=== PATIENT | male | born 1930 | race Caucasian/White ===

== ENCOUNTER → 2016-09-01 | Outpatient (CLI) | payer OTHER, MEDICARE ==
[~2016-09-01] MED LIST: ATEN50TA8 PO; BICA50TA2 PO; CALC1CAP36 PO; HYDR12.55 PO; PRLSR20 PO
== END | disposition home or self-care (01) ==
LOC: C.LABSPEC 11:24
PROVIDERS: ATTEND Internal Medicine
DX: R19.5 Other fecal abnormalities (principal)

== ENCOUNTER → 2016-09-02 | Outpatient (CLI) | payer OTHER, MEDICARE ==
--- NOTE | 2016-09-02 11:07 | DIAGNOSTIC IMAGING REPORT ---
ABDOMEN AND PELVIS CT WITH ORAL CONTRAST CT DOSE: 703.32 mGy.cm HISTORY: Weight loss. Abdominal cramping. Loose stools. TECHNIQUE: Multiaxial CT images of the abdomen and pelvis were performed following the use of oral contrast. COMPARISON STUDY: None. FINDINGS: There is a 3 mm nodule within the right middle lobe. The left lung base is clear. No pneumoperitoneum. No pneumatosis. There is a right total hip arthroplasty. There is a right-sided L5 pars defect. The unenhanced liver, spleen, adrenal glands, gallbladder, and pancreas appear to be unremarkable. No renal stones or hydronephrosis. Multiple bilateral renal hypodense lesions. Some these demonstrate faint peripheral calcification. These are incompletely characterized on this noncontrast study but favor cysts. Dominant lesion within the upper pole of the right kidney measures 8 cm. No retroperitoneal lymphadenopathy. The bladder is not well-distended and partially obscured by the metallic artifact at the pelvis. Tiny fat-containing left inguinal hernia. A fat-containing structure within the deep pelvis on image 392 likely represents an epiploic appendage. There is mild soft tissue thickening surrounding this epiploic appendage without associated fat stranding. Therefore, this is likely chronic. Colonic diverticulosis. No bowel wall thickening or obstruction. The appendix is not identified and is likely surgically absent. The spleen is top normal in size measuring 12 cm. IMPRESSION: 1. No bowel wall thickening or obstruction. 2. Colonic diverticulosis. 3. Multiple bilateral renal hypodense lesions. These are incompletely characterized on this noncontrast study but favor cysts. 4. Additional findings as described above. Electronically signed by: Jero Knight M.D. 09/02/2016 11:06 AM Dictated Date/Time: 09/02/2016 10:54 AM
== END | disposition home or self-care (01) ==
LOC: C.CTS 10:24
PROVIDERS: ATTEND Internal Medicine
DX: K57.30 Diverticulosis of large intestine without perforation or abscess without bleeding (principal); N28.9 Disorder of kidney and ureter, unspecified; R63.4 Abnormal weight loss

== ENCOUNTER → 2017-02-19 | Outpatient (CLI) | payer OTHER, MEDICARE ==
[2017-02-19 08:19] LABS: URINE TOTAL PROTEIN < 5.0 mg/dl (0-11.9)
== END | disposition home or self-care (01) ==
LOC: C.LABSPEC 07:34
PROVIDERS: ATTEND Internal Medicine Nephrology
DX: N18.3 Chronic kidney disease, stage 3 (moderate) (principal)

== ENCOUNTER 2017-11-09 19:02 | Inpatient (IN) | payer OTHER, MEDICARE ==
[~2017-11-09] VITALS: Ht 188 cm; Wt 88.0 kg
--- NOTE | 2017-11-09 19:21 | EMERGENCY ROOM VISIT NOTE ---
History Report prepared by Patrick: Xenia Gorman Under the Supervision of: Estrella CraigO. First contact with patient: 19:04 Chief Complaint: CARDIAC ASSESSMENT Stated Complaint: CHEST PAIN History of Present Illness The patient is a 87 year old male who presents to the Emergency Room with complaints of persistent episodes of chest pain that began about 6 hours prior to arrival. He reports that about an hour after eating lunch, he began experiencing chest pain. The patient states that the pain went away on its own, but returned prior to arrival. During this second episode, the patient was also experiencing severe chills. He notes that he has been experiencing shortness of breath recently, stating that it worsened with exertion. The patient denies any recent fevers, nausea, or vomiting. He states that he had a stress performed within the last 6 months, which showed normal results. Per EMS, the patient has a history of metastasis and leukemia, noting that he takes chemotherapy pills everyday. Source of History: patient Onset: about 6 hours ago Position: chest Quality: other (chest pain) Timing: other (persistent) Associated Symptoms: + chills, No fevers, No nausea, No vomiting Review of Systems See HPI for pertinent positives & negatives. A total of 10 systems reviewed and were otherwise negative. Past Medical & Surgical Medical Problems: (1) Asthma (2) HTN (hypertension) (3) Prostate carcinoma Surgical Problems: (1) History of appendectomy (2) History of herniorrhaphy Family History Patient reports no known family medical history. No pertinent family history. Social History Smoking Status: Never Smoker Marital Status: Housing Status: lives with family Occupation Status: retired Current/Historical Medications Scheduled Atenolol (Tenormin), 25 MG PO DAILY Bicalutamide (Casodex), 50 MG PO DAILY Calcitriol (Calcitriol), 0.25 MCG PO DAILY Calcium Polycarbophil (Fibercon), 625 MG PO DAILY Cranberry (Vaccinium Macrocarp (Cranberry), 500 MG PO DAILY Cyanocobalamin (Cyanocobalamin), 1 DOSE IM Q2 WEEKS Diltiazem Hcl Coated Beads (Cartia Xt), 240 MG PO Q2D Hydrochlorothiazide (Hctz), 12.5 MG PO Q2D Omeprazole (Prilosec), 40 MG PO DAILY Zolpidem Tartrate (Zolpidem Tartrate), 10 MG PO HS Allergies Coded Allergies: Penicillins (Verified Allergy, Mild, 08/24/09) RASH Sulfa Antibiotics (Verified Allergy, Unknown, UNKNOWN, 08/13/14) Physical Exam Vital Signs Date Time Temp Pulse Resp B/P (MAP) Pulse Ox O2 Delivery O2 Flow Rate FiO2 11/09/17 22:00 73 20 164/89 94 Room Air 11/09/17 21:09 70 20 142/78 96 Nasal Cannula 2.0 11/09/17 19:43 58 20 152/74 98 Nasal Cannula 2.0 11/09/17 19:33 98 Nasal Cannula 2.0 11/09/17 19:25 97 Room Air 11/09/17 19:20 57 11/09/17 19:17 95 Room Air 11/09/17 19:17 36.6 80 20 127/71 95 Room Air Physical Exam GENERAL: Patient is awake, alert, and in no acute distress. Patient is resting comfortably and showing no signs of anxiety EYES: The conjunctivae are clear. The pupils are round and reactive. EARS, NOSE, MOUTH AND THROAT: The nose is without any evidence of any deformity. Mucous membranes are moist tongue is midline NECK: The neck is nontender and supple. RESPIRATORY: Normal respiratory effort is noted there is no evidence of wheezing rhonchi or rales CARDIOVASCULAR: Regular rate and rhythm noted there no murmurs rubs or gallops normal S1 normal S2 GASTROINTESTINAL: The abdomen is soft. Bowel sounds are present in all quadrants. Abdomen is nontender MUSCULOSKELETAL/EXTREMITIES: There is no evidence of gross deformity full range of motion is noted in the hips and shoulders SKIN: Trade pedal edema bilaterally. There are no petechiae, pallor or cyanosis noted. NEUROLOGIC: Patient is awake alert and oriented x3 Medical Decision & Procedures ER Provider Diagnostic Interpretation: Radiology results as stated below per my review and radiologist interpretation: CHEST ONE VIEW PORTABLE HISTORY: Atypical CHEST PAIN COMPARISON: Chest 08/13/2014. FINDINGS: The lungs are clear. Cardiac silhouette is normal in size. No pleural effusions. No pneumothorax. IMPRESSION: No acute process. Electronically signed by: Jero Knight M.D. 11/09/2017 7:37 PM Dictated Date/Time: 11/09/2017 7:35 PM Laboratory Results 11/09/17 18:32 Red Blood Count 3.66, Mean Corpuscular Volume 95.4, Mean Corpuscular Hemoglobin 30.9, Mean Corpuscular Hemoglobin Concent 32.4, Mean Platelet Volume 10.1, Neutrophils (%) (Auto) 9.6, Lymphocytes (%) (Auto) 88.4, Monocytes (%) (Auto) 1.5, Eosinophils (%) (Auto) 0.2, Basophils (%) (Auto) 0.1, Neutrophils # (Auto) 6.05, Lymphocytes # (Auto) 55.71, Monocytes # (Auto) 0.93, Eosinophils # (Auto) 0.11, Basophils # (Auto) 0.09 11/09/17 18:32 Test 11/09/17 18:32 11/09/17 19:26 White Blood Count 63.03 K/uL (4.8-10.8) Red Blood Count 3.66 M/uL (4.7-6.1) Hemoglobin 11.3 g/dL (14.0-18.0) Hematocrit 34.9 % (42-52) Mean Corpuscular Volume 95.4 fL (80-100) Mean Corpuscular Hemoglobin 30.9 pg (25-34) Mean Corpuscular Hemoglobin Concent 32.4 g/dl (32-36) Platelet Count 179 K/uL (130-400) Mean Platelet Volume 10.1 fL (7.4-10.4) Neutrophils (%) (Auto) 9.6 % Lymphocytes (%) (Auto) 88.4 % Monocytes (%) (Auto) 1.5 % Eosinophils (%) (Auto) 0.2 % Basophils (%) (Auto) 0.1 % Neutrophils # (Auto) 6.05 K/uL (1.4-6.5) Lymphocytes # (Auto) 55.71 K/uL (1.2-3.4) Monocytes # (Auto) 0.93 K/uL (0.11-0.59) Eosinophils # (Auto) 0.11 K/uL (0-0.5) Basophils # (Auto) 0.09 K/uL (0-0.2) RDW Standard Deviation 51.2 fL (36.4-46.3) RDW Coefficient of Variation 14.8 % (11.5-14.5) Immature Granulocyte % (Auto) 0.2 % Immature Granulocyte # (Auto) 0.14 K/uL (0.00-0.02) Smudge Cells PRESENT Ovalocytes 1+ Echinocytes 1+ Prothrombin Time 12.1 SECONDS (9.0-12.0) Prothromb Time International Ratio 1.2 (0.9-1.1) Activated Partial Thromboplast Time 26.2 SECONDS (21.0-31.0) Partial Thromboplastin Ratio 1.0 Anion Gap 8.0 mmol/L (3-11) Est Creatinine Clear Calc Drug Dose 33.4 ml/min Estimated GFR () 36.9 Estimated GFR (Non- 31.9 BUN/Creatinine Ratio 14.4 (10-20) Calcium Level 8.6 mg/dl (8.5-10.1) Total Bilirubin 0.4 mg/dl (0.2-1) Direct Bilirubin 0.1 mg/dl (0-0.2) Aspartate Amino Transf (AST/SGOT) 14 U/L (15-37) Alanine Aminotransferase (ALT/SGPT) 14 U/L (12-78) Alkaline Phosphatase 164 U/L (45-117) Total Creatine Kinase 50 U/L (39-308) Creatine Kinase MB 1.4 ng/ml (0.5-3.6) Creatine Kinase MB Ratio 2.8 (0-3.0) Total Protein 7.2 gm/dl (6.4-8.2) Albumin 3.6 gm/dl (3.4-5.0) Lipase 192 U/L (73-393) Bedside Troponin I < 0.030 ng/ml (0-0.045) Laboratory results per my review. ECG Per My Interpretation Indication: chest pain Rate (beats per minute): 61 Rhythm: normal sinus Findings: PAC, ST depression (Inferior, anterior, and lateral) Comparison ECG Date: initial EKG performed by EMS Change: EKG performed at hospital after arrival: sinus bradycardia, rate of 58, 1st degree AV block, PVC's noted, improvement of previously noted ST depressions. Similar to EKG from 01/06/2002. ED Course 1904: The patient was evaluated in room A3. A complete history and physical examination were performed. 2040: I discussed the patient's case with Maycol Camilo [facility]. The patient will be evaluated for further management. Medical Decision Prior records/ancillary studies reviewed. Triage Nursing notes reviewed. Additional history obtained from EMS. The patient's history was concerning for chest pain. Differential diagnosis: Etiologies such as cardiac ischemia, aortic dissection, pulmonary embolism, pneumonia, pneumothorax, musculoskeletal, infections, pericarditis, myocarditis , esophageal rupture, gastrointestinal, as well as others were entertained. The patient is an 87-year-old male who presented to the emergency department by ambulance for chest discomfort. According to the paramedics the patient had very significant chest pain as well as diaphoresis. His initial EKG done by the prehospital personnel did reveal significant ST segment abnormalities. The patient was treated with aspirin and nitroglycerin prior to arrival. He was pain-free upon arrival. His initial EKG done by the prehospital personnel showed some ST segment abnormalities. Repeat EKG in the emergency department reviewed significant improvement. I discussed patient's laboratory and radiographic studies with him. I discussed the limitations of the emergency department workup for chest pain with him. At this time I feel the patient's discomfort is from a cardiac source especially given the exertional component. For this reason I discussed his case with the on-call [facility] hospitalist. They have agreed to evaluate the patient in the emergency department for further management and disposition. Medication Reconcilliation Current Medication List: was personally reviewed by me Blood Pressure Screening Patient's blood pressure: Elevated blood pressure Blood pressure disposition: Elevated BP felt to be situational Consults Time Called: 2040 Consulting Physician: GUS Menjivar Returned Call: 2040 I discussed the patient's case with Maycol Camilo [facility]. The patient will be evaluated for further management. Impression Primary Impression: Chest pain Additional Impression: Abnormal EKG Scribe Attestation The scribe's documentation has been prepared under my direction and personally reviewed by me in its entirety. I confirm that the note above accurately reflects all work, treatment, procedures, and medical decision making performed by me. Departure Information Dispostion Being Evaluated By Hospitalist Referrals Siria Pizarro (PCP) Forms IMPORTANT VISIT INFORMATION Patient Instructions My [facility] Problem Qualifiers Primary Impression: Chest pain Chest pain type: unspecified Qualified Codes: R07.9 - Chest pain, unspecified
--- NOTE | 2017-11-09 19:39 | DIAGNOSTIC IMAGING REPORT ---
CHEST ONE VIEW PORTABLE HISTORY: Atypical CHEST PAIN COMPARISON: Chest 08/13/2014. FINDINGS: The lungs are clear. Cardiac silhouette is normal in size. No pleural effusions. No pneumothorax. IMPRESSION: No acute process. Electronically signed by: Jero Knight M.D. 11/09/2017 7:37 PM Dictated Date/Time: 11/09/2017 7:35 PM
[2017-11-09 19:44] LABS: ALBUMIN 3.6 gm/dl (3.4-5.0); CALCIUM 8.6 mg/dl (8.5-10.1); CREATININE 1.88 mg/dl (0.60-1.40); POTASSIUM 3.7 mmol/L (3.5-5.1)
[2017-11-09 19:46] LABS: INR 1.2 (0.9-1.1); PTT PATIENT 26.2 SECONDS (21.0-31.0)
[2017-11-09 19:49] LABS: CKMB 1.4 ng/ml (0.5-3.6); TOTAL PROTEIN 7.2 gm/dl (6.4-8.2)
[2017-11-09] MEDS ORDERED: DILT240C48 PO (19:58)
[2017-11-09] MEDS ORDERED: HYDR25TA4 PO (19:58)
[2017-11-09] MEDS ORDERED: ZOLP10TA6 PO (19:58)
[2017-11-09] MEDS ORDERED: OMEP40CA41 PO (20:07)
[2017-11-09] MEDS ORDERED: CYNI1000 IM (20:09)
[2017-11-09] MEDS ORDERED: CRAN500C2 PO (20:09)
[2017-11-09] MEDS ORDERED: CALC625T PO (20:09)
[2017-11-09 20:22] LABS: HEMATOCRIT 34.9 % (42-52); HEMOGLOBIN 11.3 g/dL (14.0-18.0); MEAN CELL VOLUME 95.4 fL (80-100); MEAN CORPUSCULAR HEMOGLOBIN 30.9 pg (25-34); MEAN CORPUSCULAR HGB CONC 32.4 g/dl (32-36); MEAN PLATELET VOLUME 10.1 fL (7.4-10.4); PLATELET COUNT 179 K/uL (130-400); RED CELL DISTRIBUTION WIDTH CV 14.8 % (11.5-14.5); RED CELL DISTRIBUTION WIDTH SD 51.2 fL (36.4-46.3); WHITE BLOOD COUNT 63.03 K/uL (4.8-10.8)
[2017-11-09 21:03] LABS: BASO % 0.1 %; BASO ABS # 0.09 K/uL (0-0.2); EOS % 0.2 %; EOS ABS # 0.11 K/uL (0-0.5); IG# 0.14 K/uL (0.00-0.02); LYMPH % 88.4 %; LYMPH ABS # 55.71 K/uL (1.2-3.4); MONO % 1.5 %; MONO ABS # 0.93 K/uL (0.11-0.59); NEUT % 9.6 %; NEUT ABS # 6.05 K/uL (1.4-6.5)
[2017-11-09] MEDS ORDERED: ALUMINUM/MAGNESIUM/SIMETH (MAALOX MAX) 30 ML UDC PO PRN (22:00)
[2017-11-09] MEDS ORDERED: ONDANSETRON INJ 2 MG/ML 2 ML VIAL IV PRN (22:00)
[2017-11-09] MEDS ORDERED: MAGNESIUM HYDROXIDE SUSP 30 ML UDC PO PRN (22:00)
[2017-11-09] MEDS ORDERED: ACETAMINOPHEN 325 MG TAB PO PRN (22:00)
[2017-11-09] MEDS ORDERED: POLYETHYLENE (MIRALAX) 17 GM PACK PO PRN (22:00)
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
[2017-11-10] VITALS (22 sets, daily range): BP systolic 83–151; BP diastolic 49–81; PULSE 56–79; TEMP 36.6–36.9; O2SAT 91–99; Ht 188 cm; Wt 88.0 kg
[2017-11-10] MEDS ORDERED: IV FLUIDS COMPLETED PRN (01:30)
[2017-11-10] MEDS: NITROGLYCERIN 0.4 MG SL PER TAB CHARGE SL PRN ×2 (02:16→02:24)
[2017-11-10] MEDS: ZOLPIDEM TARTRATE 10 MG TAB PO SCH ×2 (02:44→22:41)
[2017-11-10 04:29] LABS: CALCIUM 8.8 mg/dl (8.5-10.1); CREATININE 1.57 mg/dl (0.60-1.40); POTASSIUM 3.6 mmol/L (3.5-5.1)
[2017-11-10 04:55] LABS: HEMATOCRIT 32.4 % (42-52); HEMOGLOBIN 10.3 g/dL (14.0-18.0); MEAN CELL VOLUME 95.9 fL (80-100); MEAN CORPUSCULAR HEMOGLOBIN 30.5 pg (25-34); MEAN CORPUSCULAR HGB CONC 31.8 g/dl (32-36); MEAN PLATELET VOLUME 10.2 fL (7.4-10.4); PLATELET COUNT 144 K/uL (130-400); RED CELL DISTRIBUTION WIDTH CV 14.8 % (11.5-14.5); RED CELL DISTRIBUTION WIDTH SD 50.4 fL (36.4-46.3); WHITE BLOOD COUNT 51.63 K/uL (4.8-10.8)
[2017-11-10] MEDS ORDERED: HEPARIN 25,000 UNIT/500ML D5W 500 ML IV SCH (05:00)
[2017-11-10] MEDS ORDERED: HEPARIN IV BOLUS 7,000 UNIT in SYRINGE 0 ML IV ONE (05:00)
[2017-11-10 05:36] LABS: BASO % 0.1 %; BASO ABS # 0.06 K/uL (0-0.2); EOS % 0.1 %; EOS ABS # 0.07 K/uL (0-0.5); IG# 0.08 K/uL (0.00-0.02); LYMPH % 90.8 %; LYMPH ABS # 46.89 K/uL (1.2-3.4); MONO % 1.1 %; MONO ABS # 0.59 K/uL (0.11-0.59); NEUT % 7.7 %; NEUT ABS # 3.94 K/uL (1.4-6.5)
[2017-11-10] MEDS ORDERED: ASPIRIN 81 MG CHEW PO STA (07:59)
[2017-11-10] MEDS: DILTIAZEM HCL 240 MG CAPCR PO SCH (08:43)
[2017-11-10] MEDS: HYDROCHLOROTHIAZIDE 25 MG TAB PO SCH (08:43)
[2017-11-10] MEDS ORDERED: ASPIRIN 81 MG ECTAB PO SCH ×2 (09:00)
[2017-11-10] MEDS: ATORVASTATIN 40 MG TAB PO SCH (09:00)
[2017-11-10] MEDS: BICALUTAMIDE 50 MG TAB PO SCH (09:00)
--- NOTE | 2017-11-10 09:27 | Cardiology Consultation ---
Cardiology Consultation Date of Consultation: Nov 10, 2017. Requesting Physician: Dr. Warren Reason for Consultation: Chest pain Pt evaluation today including: conversation w/ patient, physical exam, lab review, review of studies, review of inpatient medication list History of Present Illness This is an 87 yo male with no diagnosed CAD but a history of AGUILAR for which he had evaluation 12/30/2016 with an echo and dobutamine stress test which were unremarkable. He has had progressive fatigue and over the past few months significantly more AGUILAR but no orthopnea or PND, no leg swelling. No chest pain until yesterday when he had onset of rest L sided chest pain associated with SOB. 911 was called and the symptoms were relieved by NTGX2. His initial torponin was normal, but he had recurrent chest pain during the night, also relieved by NTGX2 and his second troponin was elevated to 0.69. He was started on Heparin and is now pain free. He has a history of untreated CLL, no bleeding history. He has been NPO. He also has a history of palpitations and has frequent PVCs. Past Medical/Surgical History (1) Prostate carcinoma (2) Asthma (3) HTN (hypertension) (4) History of appendectomy (5) History of herniorrhaphy Family History Patient reports no known family medical history. Social History Smoking Status: Never Smoker History of Alcohol Use: No Review of Systems Constitutional: No fever, No weight loss, No weakness Respiratory: + see HPI, + shortness of breath, + dyspnea on exertion, No cough , No wheezing Cardiac: + see HPI, + chest pain, + palpitations, No orthopnea, No PND, No edema Abdomen: No pain, No nausea, No vomiting, No diarrhea, No GI bleeding Male : No urinary frequency, No nocturia more than once/night, No slowing stream, No sexual dysfunction Neurologic: No paralysis, No weakness, No numbness/tingling, No balance problems Heme: No abnormal bleeding/bruising, No clotting problems Endo: No fatigue Skin: No problem reported All Other Systems: Reviewed and Negative Allergies Coded Allergies: Penicillins (Verified Allergy, Mild, 08/24/09) RASH Sulfa Antibiotics (Verified Allergy, Unknown, UNKNOWN, 08/13/14) Medications Current Inpatient Medications Medications (Trade) Dose Ordered Sig/Sigifredo Route Start Time Stop Time Status Last Admin Dose Admin Acetaminophen (Tylenol Tab) 650 mg Q4H PRN PO 11/09/17 22:00 12/09/17 21:59 Al Hydrox/Mg Hydrox/Simethicone (Maalox Max Susp) 15 ml Q4H PRN PO 11/09/17 22:00 12/09/17 21:59 Magnesium Hydroxide (Milk Of Magnesia Susp) 30 ml Q12H PRN PO 11/09/17 22:00 12/09/17 21:59 Ondansetron HCl (Zofran Inj) 4 mg Q6H PRN IV 11/09/17 22:00 12/09/17 21:59 Nitroglycerin (Nitrostat Tab) 0.4 mg UD PRN SL 11/09/17 22:00 12/09/17 21:59 11/10/17 02:24 0.4 MG Polyethylene (Miralax Powder Packet) 17 gm DAILY PRN PO 11/09/17 22:00 12/09/17 21:59 Atenolol (Tenormin Tab) 25 mg DAILY PO 11/10/17 09:00 12/10/17 08:59 11/10/17 08:42 25 MG Bicalutamide (Casodex Tab) 50 mg DAILY PO 11/10/17 09:00 12/10/17 08:59 Diltiazem HCl (Cardizem Cd Cap) 240 mg Q2D PO 11/10/17 09:00 12/10/17 08:59 11/10/17 08:43 240 MG Hydrochlorothiazide (Hydrochlorothiazide Tab) 12.5 mg Q2D PO 11/10/17 09:00 12/10/17 08:59 11/10/17 08:43 12.5 MG Miscellaneous (Iv Fluids Completed) 1 ea PRN PRN N/A 11/10/17 01:30 11/10/18 01:29 Zolpidem Tartrate (Ambien Tab) 10 mg HS PO 11/10/17 02:30 12/10/17 02:29 11/10/17 02:44 10 MG Heparin Sodium/ Dextrose 500 ml @ 31 mls/hr Q16H8M IV 11/10/17 05:00 12/10/17 04:59 11/10/17 05:06 31 MLS/HR Atorvastatin Calcium (Lipitor Tab) 80 mg QAM PO 11/10/17 09:00 12/10/17 08:59 Aspirin (Ecotrin Tab) 81 mg QAM PO 11/11/17 09:00 12/10/17 08:59 Physical Exam Vital Signs Past 12 Hours Date Time Temp Pulse Resp B/P (MAP) Pulse Ox O2 Delivery O2 Flow Rate FiO2 11/10/17 07:31 36.6 76 16 131/74 (93) 95 Room Air 11/10/17 06:40 95 Room Air 11/10/17 04:05 36.8 73 16 142/71 (94) 93 Nasal Cannula 2.0 11/10/17 04:00 95 Nasal Cannula 2.0 11/10/17 02:25 79 18 104/57 (73) 91 Nasal Cannula 2.0 11/10/17 02:16 36.7 71 18 151/80 (103) 94 Nasal Cannula 2.0 11/10/17 00:02 36.8 70 18 143/81 97 Room Air 11/09/17 23:00 59 20 139/72 97 Room Air 11/09/17 22:00 73 20 164/89 94 Room Air 11/09/17 21:09 70 20 142/78 96 Nasal Cannula 2.0 Constitutional: General Apperance: heathly-appearing Level of Distress: NAD Psychiatric: Mental Status: active & alert Head: normocephalic Eyes: EOM: EOMI ENMT: normal ENT inspection, hearing grossly normal Neck: supple, no masses Lungs: Respiratory effort: no dyspnea, good air movement Auscultation: breath sounds normal, no wheezing Cardiovascular: Heart Auscultation: RRR, no murmurs, no rubs, no gallops Peripheral Pulses: Bruits: none appreciated Abdomen: Bowel Sounds: normal Inspection & Palpation: soft, no tenderness, guarding & rebound, no masses Musculoskeletal: normal strength (5/5 throughout) Extremities: no edema Neurologic: Cranial Nerves: grossly intact Sensation: grossly intact Data Laboratory Results: Last 24 Hours Test 11/09/17 18:32 11/09/17 19:26 11/10/17 03:42 White Blood Count 63.03 K/uL 51.63 K/uL Red Blood Count 3.66 M/uL 3.38 M/uL Hemoglobin 11.3 g/dL 10.3 g/dL Hematocrit 34.9 % 32.4 % Mean Corpuscular Volume 95.4 fL 95.9 fL Mean Corpuscular Hemoglobin 30.9 pg 30.5 pg Mean Corpuscular Hemoglobin Concent 32.4 g/dl 31.8 g/dl Platelet Count 179 K/uL 144 K/uL Mean Platelet Volume 10.1 fL 10.2 fL Neutrophils (%) (Auto) 9.6 % 7.7 % Lymphocytes (%) (Auto) 88.4 % 90.8 % Monocytes (%) (Auto) 1.5 % 1.1 % Eosinophils (%) (Auto) 0.2 % 0.1 % Basophils (%) (Auto) 0.1 % 0.1 % Neutrophils # (Auto) 6.05 K/uL 3.94 K/uL Lymphocytes # (Auto) 55.71 K/uL 46.89 K/uL Monocytes # (Auto) 0.93 K/uL 0.59 K/uL Eosinophils # (Auto) 0.11 K/uL 0.07 K/uL Basophils # (Auto) 0.09 K/uL 0.06 K/uL RDW Standard Deviation 51.2 fL 50.4 fL RDW Coefficient of Variation 14.8 % 14.8 % Immature Granulocyte % (Auto) 0.2 % 0.2 % Immature Granulocyte # (Auto) 0.14 K/uL 0.08 K/uL Smudge Cells PRESENT PRESENT Ovalocytes 1+ 1+ Echinocytes 1+ Prothrombin Time 12.1 SECONDS Prothromb Time International Ratio 1.2 Activated Partial Thromboplast Time 26.2 SECONDS Partial Thromboplastin Ratio 1.0 Sodium Level 140 mmol/L 141 mmol/L Potassium Level 3.7 mmol/L 3.6 mmol/L Chloride Level 104 mmol/L 109 mmol/L Carbon Dioxide Level 28 mmol/L 27 mmol/L Anion Gap 8.0 mmol/L 5.0 mmol/L Blood Urea Nitrogen 27 mg/dl 25 mg/dl Creatinine 1.88 mg/dl 1.57 mg/dl Est Creatinine Clear Calc Drug Dose 33.4 ml/min 40.0 ml/min Estimated GFR () 36.9 45.9 Estimated GFR (Non- 31.9 39.6 BUN/Creatinine Ratio 14.4 15.7 Random Glucose 142 mg/dl 108 mg/dl Calcium Level 8.6 mg/dl 8.8 mg/dl Total Bilirubin 0.4 mg/dl Direct Bilirubin 0.1 mg/dl Aspartate Amino Transf (AST/SGOT) 14 U/L Alanine Aminotransferase (ALT/SGPT) 14 U/L Alkaline Phosphatase 164 U/L Total Creatine Kinase 50 U/L Creatine Kinase MB 1.4 ng/ml Creatine Kinase MB Ratio 2.8 Total Protein 7.2 gm/dl Albumin 3.6 gm/dl Lipase 192 U/L Bedside Troponin I < 0.030 ng/ml Troponin I 0.692 ng/ml Imaging: CXR unremarkable EKG: SR, no ST elevation. ECG during night shows subtle lateral T abnormalcies Telemetry reviewed: SR, PVCs Echo: Reviewed at bedside: Severe LV dysfunction Assessment & Plan 1. CP: Given his elevated Troponin and chest pain relieved by NTG CAD is the diagnosis of exclusion, although this is not consistent with an STEMI. His echo and normal enzymes on admission suggest long standing CAD or perhaps a cardiomyopathy. I have suggested a cardiac catheterization. 2. AGUILAR: This is long standing but now progressive. Related most likely to LV dysfunction or an anginal equivalent from CAD. 3. LV dysfunction: His LV was normal by echo 12/30/2016, clearly it is not now. We need to exclude CAD. 4. CLL: He has an elevated lymphocyte count, but no bleeding and his platelet count is normal. This should not interfere with the catheterization. 5. CKD: His creatinine is normally in the range of 1.5-1.6, where it is today. This should not pose and undue risk of dye nephrotoxicity. Thank You
[2017-11-10 11:24] LABS: PTT PATIENT 66.4 SECONDS (21.0-31.0)
--- NOTE | 2017-11-10 13:11 | Family Medicine Progress Note ---
Progress Note Date of Service Nov 10, 2017. Subjective Pt evaluation today including: conversation w/ patient, physical exam, chart review, lab review Pain: denies any pain PO Intake: NPO for procedure Voiding: no voiding problems This PM pt reports dyspnea on exertion but no sob at rest. No cp (resolved around 2am this AM). Denies any palpitations, n/v, abdominal pain. Constitutional: No fever Respiratory: + dyspnea on exertion, No shortness of breath Cardiovascular: No chest pain Abdomen: No pain, No nausea, No vomiting Male : No dysuria Medications Current Inpatient Medications Medications (Trade) Dose Ordered Sig/Sigifredo Route Start Time Stop Time Status Last Admin Dose Admin Acetaminophen (Tylenol Tab) 650 mg Q4H PRN PO 11/09/17 22:00 12/09/17 21:59 Al Hydrox/Mg Hydrox/Simethicone (Maalox Max Susp) 15 ml Q4H PRN PO 11/09/17 22:00 12/09/17 21:59 Magnesium Hydroxide (Milk Of Magnesia Susp) 30 ml Q12H PRN PO 11/09/17 22:00 12/09/17 21:59 Ondansetron HCl (Zofran Inj) 4 mg Q6H PRN IV 11/09/17 22:00 12/09/17 21:59 Nitroglycerin (Nitrostat Tab) 0.4 mg UD PRN SL 11/09/17 22:00 12/09/17 21:59 11/10/17 02:24 0.4 MG Polyethylene (Miralax Powder Packet) 17 gm DAILY PRN PO 11/09/17 22:00 12/09/17 21:59 Atenolol (Tenormin Tab) 25 mg DAILY PO 11/10/17 09:00 12/10/17 08:59 11/10/17 08:42 25 MG Bicalutamide (Casodex Tab) 50 mg DAILY PO 11/10/17 09:00 12/10/17 08:59 Diltiazem HCl (Cardizem Cd Cap) 240 mg Q2D PO 11/10/17 09:00 12/10/17 08:59 11/10/17 08:43 240 MG Hydrochlorothiazide (Hydrochlorothiazide Tab) 12.5 mg Q2D PO 11/10/17 09:00 5/24/18 08:59 11/10/17 08:43 12.5 MG Miscellaneous (Iv Fluids Completed) 1 ea PRN PRN N/A 11/10/17 01:30 11/10/18 01:29 Zolpidem Tartrate (Ambien Tab) 10 mg HS PO 11/10/17 02:30 12/10/17 02:29 11/10/17 02:44 10 MG Heparin Sodium/ Dextrose 500 ml @ 31 mls/hr Q16H8M IV 11/10/17 05:00 12/10/17 04:59 11/10/17 05:06 31 MLS/HR Atorvastatin Calcium (Lipitor Tab) 80 mg QAM PO 11/10/17 09:00 12/10/17 08:59 Aspirin (Ecotrin Tab) 81 mg QAM PO 11/11/17 09:00 12/10/17 08:59 Objective Vital Signs Date Time Temp Pulse Resp B/P (MAP) Pulse Ox O2 Delivery O2 Flow Rate FiO2 11/10/17 12:00 Room Air 11/10/17 12:00 36.6 59 16 117/58 (77) 97 Room Air 11/10/17 08:00 Room Air 11/10/17 07:31 36.6 76 16 131/74 (93) 95 Room Air 11/10/17 06:40 95 Room Air 11/10/17 04:05 36.8 73 16 142/71 (94) 93 Nasal Cannula 2.0 11/10/17 04:00 95 Nasal Cannula 2.0 11/10/17 02:25 79 18 104/57 (73) 91 Nasal Cannula 2.0 11/10/17 02:16 36.7 71 18 151/80 (103) 94 Nasal Cannula 2.0 11/10/17 00:02 36.8 70 18 143/81 97 Room Air 11/09/17 23:00 59 20 139/72 97 Room Air 11/09/17 22:00 73 20 164/89 94 Room Air 11/09/17 21:09 70 20 142/78 96 Nasal Cannula 2.0 11/09/17 19:43 58 20 152/74 98 Nasal Cannula 2.0 11/09/17 19:33 98 Nasal Cannula 2.0 11/09/17 19:25 97 Room Air 11/09/17 19:20 57 11/09/17 19:17 95 Room Air 11/09/17 19:17 36.6 80 20 127/71 95 Room Air Physical Exam General Appearance: no apparent distress Eyes: normal inspection Neck: supple Respiratory/Chest: lungs clear, normal breath sounds Cardiovascular: regular rate, rhythm, no murmur Abdomen: normal bowel sounds, non tender, soft Extremities: non-tender, normal inspection, no pedal edema Neurologic/Psychiatric: alert, oriented x 3 Skin: normal color, warm/dry Laboratory Results 11/10/17 03:42 Red Blood Count 3.38, Mean Corpuscular Volume 95.9, Mean Corpuscular Hemoglobin 30.5, Mean Corpuscular Hemoglobin Concent 31.8, Mean Platelet Volume 10.2, Neutrophils (%) (Auto) 7.7, Lymphocytes (%) (Auto) 90.8, Monocytes (%) (Auto) 1.1, Eosinophils (%) (Auto) 0.1, Basophils (%) (Auto) 0.1, Neutrophils # (Auto) 3.94, Lymphocytes # (Auto) 46.89, Monocytes # (Auto) 0.59, Eosinophils # (Auto) 0.07, Basophils # (Auto) 0.06 11/10/17 03:42 Test 11/09/17 18:32 11/09/17 19:26 11/10/17 03:42 11/10/17 10:51 Echinocytes 1+ Prothrombin Time 12.1 SECONDS (9.0-12.0) Prothromb Time International Ratio 1.2 (0.9-1.1) Total Bilirubin 0.4 mg/dl (0.2-1) Direct Bilirubin 0.1 mg/dl (0-0.2) Aspartate Amino Transf (AST/SGOT) 14 U/L (15-37) Alanine Aminotransferase (ALT/SGPT) 14 U/L (12-78) Alkaline Phosphatase 164 U/L (45-117) Total Creatine Kinase 50 U/L (39-308) Creatine Kinase MB 1.4 ng/ml (0.5-3.6) Creatine Kinase MB Ratio 2.8 (0-3.0) Total Protein 7.2 gm/dl (6.4-8.2) Albumin 3.6 gm/dl (3.4-5.0) Lipase 192 U/L (73-393) Bedside Troponin I < 0.030 ng/ml (0-0.045) White Blood Count 51.63 K/uL (4.8-10.8) Red Blood Count 3.38 M/uL (4.7-6.1) Hemoglobin 10.3 g/dL (14.0-18.0) Hematocrit 32.4 % (42-52) Mean Corpuscular Volume 95.9 fL (80-100) Mean Corpuscular Hemoglobin 30.5 pg (25-34) Mean Corpuscular Hemoglobin Concent 31.8 g/dl (32-36) Platelet Count 144 K/uL (130-400) Mean Platelet Volume 10.2 fL (7.4-10.4) Neutrophils (%) (Auto) 7.7 % Lymphocytes (%) (Auto) 90.8 % Monocytes (%) (Auto) 1.1 % Eosinophils (%) (Auto) 0.1 % Basophils (%) (Auto) 0.1 % Neutrophils # (Auto) 3.94 K/uL (1.4-6.5) Lymphocytes # (Auto) 46.89 K/uL (1.2-3.4) Monocytes # (Auto) 0.59 K/uL (0.11-0.59) Eosinophils # (Auto) 0.07 K/uL (0-0.5) Basophils # (Auto) 0.06 K/uL (0-0.2) RDW Standard Deviation 50.4 fL (36.4-46.3) RDW Coefficient of Variation 14.8 % (11.5-14.5) Immature Granulocyte % (Auto) 0.2 % Immature Granulocyte # (Auto) 0.08 K/uL (0.00-0.02) Smudge Cells PRESENT Ovalocytes 1+ Anion Gap 5.0 mmol/L (3-11) Est Creatinine Clear Calc Drug Dose 40.0 ml/min Estimated GFR () 45.9 Estimated GFR (Non- 39.6 BUN/Creatinine Ratio 15.7 (10-20) Calcium Level 8.8 mg/dl (8.5-10.1) Troponin I 2.860 ng/ml (0-0.045) Test 11/10/17 10:53 Activated Partial Thromboplast Time 66.4 SECONDS (21.0-31.0) Partial Thromboplastin Ratio 2.6 Date/Time Source Procedure Growth Status 11/10/17 00:00 Nasal MRSA DNA Surveillance Screen - Final Specimen Negative for MRSA by DNA Probe Complete Assessment and Plan 87 yoM with PMHX of CLL, HTN who p/w chest pain and worsening dyspnea on exertion. Initial troponin negative with subsequent uptrending troponins highest 2.86. Concern for lateral ST depression on EMS strip however no new ischemic changes on EKG. ECHO concerning for EF of 25-30% with akinesis of entire apex. Patient taken to farm labor contractor for potential re-vascularization. Chest pain: resolved s/p nitroglycerine - cxr neg - EKG negative for ischemic changes - elevated troponins to 2.86 - Stress Echo 01/03 negative for ischemia - ECHO today: LV systolic function mod-severely reduced; wall motion abnormalities; LA mod. dilated; mild mitral and aortic regurg; RV systolic pressure elevated 40-50mmHg; grade 1 diastolic dysfunction - Received aspirin 324mg once - On heparin drip - Started aspirin 81mg daily - Started Lipitor 80mg QAM - Continue Nitro PRN - Consult Cardiology - catheterization indicated - report pending HTN - continue home HCTZ 12.5 q2d, Atenolol 50 mg daily, Diltiazem 240 mg q 2d GERD - protonix 40mg QAM Leukocytosis - likely combination of stress demargination , CLL-related - Will monitor via CBC CLL -Continue Casodex DVT PPX - Lovenox Code: DNR Resident Physician Supervision Note: I interviewed and examined the patient. Discussed with Dr. Osorio and agree with findings and plan as documented in the note. I also discussed the case with residential solar sales consultant prior to the patient's cardiac cath. Final disposition will depend on the results of the cath later this afternoon. Documented By: Gabriele Chavira Resident Involvement: Resident Care Provided Care Provided: Adult Hospital Medicine
[2017-11-10] MEDS ORDERED: LIDOCAINE HCL 1% 20 ML VIAL ONE (13:37)
[2017-11-10] MEDS ORDERED: NiCARDipine HCL INJ 2.5 MG/ML 10 ML AMP ONE (13:38)
[2017-11-10] MEDS ORDERED: NITROGLYCERIN/D5W 100MCG/ML 20ML SYR ONE (13:38)
[2017-11-10] MEDS: MIDAZOLAM HCL 1 MG/ML 2ML VIAL ONE (13:49)
[2017-11-10] MEDS: FENTANYL CITRATE INJ 50 MCG/1 ML 2 ML VIAL ONE (13:50)
--- NOTE | 2017-11-10 14:16 | ECHOCARDIOGRAM REPORT ---
*NOTICE TO RECEIVING [employer] AGENCY This information is strictly Confidential and protected under [place] law. [place] law prohibits you from making any further disclosure of this information unless further disclosure is expressly permitted by the written consent of the person to whom it pertains or is authorized by law. A general authorization for the release of medical or other information is not sufficient for this purpose. Hospital accepts no responsibility if the information is made available to any other person, INCLUDING THE PATIENT. Interpretation Summary * Name: DAREN SALGADO Study Date: 11/10/2017 08:51 AM BP: 131/74 mmHg * Patient Location: .[facility]ICU\S\E110\S\1 HR: 76 * : 1930 (M/d/yyyy) Gender: Male Height: 74 in * Age: 87 yrs Ethnicity: CA Weight: 195 lb * Ordering Physician: Harry Leyva * Referring Physician: Self, Referred * Performed By: Conchita Akins RCS * * Reason For Study: Chest Pain * BSA: 2.1 m2 * -- Conclusions -- * Left ventricular systolic function is moderate to severely reduced. * Grade I diastolic dysfunction, (abnormal relaxation pattern). * There are regional wall motion abnormalities as specified. * The left atrium is moderately dilated. * Mild aortic regurgitation. * There is mild mitral regurgitation. * Right ventricular systolic pressure is elevated at 40-50mmHg. Procedure Details * A complete two-dimensional transthoracic echocardiogram was performed (2D, M-mode, Doppler and color flow Doppler). Left Ventricle * The left ventricle is normal in size. * There is normal left ventricular wall thickness. * Left ventricular systolic function is moderate to severely reduced. * Ejection Fraction = 25-30%. * Grade I diastolic dysfunction, (abnormal relaxation pattern). * There are regional wall motion abnormalities as specified. * The basal segments appear to contract normally with akinesis of the entire apex Right Ventricle * The right ventricle is normal in size and function. * The right ventricular systolic function is normal as assessed by tricuspid annular plane systolic excursion (TAPSE) (normal >1.5 cm). Atria * The left atrium is moderately dilated. * Right atrial size is normal. Mitral Valve * The mitral valve is grossly normal. * Cannot exclude a small prolapsing segment of the posterior leaflet * There is mild mitral regurgitation. Tricuspid Valve * The tricuspid valve is not well visualized, but is grossly normal. * There is mild tricuspid regurgitation. * Right ventricular systolic pressure is elevated at 40-50mmHg. Aortic Valve * Trileaflet valve with poor mobility of the right coronary cusp * Not adequately assessed * Mild aortic regurgitation. Pulmonic Valve * The pulmonic valve is not well visualized. Pericardium/Pleural * There is no pericardial effusion. MMode 2D Measurements and Calculations IVSd 1.0 cm IVSs 1.2 cm LVIDd 4.9 cm LVIDs 4.1 cm LVPWd 1.2 cm LVPWs 1.6 cm IVS/LVPW 0.89 FS 17.2 % EDV(Teich) 112.7 ml ESV(Teich) 72.4 ml EF(Teich) 35.8 % EDV(cubed) 117.5 ml ESV(cubed) 66.7 ml EF(cubed) 43.2 % % IVS thick 13.0 % % LVPW thick 35.3 % LV mass(C)d 201.8 grams LV mass(C)dI 93.9 grams/m\S\2 LV mass(C)s 208.5 grams LV mass(C)sI 97.0 grams/m\S\2 SV(Teich) 40.3 ml SI(Teich) 18.8 ml/m\S\2 SV(cubed) 50.8 ml SI(cubed) 23.6 ml/m\S\2 ACS 1.4 cm asc Aorta Diam 4.2 cm EDV(MOD-sp4) 156.0 ml ESV(MOD-sp4) 83.0 ml EF(MOD-sp4) 46.8 % EDV(MOD-sp2) 189.0 ml ESV(MOD-sp2) 111.0 ml EF(MOD-sp2) 41.3 % SV(MOD-sp4) 73.0 ml SI(MOD-sp4) 34.0 ml/m\S\2 SV(MOD-sp2) 78.0 ml SI(MOD-sp2) 36.3 ml/m\S\2 Doppler Measurements and Calculations MV E max tre 67.4 cm/sec MV A max tre 72.8 cm/sec MV E/A 0.93 MV P1/2t max tre 84.9 cm/sec MV P1/2t 55.8 msec MVA(P1/2t) 3.9 cm\S\2 MV dec slope 445.4 cm/sec\S\2 MV dec time 0.18 sec Ao V2 max 122.5 cm/sec Ao max PG 6.0 mmHg Ao max PG (full) 4.8 mmHg LV V1 max PG 1.2 mmHg LV V1 max 55.9 cm/sec PA V2 max 78.7 cm/sec PA max PG 2.5 mmHg PI max tre 223.6 cm/sec PI max PG 20.0 mmHg PI dec slope 88.2 cm/sec\S\2 PI P1/2t 742.2 msec TR max tre 297.0 cm/sec
[2017-11-10] MEDS ORDERED: HEPARIN SOD (PORCINE) 1000 UNIT/ML 10 ML VIAL ONE (14:24)
[2017-11-10] MEDS ORDERED: CLOPIDOGREL BISULFATE 300 MG TAB PO ONE (15:04)
--- NOTE | 2017-11-10 15:14 | Pre Sedation Assessment ---
Pre Sedation Assessment General Date of Sedation: Nov 10, 2017. Vital Signs Past 12 Hours Date Time Temp Pulse Resp B/P (MAP) Pulse Ox O2 Delivery O2 Flow Rate FiO2 11/10/17 15:04 63 16 129/64 (85) 98 Mask 3 11/10/17 12:00 Room Air 11/10/17 12:00 36.6 59 16 117/58 (77) 97 Room Air 11/10/17 08:00 Room Air 11/10/17 07:31 36.6 76 16 131/74 (93) 95 Room Air 11/10/17 06:40 95 Room Air 11/10/17 04:05 36.8 73 16 142/71 (94) 93 Nasal Cannula 2.0 11/10/17 04:00 95 Nasal Cannula 2.0 Review Cardiovascular: regular rate, rhythm, no edema Lungs: chest non-tender, lungs clear Pre-Sedation Airway Assessment Smoking Status: Never Smoker Hx of Sleep Apnea: No Hx of difficult intubation: No Short Thick Neck: No Thyro-mental Distance: > 3 Finger Breadths Oral Cavity: WNL Mallampati Classification: Class II ASA Classification: Class III NPO Status Date of Last Intake of Fluids: Nov 09, 2017 Time of Last Intake of Fluids: 1300 Date of Last Intake of Solids: Nov 09, 2017 Time of Last Intake of Solids: 1300 Procedure Planning Contraindications for Sedation: None Current Medications Reviewed: Yes Notes The planned sedation has been discussed with the patient. Informed Consent was obtained. I have identified the patient, determined the appropriateness of sedation and have assessed the patient immediately prior to the procedure. All medicine(s) and interventions are by my order.
--- NOTE | 2017-11-10 15:14 | Post Sedation Assessment ---
Post Sedation Assessment General Date of Sedation Nov 10, 2017. Vital Signs: Vital Signs Past 12 Hours Date Time Temp Pulse Resp B/P (MAP) Pulse Ox O2 Delivery O2 Flow Rate FiO2 11/10/17 15:04 63 16 129/64 (85) 98 Mask 3 11/10/17 12:00 Room Air 11/10/17 12:00 36.6 59 16 117/58 (77) 97 Room Air 11/10/17 08:00 Room Air 11/10/17 07:31 36.6 76 16 131/74 (93) 95 Room Air 11/10/17 06:40 95 Room Air 11/10/17 04:05 36.8 73 16 142/71 (94) 93 Nasal Cannula 2.0 11/10/17 04:00 95 Nasal Cannula 2.0 Post Procedure Recovery Score Activity: (2) Moves 4 extremities * Respiration: (2) Deep breath/cough Circulation: (2) +/-20% PreAnes Value Consciousness: (2) Fully Awake Oxygen Saturation: (1) O2 needed for >90% Post Anesthesia Score: 9 Discharge Sedation Level of Care: Fast Track Phase II Post Sedation Plan On clinical assessment, the patient appears to have tolerated the sedation without complications. Patient is recovering as anticipated. Patient will continue to be monitored by nursing and may be discharged when sedation discharge criteria are met per below protocol. Upon Completions of procedure and additional 15 minutes continue every 5 minute vital signs and the P.A.R. score; then discharge to a Phase I or Fast Track to Phase II per the following guidelines: * Discharge Patient to appropriate Phase II area if PAR is 8 or greater or return to pre- procedure baseline. The post - procedure orders will be as directed. * If PAR score is less than 8 or not return to pre-procedure baseline then patient will follow Phase I monitoring till PAR is reached for Phase II. The Phase I may be done in procedure room or may call to secure a Phase I area. * If naloxone or flumazenil are used for reversal, hold in Phase I for an additional 60 -120 minutes before discharge to Phase II. Please call the Sedation Physician to re-evaluate and complete post-note for discharge to Phase II area. Do NOT discharge from procedure sedation or Phase 1 until post- sedation evaluation note is complete by procedure /sedation MD Sedation Discharge Instructions to be given to the patient at discharge to home.
--- NOTE | 2017-11-10 15:21 | [facility] Post Operative Brief Note ---
Preliminary Procedure Note Procedure Date Nov 10, 2017. 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 Underwent successful PCI with 1 bare metal stent to proximal LAD. Good angiographic result. Recommendations PCI without planned CABG Specimens None Anesthesia Moderate Procedural Complication(s) None Disposition PCU
[2017-11-10] MEDS ORDERED: SODIUM CHLORIDE 0.9% 1000ML 1,000 ML IV SCH (15:45)
[2017-11-10] MEDS ORDERED: ACETAMINOPHEN 325 MG TAB PO PRN (15:45)
--- NOTE | 2017-11-10 15:45 | Cardiac Catheterization ---
Procedure Note Procedure Date Nov 10, 2017. Pre-Procedure Diagnosis Non STEMI AUC Score 8 Post-Procedure Diagnosis Severe CAD, Successful PCI, Normal Intracardiac Pressures Procedure(s) Performed Coronary Angiography, Left Heart Cath, Bare Metal Stent Needle Maker Mahamed Medical Technician(s) Gama Estimated Blood Loss 15 Medication(s) Fentanyl, Heparin, Nicardipine, Nitroglycerin, Versed, Lidocaine 1% Summary of Findings Indication: NSTEMI, new LV dysfunction with regional wall motion abnormalities Access: 6 FR right radial artery Catheters: [place]; EBU 3.5 guide Findings: LM - mildly calcific, luminal regularities LAD - moderate caliber vessel, mildly calcified, 95% proximal stenosis diffuse mid 50-60% disease distal lumen no irregularities as wraps around apex Circumflex - proximal luminal irregularities, gives off large bifurcating OM1 with 40-50% proximal disease RCA - dominant, large caliber artery with anterior/superior takeoff, 80-90% proximal stenosis, mid segment luminal irregularities 30-40% distal RCA stenosis ; 50-60% mid right PDA stenosis LVEDP - 16 -- PCI -- Antithrombotic therapy: Heparin, clopidogrel Procedure: Left main cannulated with EBU 3.5 guide BMW wire passed across lesion into distal vessel Proximal LAD lesion predilated with 2.5 compliant balloon Dilated lesion stented with 3.5 x 15 mm integrity bare metal stent Stent post-dilated with 3.5 noncompliant balloon IC vasodilators administered for spasm Post procedure TAYE 3 flow, stent well expanded with minimal residual stenosis and no apparent cardiac complications. Arterial Closure: TR band Summary: 1. Severe multi-vessel coronary artery disease - 95% proximal LAD, 50-60% mid diffuse LAD disease - 80-90% proximal RCA - 40-50% proximal large 1st obtuse marginal 2. Borderline elevated intracardiac filling pressure. No significant aortic valve gradient. 3. 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 Underwent successful PCI with 1 bare metal stent to proximal LAD. Good angiographic result. Hemodynamics Rest Ao: 113/47/75 Final Ao: 126/55/87 LV: 116/16 Recommendations PCI without planned CABG Specimens None Radiation Exposure (mGy) 3102 Contrast (mls) 200 Fluids (cc crystalloids) 115 Drains None Anesthesia Moderate Procedural Complication(s) None Disposition PCU ACC Data Cardiac Status Clinical evaluation leading to the procedure CAD Presntation: Non STEMI Anginal Classification: CCS III Heart Failure: No Cardiogenic Shock w/in 24Hrs: No Cardiac Arrest w/in 24Hrs: No Imaging studies past 6 months: Yes Stress studies past 6 months: No Closure Device Percutaneous Entry Location: Radial Closure Device: Radial Band Recommendations: PCI without planned CABG PCI Indication: PCI for high risk Non-STEMI Lesion Segment Name: proximal LAD Culprit Artery: Yes Stenosis Prior to Rx (%): 95 Chronic Total Occlusion: No IVUS: No FFR: No Pre-Procedure TAYE Flow: 3 Previously Treated Lesion: No Lesion Complexity: Non-High/Non-C Lesion Length (mm): 12 Thrombus Present: No Bifurcation Lesion: No Guidewire Across Lesion: Yes Guidewire: Stenosis Post-Procedure (%): 0 Post-Procedure TAYE Flow: 3 Device(s) Deployed: Yes Intraprocedure Events Significant Dissection: No Perforation: No
[2017-11-10] MEDS ORDERED: NURSING VERBAL MED ORDER ONE (18:00)
[2017-11-11 03:48] VITALS: BP 113/64; PULSE 62; TEMP 36.6; O2SAT 97
[2017-11-11 07:13] LABS: HEMATOCRIT 31.9 % (42-52); HEMOGLOBIN 10.2 g/dL (14.0-18.0); MEAN CELL VOLUME 95.5 fL (80-100); MEAN CORPUSCULAR HEMOGLOBIN 30.5 pg (25-34); MEAN PLATELET VOLUME 10.1 fL (7.4-10.4); PLATELET COUNT 132 K/uL (130-400); RED CELL DISTRIBUTION WIDTH CV 15.1 % (11.5-14.5); RED CELL DISTRIBUTION WIDTH SD 52.2 fL (36.4-46.3); WHITE BLOOD COUNT 41.36 K/uL (4.8-10.8)
[2017-11-11 07:31] LABS: CALCIUM 8.7 mg/dl (8.5-10.1); CREATININE 1.72 mg/dl (0.60-1.40); POTASSIUM 3.8 mmol/L (3.5-5.1)
[2017-11-11 07:38] VITALS: BP 112/65; PULSE 50; TEMP 36.5; O2SAT 97
--- NOTE | 2017-11-11 08:04 | Family Medicine Progress Note ---
Progress Note Date of Service Nov 11, 2017. Subjective Pt evaluation today including: conversation w/ patient, physical exam, chart review, lab review Pain: denies any pain PO Intake: tolerating Voiding: no voiding problems This AM denies any cp, sob, dizziness. Reports able to go to the bathroom and not as sob. Constitutional: No fever Respiratory: No shortness of breath, No dyspnea on exertion Cardiovascular: No chest pain Abdomen: No pain, No nausea, No vomiting Male : No dysuria Medications Current Inpatient Medications Medications (Trade) Dose Ordered Sig/Sigifredo Route Start Time Stop Time Status Last Admin Dose Admin Al Hydrox/Mg Hydrox/Simethicone (Maalox Max Susp) 15 ml Q4H PRN PO 11/09/17 22:00 12/09/17 21:59 Magnesium Hydroxide (Milk Of Magnesia Susp) 30 ml Q12H PRN PO 11/09/17 22:00 12/09/17 21:59 Ondansetron HCl (Zofran Inj) 4 mg Q6H PRN IV 11/09/17 22:00 12/09/17 21:59 Nitroglycerin (Nitrostat Tab) 0.4 mg UD PRN SL 11/09/17 22:00 12/09/17 21:59 11/10/17 02:24 0.4 MG Polyethylene (Miralax Powder Packet) 17 gm DAILY PRN PO 11/09/17 22:00 12/09/17 21:59 Atenolol (Tenormin Tab) 25 mg DAILY PO 11/10/17 09:00 12/10/17 08:59 11/10/17 08:42 25 MG Bicalutamide (Casodex Tab) 50 mg DAILY PO 11/10/17 09:00 12/10/17 08:59 Diltiazem HCl (Cardizem Cd Cap) 240 mg Q2D PO 11/10/17 09:00 12/10/17 08:59 11/10/17 08:43 240 MG Hydrochlorothiazide (Hydrochlorothiazide Tab) 12.5 mg Q2D PO 11/10/17 09:00 12/10/17 08:59 11/10/17 08:43 12.5 MG Miscellaneous (Iv Fluids Completed) 1 ea PRN PRN N/A 11/10/17 01:30 4/24/19 01:29 Zolpidem Tartrate (Ambien Tab) 10 mg HS PO 11/10/17 02:30 12/10/17 02:29 11/10/17 22:41 10 MG Atorvastatin Calcium (Lipitor Tab) 80 mg QAM PO 11/10/17 09:00 12/10/17 08:59 Aspirin (Ecotrin Tab) 81 mg QAM PO 11/11/17 09:00 12/10/17 08:59 Pantoprazole Sodium (Protonix Tab) 40 mg QAM PO 11/11/17 09:00 12/10/17 08:59 Clopidogrel Bisulfate (plAVix TAB) 75 mg QAM PO 11/11/17 09:00 12/11/17 08:59 Acetaminophen (Tylenol Tab) 650 mg Q4H PRN PO 11/10/17 15:45 12/10/17 15:44 Lisinopril (Zestril Tab) 2.5 mg QAM PO 11/11/17 09:00 12/11/17 08:59 Objective Vital Signs Date Time Temp Pulse Resp B/P (MAP) Pulse Ox O2 Delivery O2 Flow Rate FiO2 11/11/17 07:38 36.5 50 16 112/65 (81) 97 Room Air 11/11/17 04:00 Room Air 11/11/17 03:48 36.6 62 18 113/64 (80) 97 Room Air 11/11/17 00:00 Room Air 11/10/17 23:28 36.9 63 18 111/66 (81) 94 Room Air 11/10/17 20:05 60 18 99/59 (72) 98 Room Air 11/10/17 20:00 98 Room Air 11/10/17 19:21 36.6 59 18 92/49 (63) 98 Room Air 11/10/17 17:56 36.7 61 19 127/71 (89) 99 Room Air 11/10/17 17:31 71 19 117/70 (86) 96 Room Air 11/10/17 17:16 58 21 126/70 (88) 95 Room Air 11/10/17 17:01 63 24 123/61 (81) 96 Room Air 11/10/17 16:46 58 16 118/64 (82) 96 Room Air 11/10/17 16:31 64 20 121/65 (83) 96 Room Air 11/10/17 16:16 56 18 125/69 (87) 93 Room Air 11/10/17 16:01 57 15 83/68 (73) 95 Room Air 11/10/17 16:00 Room Air 11/10/17 15:47 57 22 130/64 (86) 95 11/10/17 15:35 67 17 128/68 (88) 93 11/10/17 15:19 59 16 119/58 (78) 95 Room Air 11/10/17 15:04 63 16 129/64 (85) 98 Mask 3 11/10/17 12:00 Room Air 11/10/17 12:00 36.6 59 16 117/58 (77) 97 Room Air 11/10/17 08:00 Room Air Physical Exam General Appearance: no apparent distress Eyes: normal inspection Respiratory/Chest: lungs clear, normal breath sounds Cardiovascular: regular rate, rhythm, no murmur Abdomen: normal bowel sounds, non tender, soft Extremities: non-tender (LEs), no pedal edema, + pertinent finding (R radial cath site - no bleeding, or hematoma) Neurologic/Psychiatric: alert, oriented x 3 Skin: warm/dry Laboratory Results 11/11/17 06:36 Red Blood Count 3.34, Mean Corpuscular Volume 95.5, Mean Corpuscular Hemoglobin 30.5, Mean Corpuscular Hemoglobin Concent 32.0, Mean Platelet Volume 10.1 11/11/17 06:36 Test 11/10/17 10:53 11/11/17 06:36 Activated Partial Thromboplast Time 66.4 SECONDS (21.0-31.0) Partial Thromboplastin Ratio 2.6 White Blood Count 41.36 K/uL (4.8-10.8) Red Blood Count 3.34 M/uL (4.7-6.1) Hemoglobin 10.2 g/dL (14.0-18.0) Hematocrit 31.9 % (42-52) Mean Corpuscular Volume 95.5 fL (80-100) Mean Corpuscular Hemoglobin 30.5 pg (25-34) Mean Corpuscular Hemoglobin Concent 32.0 g/dl (32-36) Platelet Count 132 K/uL (130-400) Mean Platelet Volume 10.1 fL (7.4-10.4) RDW Standard Deviation 52.2 fL (36.4-46.3) RDW Coefficient of Variation 15.1 % (11.5-14.5) Anion Gap 6.0 mmol/L (3-11) Est Creatinine Clear Calc Drug Dose 36.5 ml/min Estimated GFR () 41.1 Estimated GFR (Non- 35.5 BUN/Creatinine Ratio 13.6 (10-20) Calcium Level 8.7 mg/dl (8.5-10.1) Magnesium Level 1.7 mg/dl (1.8-2.4) Troponin I 8.670 ng/ml (0-0.045) Assessment and Plan 87 yoM with PMHX of CLL, HTN who p/w chest pain and worsening dyspnea on exertion. Initial troponin negative with subsequent uptrending troponins highest 8.670. Concern for lateral ST depression on EMS strip however no new ischemic changes on EKG. ECHO concerning for EF of 25-30% with akinesis of entire apex. Patient had PCI with proximal LAD stent and evidence of severe multi-vessel CAD. Remains asymptomatic with a few beats of Vtach this AM on telemetry. Severe CAD/Chest pain: resolved s/p nitroglycerine - cxr neg - EKG negative for ischemic changes - elevated troponins to 8.670 - Stress Echo 01/03 negative for ischemia - ECHO 11/10: LV systolic function mod-severely reduced; wall motion abnormalities; LA mod. dilated; mild mitral and aortic regurg; RV systolic pressure elevated 40-50mmHg; grade 1 diastolic dysfunction - Received aspirin 324mg once - Received IV heparin - Started on aspirin 81mg daily - Started on Clopidogrel daily - Started on Lipitor 80mg QAM - Continue Nitro PRN - Consulted Cardiology -PCI with proximal LAD bare metal stent -DAPT for at least a month; ideally for 1 year -proximal RCA PCI outpatient if still symptomatic and tolerating DAPT HTN - continue home HCTZ 12.5 q2d, Atenolol 50 mg daily, Diltiazem 240 mg q 2d GERD - protonix 40mg QAM Leukocytosis - improving - likely combination of stress demargination , CLL-related - Will monitor via CBC CLL -Continue Casodex DVT PPX - Lovenox Code: DNR Resident Physician Supervision Note: I interviewed and examined the patient. Discussed with Dr. Osorio and agree with findings and plan as documented in the note. I also discussed the case with web developer. Monitor telemetry and VS; anticipate discharge tomorrow. Documented By: Gabriele Chavira Resident Involvement: Resident Care Provided Care Provided: Adult Hospital Medicine
[2017-11-11] MEDS ORDERED: MAGNESIUM SULFATE 1GM / D5W 100 ML IV ONE (08:15)
[2017-11-11] MEDS: BICALUTAMIDE 50 MG TAB PO SCH (08:18)
[2017-11-11] MEDS: ATORVASTATIN 40 MG TAB PO SCH (08:19)
[2017-11-11] MEDS: PANTOprazole SOD 40 MG TAB PO SCH (08:19)
[2017-11-11] MEDS: ASPIRIN 81 MG ECTAB PO SCH (08:19)
[2017-11-11] MEDS: LISINOPRIL 2.5 MG TAB PO SCH (08:21)
[2017-11-11] MEDS: CLOPIDOGREL BISULFATE 75 MG TAB PO SCH (10:30)
[2017-11-11 11:28] VITALS: BP 114/62; PULSE 59; TEMP 36.7; O2SAT 93
[2017-11-11 15:49] VITALS: BP 124/70; PULSE 65; TEMP 36.8; O2SAT 92
--- NOTE | 2017-11-11 16:37 | CARDIOLOGY PROGRESS NOTE ---
DATE: 11/11/2017 TIME: 14:47 p.m. SUBJECTIVE: Mr. Eddy was seen earlier this morning at approximately 9:00 a.m. Yesterday, he underwent cardiac catheterization by Dr. Irby, which included PCI of proximal LAD with a 3.5 x 15 mm Integrity bare metal stent postdilated with a 3.5 mm noncompliant balloon. He had residual mid diffuse LAD disease of 50%-60% as well as OM1, 40%-50% proximally and a proximal RCA disease of 80%-90%. Otherwise, the mid distal RCA 30%-40% stenosis and the mid PDA had 50%-60% stenosis. He had presented with angina at rest and was found to have a non-ST elevation myocardial infarction. He denies any further angina. He denies shortness of breath, syncope, near syncope, palpitations or edema. He denies bleeding. At the time of my visit with him earlier today he had not yet ambulated in the hallway. OBJECTIVE: VITAL SIGNS: Temperature was 36.5 degrees, heart rate was 50 beats per minute, respiration rate was 16, blood pressure was 112/65 mmHg, oxygen saturation is 97% on room air. His weight was 87.8 kilogram. GENERAL: No acute distress. He was alert and oriented. NECK: No JVD. CARDIAC EXAM: There was no ventricular heave. Regular, normal S1, S2. There is 1/6 systolic murmur. No rubs or gallops. LUNGS: Clear to auscultation bilaterally without wheezes, rales or rhonchi. ABDOMEN: Soft, nontender, nondistended. Normoactive bowel sounds. EXTREMITIES: No cyanosis or edema. Right radial catheterization site was clean, dry, and intact without erythema or discharge. There was no hematoma. PSYCHIATRIC: Affect appears appropriate. MEDICATIONS: Include aspirin 81 mg daily, atenolol 25 mg daily, Plavix 75 mg daily, atorvastatin 80 mg daily, Casodex 50 mg daily, diltiazem 240 mg, HCTZ 12.5 mg, lisinopril 2.5 mg, Protonix 40 mg daily. Telemetry personally reviewed. No arrhythmia. LABORATORY DATA: White blood cell count was 41.36, hemoglobin 10.2, platelets 132. Sodium 141, potassium 3.8, BUN 23, creatinine 1.72, magnesium 1.7. Troponin was 8.67. Cardiac catheterization results were reviewed as noted above. Echocardiogram 11/06/2013 reported moderately to severely reduced systolic function with an EF of 25%-30%. Type 1 diastolic dysfunction. The apex was reported as akinetic. Mild MR. Mild AI. RVSP 40-50. ASSESSMENT AND PLAN: 1. Non-ST elevation myocardial infarction: He had unstable angina at rest and was found to have non-ST elevation myocardial infarction. He had severe CAD involving the LAD and RCA. The LAD underwent PCI. He feels much better. Continue aspirin 81 mg daily indefinitely, which was discussed with him. Continue Plavix for at least 1 month, but preferably for a year. This was also discussed with him. Continue beta grazyna and high intensity statin therapy. 911 for angina, if does not resolve within 5 minutes nitroglycerin. Would recommend nitroglycerin upon discharge. Recommend cardiac rehabilitation as well. This was discussed with him and he appears to be agreeable. 2. Coronary artery disease: He underwent PCI of his LAD, but he still has residual severe coronary artery disease involving his RCA and otherwise nonobstructive coronary artery disease. If he remains asymptomatic with his RCA stenosis, would advocate for medical therapy. If he becomes symptomatic despite optimizing medical therapy could consider PCI. Continue beta grazyna, high intensity statin therapy. Agree with MARILYN inhibitor. Nitroglycerin on discharge for p.r.n. use. 3. Cardiomyopathy: He has ischemic cardiomyopathy. With his degree of troponin elevation, it is out of proportion to the amount of LV systolic dysfunction. Hopefully, is a stunned myocardium and will improve. We will arrange for outpatient echocardiogram when he follows up in the office. For now, we would recommend replacing atenolol with metoprolol succinate. If he becomes bradycardic, we would recommend decreasing diltiazem in place and titrate up the metoprolol succinate. Agree with MARILYN inhibitor and would recommend titration as appropriate. If LV systolic function improves, he does not have to undergo aggressive titration and this could be followed as an outpatient. He appeared euvolemic this morning. 4. Bradycardia: He does have intermittent bradycardia. If necessary, we would decrease diltiazem while administering a beta grazyna given his ischemic cardiomyopathy. 5. Hypertension: Blood pressure appropriate. If he becomes hypotensive would try to decrease or discontinue diltiazem in favor of the MARILYN inhibitor and beta grazyna given his ischemic heart disease and cardiomyopathy. 6. Disposition: Cardiology will continue to follow. The patient's care has been discussed with Dr. Chavira, the primary hospitalist attending.
[2017-11-11 19:13] VITALS: BP 113/62; PULSE 66; TEMP 37; O2SAT 92
[2017-11-11] MEDS: ZOLPIDEM TARTRATE 10 MG TAB PO SCH (21:59)
[2017-11-11 23:30] VITALS: BP 125/71; PULSE 69; TEMP 37.2; O2SAT 97
[2017-11-12 03:45] VITALS: BP 116/61; PULSE 51; TEMP 36.6; O2SAT 97
--- NOTE | 2017-11-12 07:17 | Clinical Documentation Query ---
CLINICAL DOCUMENTATION QUERY 87 year old male who presents with NSTEMI in setting of severe multivessel CAD. Current documentation includes CKD without staging. Documenting the stage of CKD will improve data integrity and will help clarify vague terms such as "renal insufficiency" or "chronic renal failure." The stages of CKD according to the [employer] are as follows: Stage I: GFR >90 Stage II: GFR 60-89 Stage III: GFR 30-59 Stage IV: GFR 15-29 Stage V: GFR <15 In your clinical opinion is this patient being managed for: ( ) Chronic kidney disease, stage 3 (moderate) ( ) Not Agree ( ) Other explanation of clinical findings (Please Explain. If no explanation given, this would be considered a no response.) ( ) Unable to determine ( ) Need to Discuss (Please call CDS via extension or qliq. If no interaction occurs this is considered a no response.) The medical record reflects the following clinical findings, treatment, and risk factors. Clinical Indicators: GFR 31-35, Creatinine 1.57-1.88. Per Cardiology, "CKD. His creatinine is normally in the range of 1.5-1.6." Treatment: daily PRP monitoring, IVF's, Risk Factors: Age, home NSAID use, Please clarify and document your clinical opinion in the progress notes and discharge summary. Terms such as "probable", "suspected", "likely", "questionable", "possible", or "still to be ruled out" are acceptable. IF IN AGREEMENT, YOU MUST DOCUMENT ABOVE DIAGNOSTIC STATEMENT IN DAILY PROGRESS NOTES AND DISCHARGE SUMMARY. This document is not part of the patient's record. Thank You, Amando Cash, SHELDON [phone] & via qlicCONNECT
--- NOTE | 2017-11-12 07:18 | Clinical Documentation Query ---
CLINICAL DOCUMENTATION QUERY 87 year old male who presents with NSTEMI in setting of severe multivessel CAD. Current documentation includes CKD without staging. Documenting the stage of CKD will improve data integrity and will help clarify vague terms such as "renal insufficiency" or "chronic renal failure." The stages of CKD according to the [employer] are as follows: Stage I: GFR >90 Stage II: GFR 60-89 Stage III: GFR 30-59 Stage IV: GFR 15-29 Stage V: GFR <15 In your clinical opinion is this patient being managed for: (X ) Chronic kidney disease, stage 3 (moderate) ( ) Not Agree ( ) Other explanation of clinical findings (Please Explain. If no explanation given, this would be considered a no response.) ( ) Unable to determine ( ) Need to Discuss (Please call CDS via extension or qliq. If no interaction occurs this is considered a no response.) The medical record reflects the following clinical findings, treatment, and risk factors. Clinical Indicators: GFR 31-35, Creatinine 1.57-1.88. Per Cardiology, "CKD. His creatinine is normally in the range of 1.5-1.6." Treatment: daily PRP monitoring, IVF's, Risk Factors: Age, home NSAID use, Please clarify and document your clinical opinion in the progress notes and discharge summary. Terms such as "probable", "suspected", "likely", "questionable", "possible", or "still to be ruled out" are acceptable. IF IN AGREEMENT, YOU MUST DOCUMENT ABOVE DIAGNOSTIC STATEMENT IN DAILY PROGRESS NOTES AND DISCHARGE SUMMARY. This document is not part of the patient's record. Thank You, Amando Cash RN [phone] & via qlicCONNECT
[2017-11-12 07:30] LABS: HEMOGLOBIN 9.6 g/dL (14.0-18.0); MEAN CELL VOLUME 95.2 fL (80-100); MEAN CORPUSCULAR HEMOGLOBIN 30.5 pg (25-34); PLATELET COUNT 127 K/uL (130-400); WHITE BLOOD COUNT 36.46 K/uL (4.8-10.8)
[2017-11-12 07:48] LABS: CALCIUM 8.3 mg/dl (8.5-10.1); CREATININE 1.81 mg/dl (0.60-1.40); POTASSIUM 3.6 mmol/L (3.5-5.1)
[2017-11-12 07:57] VITALS: BP 114/68; PULSE 74; TEMP 37.1; O2SAT 94
[2017-11-12] MEDS: CLOPIDOGREL BISULFATE 75 MG TAB PO SCH (08:14)
[2017-11-12] MEDS: ATORVASTATIN 40 MG TAB PO SCH (08:14)
[2017-11-12] MEDS: PANTOprazole SOD 40 MG TAB PO SCH (08:14)
[2017-11-12] MEDS: DILTIAZEM HCL 240 MG CAPCR PO SCH (08:15)
[2017-11-12] MEDS: ASPIRIN 81 MG ECTAB PO SCH (08:15)
[2017-11-12] MEDS: HYDROCHLOROTHIAZIDE 25 MG TAB PO SCH (08:15)
[2017-11-12] MEDS: LISINOPRIL 2.5 MG TAB PO SCH (08:16)
[2017-11-12 08:25] LABS: BASO % 0.1 %; BASO ABS # 0.03 K/uL (0-0.2); EOS % 0.4 %; EOS ABS # 0.15 K/uL (0-0.5); IG# 0.05 K/uL (0.00-0.02); LYMPH % 90.8 %; MONO % 1.2 %; MONO ABS # 0.43 K/uL (0.11-0.59); NEUT % 7.4 %
[2017-11-12] MEDS ORDERED: CARVEDILOL 3.125 MG TAB PO SCH (09:00)
--- NOTE | 2017-11-12 09:59 | Cardiology Follow-Up ---
Subjective Date of Service: Nov 12, 2017. Pt evaluation today including: conversation w/ patient, physical exam, chart review, lab review, review of studies, review of inpatient medication list, conversation w/ attending History of Present Illness Mr. Gleason is currently resting comfortably in bed. He reports that he has had no chest discomfort following his cardiac catheterization. He feels that his breathing has improved as well. He did a total of 3 laps around the hallway yesterday with no limiting cardiopulmonary symptoms. He denies any lightheadedness or presyncope. He denies palpitations. He denies any discomfort , bleeding, or hematoma at his cardiac catheterization access site. Social History Smoking Status: Never Smoker History of Alcohol Use: No Objective Vital Signs Past 12 Hours Date Time Temp Pulse Resp B/P (MAP) Pulse Ox O2 Delivery O2 Flow Rate FiO2 11/12/17 07:57 37.1 74 18 114/68 (83) 94 Room Air 11/12/17 04:00 Room Air 11/12/17 03:45 36.6 51 20 116/61 (79) 97 Room Air 11/12/17 00:00 Room Air 11/11/17 23:30 37.2 69 20 125/71 (89) 97 Room Air Last Recorded Weight-Kilograms: 88.000 Physical Exam Constitutional: Alert, oriented, in no acute distress HEENT: Head is atraumatic and normocephalic. EOMs intact. Sclera anicteric. Face is symmetric. No perioral cyanosis. Mucous membranes moist. Neck: Supple, no JVD, no carotid bruits Pulmonary: Normal respiratory effort, clear to auscultation bilaterally Cardiac: Regular rate and rhythm with occasional ectopy, normal S1 and S2, no gallops, no rubs, 1/6 systolic murmur Extremities: No clubbing, cyanosis, or edema. Pulses intact. Right radial access site with no bleeding or hematoma Abdomen: Normal bowel sounds, soft, non-tender, no abdominal mass palpated Skin: Normal skin color, turgor, and pigmentation, no rash, no skin lesions Neurological: Oriented to person, place, and time Data Laboratory Results: Last 24 Hours Test 11/12/17 06:38 White Blood Count 36.46 K/uL Red Blood Count 3.15 M/uL Hemoglobin 9.6 g/dL Hematocrit 30.0 % Mean Corpuscular Volume 95.2 fL Mean Corpuscular Hemoglobin 30.5 pg Mean Corpuscular Hemoglobin Concent 32.0 g/dl Platelet Count 127 K/uL Mean Platelet Volume 10.0 fL Neutrophils (%) (Auto) 7.4 % Lymphocytes (%) (Auto) 90.8 % Monocytes (%) (Auto) 1.2 % Eosinophils (%) (Auto) 0.4 % Basophils (%) (Auto) 0.1 % Neutrophils # (Auto) 2.70 K/uL Lymphocytes # (Auto) 33.10 K/uL Monocytes # (Auto) 0.43 K/uL Eosinophils # (Auto) 0.15 K/uL Basophils # (Auto) 0.03 K/uL RDW Standard Deviation 52.0 fL RDW Coefficient of Variation 15.0 % Immature Granulocyte % (Auto) 0.1 % Immature Granulocyte # (Auto) 0.05 K/uL Smudge Cells PRESENT Ovalocytes 1+ Sodium Level 140 mmol/L Potassium Level 3.6 mmol/L Chloride Level 109 mmol/L Carbon Dioxide Level 28 mmol/L Anion Gap 3.0 mmol/L Blood Urea Nitrogen 28 mg/dl Creatinine 1.81 mg/dl Est Creatinine Clear Calc Drug Dose 34.7 ml/min Estimated GFR () 38.6 Estimated GFR (Non- 33.3 BUN/Creatinine Ratio 15.7 Random Glucose 100 mg/dl Calcium Level 8.3 mg/dl Magnesium Level 2.0 mg/dl Troponin I 4.630 ng/ml Telemetry reviewed: Sinus rhythm with PVCs. Assessment and Plan ASSESSMENT/PLAN: 1. Coronary artery disease status post NSTEMI treated with PCI to LAD: He was found to have severe CAD involving the LAD and RCA. The LAD underwent PCI. He is currently asymptomatic with no anginal symptoms. Will continue to manage his RCA disease conservatively with medical therapy. Continue aspirin 81 mg daily indefinitely. Continue Plavix for at least 1 month, preferably 1 year. Continue beta grazyna, MARILYN inhibitor, and high intensity statin therapy. Recommend sending him home with sl nitro PRN. Recommend cardiac rehab. 2. Cardiomyopathy: He has an ischemic cardiomyopathy. Hopefully, it is a stunned myocardium and systolic function will improve. Will repeat an echocardiogram as an outpatient for reevaluation. Continue carvedilol and lisinopril upon discharge. The medications can be titrated as appropriate in the outpatient setting. He appears euvolemic on examination today. 3. Hypertension: His BP has been well controlled. If he becomes hypotensive, would decrease or discontinue Diltiazem in favor of carvedilol and lisinopril for his ischemic heart disease and cardiomyopathy. 4. Disposition: Patient is stable for discharge from a cardiovascular perspective. He has been scheduled a hospital follow-up appointment in the office on 11/26/17 @ 2:30 pm.
[2017-11-12 11:12] VITALS: BP 116/68; PULSE 74; TEMP 36.7; O2SAT 95
[2017-11-12] MEDS ORDERED: ATOR-26 PO (12:39)
[2017-11-12] MEDS ORDERED: PLV75 PO (12:39)
[2017-11-12] MEDS ORDERED: CRG3125 PO (12:39)
[2017-11-12] MEDS ORDERED: NTRSLP4 SL (12:39)
[2017-11-12] MEDS ORDERED: ASPI-320 PO (12:39)
[2017-11-12] MEDS ORDERED: LSN25 PO (12:39)
--- NOTE | 2017-11-12 13:00 | Discharge Instructions ---
Discharge Instructions Date of Service Nov 12, 2017. Admission Reason for Admission: Chest Pain Discharge Discharge Diagnosis / Problem: NSTEMI with PCI Discharge Goals Goal(s): Decrease discomfort, Diagnostic testing, Therapeutic intervention Activity Recommendations Activity Limitations: resume your previous activity . Instructions / Follow-Up Instructions / Follow-Up Mr. Eddy you were admitted for chest pain and found to have a heart attack. Our cardiologists did a cardiac cath procedure on you to look at the arteries serving blood to your heart. One of the major arteries was 90% blocked and a stent was placed in that artery to keep it open. Because you have a stent now, you need to take aspirin and Plavix to keep the stent open. It is very important that you do not take Plavix and your stomach medication, Omeprazole/ Prilosec at the same time as the Plavix will not work as well otherwise. You were also started on a cholesterol medication called Lipitor to keep your arteries from clotting further. Your blood pressure medications were also changed. Your atenolol was stopped and you were started on Lisinopril and Coreg (carvedilol). Your bone density technician will further adjust your medications as needed. Please follow the instructions below: -Take Omeprazole (Prilosec) before dinner time and Plavix (Clopidogrel) 75mg in the morning (at least 12 hours apart from when you take Prilosec) -Take Aspirin 81mg daily -Stop taking atenolol -Continue Hydrochlorothiazide 12.5mg every other day and Diltiazem 240mg every other day as previously prescribed -Stop taking Atenolol 50mg daily -Start taking Coreg (Carvedilol) 3.125mg twice a day and Lisinopril 2.5mg every morning (once a day) -Start taking Lipitor 80mg daily -Take a Nitroglycerin 0.4mg sublingually if you experience chest pain that lasts for more than a minute; you can take a second pill if the pain does not go away after 5 minutes but if the pain continues to persistent please call 911 -Follow up with cardiology on 11/26/17 at 2:30 at their office -Cardiology will also arrange for another heart ultrasound outpatient and cardiac rehab for you -Follow up with Siria Pizarro physician boiler assistant operator on 11/19/17 at 10:30 -Return to the emergency room/call 911 or see your doctor if you are experience persistent chest pain, shortness of breath, dizziness, nausea or vomiting. Current Hospital Diet Patient's current hospital diet: AHA Diet (Heart Healthy) Discharge Diet Recommended Diet: AHA Diet (Heart Healthy) Pending Studies Studies pending at discharge: no Medical Emergencies . Who to Call and When: Medical Emergencies: If at any time you feel your situation is an emergency, please call 911 immediately. . Non-Emergent Contact Non-Emergency issues call your: Primary Care Provider . . "Provider Documentation" section prepared by Fiona Osorio. .
[2017-11-12 13:38] VITALS: BP 116/68; PULSE 74; TEMP 36.7; O2SAT 95
--- NOTE | 2017-11-12 18:16 | Discharge Summary ---
Discharge Summary Date of Service Nov 12, 2017. Discharge Summary Admission Date: Nov 11, 2017 at 15:25 Discharge Date: Nov 12, 2017 Discharge Disposition: Home Principal Diagnosis: NSTEMI with PCI and Stent placement Problems/Secondary Diagnoses: HTN GERD CLL with leukocytosis Procedures: ECHO * -- Conclusions -- * Left ventricular systolic function is moderate to severely reduced. * Grade I diastolic dysfunction, (abnormal relaxation pattern). * There are regional wall motion abnormalities as specified. * The left atrium is moderately dilated. * Mild aortic regurgitation. * There is mild mitral regurgitation. * Right ventricular systolic pressure is elevated at 40-50mmHg. Procedure Details * A complete two-dimensional transthoracic echocardiogram was performed (2D, M-mode, Doppler and color flow Doppler). Left Ventricle * The left ventricle is normal in size. * There is normal left ventricular wall thickness. * Left ventricular systolic function is moderate to severely reduced. * Ejection Fraction = 25-30%. * Grade I diastolic dysfunction, (abnormal relaxation pattern). * There are regional wall motion abnormalities as specified. * The basal segments appear to contract normally with akinesis of the entire apex Right Ventricle * The right ventricle is normal in size and function. * The right ventricular systolic function is normal as assessed by tricuspid annular plane systolic excursion (TAPSE) (normal >1.5 cm). Atria * The left atrium is moderately dilated. * Right atrial size is normal. Mitral Valve * The mitral valve is grossly normal. * Cannot exclude a small prolapsing segment of the posterior leaflet * There is mild mitral regurgitation. Tricuspid Valve * The tricuspid valve is not well visualized, but is grossly normal. * There is mild tricuspid regurgitation. * Right ventricular systolic pressure is elevated at 40-50mmHg. Aortic Valve * Trileaflet valve with poor mobility of the right coronary cusp * Not adequately assessed * Mild aortic regurgitation. Pulmonic Valve * The pulmonic valve is not well visualized. Pericardium/Pleural * There is no pericardial effusion. CHEST ONE VIEW PORTABLE HISTORY: Atypical CHEST PAIN COMPARISON: Chest 08/13/2014. FINDINGS: The lungs are clear. Cardiac silhouette is normal in size. No pleural effusions. No pneumothorax. IMPRESSION: No acute process. Consultations: Cardiology Medication Reconciliation New Medications: Atorvastatin (Lipitor) 80 Mg Tab 1 TAB PO DAILY for 30 Days, #30 TAB 5 Refills Aspirin (Aspirin EC Low Dose) 81 Mg Ectab 81 MG PO QAM for 30 Days, #30 TAB Carvedilol (Carvedilol) 3.125 Mg Tab 3.125 MG PO BID for 30 Days, #60 TAB Clopidogrel Bisulfate (Clopidogrel) 75 Mg Tab 75 MG PO QAM for 30 Days, #30 TAB Lisinopril (Lisinopril) 2.5 Mg Tab 2.5 MG PO QAM for 30 Days, #30 TAB Nitroglycerin (Nitrostat) 0.4 Mg/1 Tab Subl 0.4 MG SL UD PRN for Chest Pain, #30 TAB Continued Medications: Bicalutamide (Casodex) 50 Mg Tab 50 MG PO DAILY, TAB Calcitriol (Calcitriol) 0.25 Mcg Cap 0.25 MCG PO DAILY Calcium Polycarbophil (Fibercon) 625 Mg Tab 625 MG PO DAILY, CPLT Cranberry (Vaccinium Macrocarp (Cranberry) 500 Mg Cap 500 MG PO DAILY Cyanocobalamin (Cyanocobalamin) Unknown Strength Inj 1 DOSE IM Q2 WEEKS Diltiazem Hcl Coated Beads (Cartia Xt) 240 Mg Cap 240 MG PO Q2D, CAP Hydrochlorothiazide (Hctz) 25 Mg Tab 12.5 MG PO Q2D, TAB Omeprazole (Prilosec) 40 Mg Cap 40 MG PO DAILY, CAP Zolpidem Tartrate (Zolpidem Tartrate) 10 Mg Tab 10 MG PO HS, TAB Discontinued Medications: Atenolol (Tenormin) 50 Mg Tab 25 MG PO DAILY, TAB Discharge Exam Review of Systems: Constitutional: No fever Respiratory: + dyspnea on exertion (improved), No shortness of breath Cardiovascular: No chest pain Abdomen: No pain, No nausea, No vomiting Genitourinary - Female: No dysuria Physical Exam: General Appearance: no apparent distress Eyes: normal inspection Neck: supple Respiratory/Chest: lungs clear, normal breath sounds Cardiovascular: regular rate, rhythm, no murmur Abdomen / GI: normal bowel sounds, non tender, soft Extremities: no calf tenderness, no pedal edema, + pertinent finding (R radial cath site - no hematoma/TTP) Neurologic/Psychiatric: alert, oriented x 3 Skin: warm/dry Hospital Course 87 yoM with PMHX of CLL, HTN who p/w chest pain and worsening dyspnea on exertion. Initial troponin negative with subsequent uptrending troponins highest 8.670 downtrended to 4.6 post PCI/stent. Concern for lateral ST depression on EMS strip however no new ischemic changes on EKG. ECHO concerning for EF of 25-30% with akinesis of entire apex. Patient had PCI with proximal LAD stent and evidence of severe multi-vessel CAD. Remained asymptomatic with a few beats of Vtach post procedure which improved and pt remained in sinus rhythm prior to discharge home. Severe CAD/Chest pain: resolved s/p nitroglycerine - CXR neg - EKG negative for ischemic changes - elevated troponins to 8.670 - downtrended post PCI/stent to 4.6 - Stress Echo 01/03 negative for ischemia - ECHO 11/10: LV systolic function mod-severely reduced; wall motion abnormalities; LA mod. dilated; mild mitral and aortic regurg; RV systolic pressure elevated 40-50mmHg; grade 1 diastolic dysfunction - Received aspirin 324mg once - Received IV heparin - Started on aspirin 81mg daily - Started on Clopidogrel 65mg daily for at least 1 month and ideally for 1 year (given pt on omeprazole instructed to space out Plavix so taking at least 12hrs apart) - Started on Lipitor 80mg QAM - Discharged with Nitroglycerin 0.4mg SL PRN - Consulted Cardiology -PCI with proximal LAD bare metal stent -DAPT for at least a month; ideally for 1 year -proximal RCA PCI outpatient if still symptomatic and tolerating DAPT -Out pt follow up on 11/26 at 2:30 -will arrange for repeat ECHO outpt and cardiac rehab HTN - Continue home HCTZ 12.5 q2d, and Diltiazem 240 mg q 2d - Stopped Atenolol 50 mg daily - Started on Lisinopril 2.5mg QAM - Started on Carvedilol 3.125mg BID to be uptitrated further as indicated per cardiology while decreasing diltiazem dosing GERD - Continued delicia omeprazole 40mg QAM Leukocytosis - improving - likely combination of stress demargination , CLL-related CLL -Continued Casodex DVT PPX: Received Lovenox CKD, Stage 3 - Stable with gentle IVF Resident Physician Supervision Note: I interviewed and examined the patient. Discussed with Dr. Osorio and agree with findings and plan as documented in the note. The patient is without complaints - all medicine and follow up questions were addressed. Documented By: Gabriele Chavira Total Time Spent: Less than 30 minutes This includes examination of the patient, discharge planning, medication reconciliation, and communication with other providers. Discharge Instructions Please refer to the electronic Patient Visit Report (Discharge Instructions) for additional information. Additional Copies To Siria Pizarro
== END 2017-11-12 14:25 | disposition home or self-care (01) | DRG 249 ==
LOC: EDBD 19:02 → C.EDA 19:03 → C.MSICU 22:22 → UNDOADMOB 22:22 → ENRESERV 22:57 → CANRESERV 11-10 16:56 → ENRESERV 11-10 17:35 → C.2T 11-10 17:49 → OBSVTOIN 11-11 15:25
PROVIDERS: ADMIT Internal Medicine; ATTEND Family Medicine
PROC: B211YZZ Fluoroscopy of Multiple Coronary Arteries using Other Contrast (ICD-10-PCS; principal; 2017-11-10 13:29)
PROC: 02703DZ Dilation of Coronary Artery, One Artery with Intraluminal Device, Percutaneous Approach (ICD-10-PCS; principal; 2017-11-10 13:29)
PROC: 4A023N7 Measurement of Cardiac Sampling and Pressure, Left Heart, Percutaneous Approach (ICD-10-PCS; principal; 2017-11-10 13:29)
DX: I21.4 Non-ST elevation (NSTEMI) myocardial infarction (principal); C91.10 Chronic lymphocytic leukemia of B-cell type not having achieved remission; I13.10 Hypertensive heart and chronic kidney disease without heart failure, with stage 1 through stage 4 chronic kidney disease, or unspecified chronic kidney disease; I25.110 Atherosclerotic heart disease of native coronary artery with unstable angina pectoris; I25.5 Ischemic cardiomyopathy; K21.9 Gastro-esophageal reflux disease without esophagitis; N18.3 Chronic kidney disease, stage 3 (moderate); J45.909 Unspecified asthma, uncomplicated; Z51.81 Encounter for therapeutic drug level monitoring; Z79.899 Other long term (current) drug therapy; Z85.46 Personal history of malignant neoplasm of prostate; Z88.0 Allergy status to penicillin; Z88.2 Allergy status to sulfonamides

== ENCOUNTER → 2017-11-26 | Outpatient (CLI) | payer OTHER, MEDICARE ==
[~2017-11-26] MED LIST changes: +ASPI-320 PO; -ATEN50TA8 PO; +ATOR-26 PO; +CALC625T PO; +CRAN500C2 PO; +CRG3125 PO; +CYNI1000 IM; +DILT240C48 PO; -HYDR12.55 PO; +HYDR25TA4 PO; +LSN25 PO; +NTRSLP4 SL; +OMEP40CA41 PO; +PLV75 PO; -PRLSR20 PO; +ZOLP10TA6 PO
[2017-11-26 18:20] LABS: BLOOD UREA NITROGEN 22 mg/dl (7-18); CALCIUM 8.5 mg/dl (8.5-10.1); CARBON DIOXIDE 28 mmol/L (21-32); CREATININE 1.35 mg/dl (0.60-1.40); GLUCOSE 95 mg/dl (70-99); POTASSIUM 3.6 mmol/L (3.5-5.1); SODIUM 141 mmol/L (136-145)
== END | disposition home or self-care (01) ==
LOC: C.LAB1850 15:18
PROVIDERS: ATTEND Physician Assistant
DX: N18.3 Chronic kidney disease, stage 3 (moderate) (principal)

== ENCOUNTER 2018-03-08 12:42 | Inpatient (IN) | payer OTHER, MEDICARE ==
[~2018-03-08] VITALS: Ht 185.4 cm; Wt 85.3 kg
[~2018-03-08 12:42] MED LIST changes: -BICA50TA2 PO; +BICA50TA40 PO
[2018-03-08 13:34] LABS: ISTAT CREATININE 1.3 mg/dl (0.6-1.3); ISTAT IONIZED CALCIUM 1.19 mmol/l (1.12-1.32); ISTAT POTASSIUM 4.5 mEq/L (3.3-5.0)
[2018-03-08 13:35] LABS: HEMATOCRIT 34.9 % (42-52); HEMOGLOBIN 10.9 g/dL (14.0-18.0); MEAN CELL VOLUME 95.4 fL (80-100); MEAN CORPUSCULAR HEMOGLOBIN 29.8 pg (25-34); MEAN CORPUSCULAR HGB CONC 31.2 g/dl (32-36); MEAN PLATELET VOLUME 10.2 fL (7.4-10.4); PLATELET COUNT 122 K/uL (130-400); RED CELL DISTRIBUTION WIDTH CV 15.6 % (11.5-14.5); RED CELL DISTRIBUTION WIDTH SD 54.6 fL (36.4-46.3)
[2018-03-08] MEDS ORDERED: LISI-729 PO (13:38)
[2018-03-08] MEDS ORDERED: MONT1TAB3 PO (13:38)
[2018-03-08 13:39] LABS: INR 1.2 (0.9-1.1); PTT PATIENT 23.6 SECONDS (21.0-31.0)
[2018-03-08 13:56] LABS: ALBUMIN 3.6 gm/dl (3.4-5.0); ALKALINE PHOSPHATASE 138 U/L (45-117); ALT/SGPT 29 U/L (12-78); AST/SGOT 28 U/L (15-37); BLOOD UREA NITROGEN 22 mg/dl (7-18); CALCIUM 9.1 mg/dl (8.5-10.1); CARBON DIOXIDE 27 mmol/L (21-32); CREATININE 1.41 mg/dl (0.60-1.40); GLUCOSE 116 mg/dl (70-99); LIPASE 235 U/L (73-393); POTASSIUM 4.4 mmol/L (3.5-5.1); SODIUM 142 mmol/L (136-145); TOTAL PROTEIN 6.9 gm/dl (6.4-8.2)
--- NOTE | 2018-03-08 13:58 | DIAGNOSTIC IMAGING REPORT ---
ABDOMEN 2VIEW W/PA CHEST RTN CLINICAL HISTORY: 88 years-old Male presenting with vomiting sob. TECHNIQUE: PA view of the chest and supine and upright views of the abdomen were obtained. COMPARISON: 11/09/2017. FINDINGS: Cardiomediastinal silhouette normal. Lungs and pleural spaces clear. Mild stool burden throughout the colon. Nonobstructive bowel gas pattern. No gross pneumoperitoneum. Surgical clips project over the pelvis. Allowing for bowel gas and stool, no calcifications to suggest nephrolithiasis. Splenic arterial calcifications noted. Degenerative changes of the spine and left glenohumeral joint. Total right hip arthroplasty. IMPRESSION: 1. No acute cardiopulmonary disease. 2. No radiographic evidence of acute intra-abdominal pathology. Electronically signed by: Chilo Griffith M.D. 03/08/2018 1:57 PM Dictated Date/Time: 03/08/2018 1:55 PM
[2018-03-08] MEDS ORDERED: METO-217 PO (14:18)
[2018-03-08 14:28] LABS: BASO % 0.1 %; BASO ABS # 0.03 K/uL (0-0.2); EOS % 0.1 %; EOS ABS # 0.04 K/uL (0-0.5); IG# 0.02 K/uL (0.00-0.02); LYMPH % 92.4 %; LYMPH ABS # 30.21 K/uL (1.2-3.4); MONO % 1.1 %; MONO ABS # 0.36 K/uL (0.11-0.59); NEUT % 6.2 %; NEUT ABS # 2.04 K/uL (1.4-6.5)
[2018-03-08] MEDS ORDERED: OPTIRAY 320 IV PRN (14:30)
--- NOTE | 2018-03-08 14:38 | EMERGENCY ROOM VISIT NOTE ---
History Report prepared by Patrick: Marie West Under the Supervision of: Dr. Dilshad Up M.D. First contact with patient: 12:49 Chief Complaint: BLEEDING Stated Complaint: VOMITTING, BLEED FROM BOWELS History of Present Illness The patient is a 88 year old male who presents to the Emergency Room with complaints of an episode of melena that onset yesterday. He notes that his bowel movement was black. The patient notes that he had a fever and threw up 3 days ago and produced a green liquid. The patient complains of vomiting, nausea , belching, and shortness of breath. The patient denies chest pain, abdominal pain, hematuria, blood in his vomit, leg swelling, and coughing. The patient denies recent falls. 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 The patient notes that he had a heart attack, a heart bypass, and a prostatectomy. He states that he take 50 mg of Casodex for prostate cancer treatment. The patient notes that his PCP is Dr. Grajeda and Dr.O' Duron is his oncologist. Source of History: patient Onset: yesterday Position: other (bowels) Timing: other (episode) Associated Symptoms: + SOB, + nausea, + vomiting (green liquid), No cough, No chest pain, No abdominal pain, No urinary symptoms (hematuria) Note: The patient complains of belching. The patient denies leg swelling and blood in his vomit. Review of Systems See HPI for pertinent positives and negatives. A total of ten systems were reviewed and were otherwise negative. Past Medical & Surgical Medical Problems: (1) Asthma (2) Chest pain (3) CHF (congestive heart failure) (4) HTN (hypertension) (5) Prostate carcinoma Surgical Problems: (1) History of appendectomy (2) History of herniorrhaphy Family History Patient reports no known family medical history. Social History Smoking Status: Never Smoker Marital Status: Housing Status: lives with family Occupation Status: retired Current/Historical Medications Scheduled Aspirin (Aspirin EC Low Dose), 81 MG PO QAM Atorvastatin (Lipitor), 1 TAB PO DAILY Bicalutamide (Casodex), 50 MG PO DAILY Calcitriol (Calcitriol), 0.25 MCG PO DAILY Clopidogrel Bisulfate (Clopidogrel), 75 MG PO QAM Cranberry (Vaccinium Macrocarp (Cranberry), 500 MG PO DAILY Lisinopril (Prinivil), 5 MG PO DAILY Metoprolol Succinate (Toprol Xl), 50 MG PO DAILY Montelukast Sodium (Singulair), 10 MG PO DAILY Omeprazole (Prilosec), 40 MG PO DAILY Zolpidem Tartrate (Zolpidem Tartrate), 10 MG PO HS Scheduled PRN Nitroglycerin (Nitrostat), 0.4 MG SL UD PRN for Chest Pain Allergies Coded Allergies: Penicillins (Verified Allergy, Mild, 03/08/18) RASH Dairy (Verified Allergy, Unknown, GI SYMPTOMS, 03/08/18) NO DAIRY PER FAMILY MD. Sulfa Antibiotics (Verified Allergy, Unknown, UNKNOWN, 03/08/18) Physical Exam Vital Signs Date Time Temp Pulse Resp B/P (MAP) Pulse Ox O2 Delivery O2 Flow Rate FiO2 03/08/18 14:58 65 03/08/18 14:37 66 16 157/71 97 Room Air 03/08/18 13:37 92 18 159/72 95 Room Air 03/08/18 12:45 36.7 73 16 145/68 100 Room Air Physical Exam Physical Exam GENERAL: He is oriented to person, place, and time. He appears well-developed and well-nourished. He does not appear distressed. HENT: Exam performed. Head: Normocephalic and atraumatic. Right Ear: External ear normal. No mastoid tenderness. Left Ear: External ear normal. No mastoid tenderness. Mouth/Throat: The oropharynx is clear and moist. No trismus in the jaw. No dental abscesses or uvula swelling. No oropharyngeal exudate or tonsillar abscesses. EYES: Conjunctivae and EOM are normal. Pupils are equal, round, and reactive to light. Right eye exhibits no discharge. Left eye exhibits no discharge. No scleral icterus. NECK: Normal range of motion. Neck supple. No JVD present. No spinous process tenderness present. No carotid bruit present. No rigidity. No tracheal deviation and normal range of motion present. No Brudzinski's sign and no Kernig 's sign noted. CV: Normal rate, regular rhythm, normal heart sounds and intact distal pulses. There is no peripheral edema. Palpable radial pulses bue. PULM/CHEST: Effort normal and breath sounds normal. No respiratory distress. No stridor. He has no wheezes. He has no rales. Chest Wall: He exhibits no tenderness. ABD: The abdomen is soft. Bowel sounds are normal. He has no distension. No mass is present. There is no tenderness. There is no rebound, no guarding, no Bolden's sign and no tenderness at McBurney's point. Rovsig negative. MUSC/SKEL: Normal range of motion. There is no peripheral edema, tenderness or deformity. RECTAL: Hemoccult negative. LYMPH: No cervical adenopathy. NEURO: He is alert and oriented to person, place, and time. He has normal strength. No cranial nerve deficit or sensory deficit. Coordination and gait normal. GCS eye subscore is 4. GCS verbal subscore is 5. GCS motor subscore is 6. Cerebellar tests wnl. SKIN: Skin is warm and dry. He is not diaphoretic. PSYCH: He has a normal mood and affect. Behavior is normal. Judgment and thought content normal. Medical Decision & Procedures ER Provider Diagnostic Interpretation: Radiology results as stated below per my review and radiologist interpretation: ABDOMEN 2VIEW W/PA CHEST RTN CLINICAL HISTORY: 88 years-old Male presenting with vomiting sob. TECHNIQUE: PA view of the chest and supine and upright views of the abdomen were obtained. COMPARISON: 11/09/2017. FINDINGS: Cardiomediastinal silhouette normal. Lungs and pleural spaces clear. Mild stool burden throughout the colon. Nonobstructive bowel gas pattern. No gross pneumoperitoneum. Surgical clips project over the pelvis. Allowing for bowel gas and stool, no calcifications to suggest nephrolithiasis. Splenic arterial calcifications noted. Degenerative changes of the spine and left glenohumeral joint. Total right hip arthroplasty. IMPRESSION: 1. No acute cardiopulmonary disease. 2. No radiographic evidence of acute intra-abdominal pathology. Electronically signed by: Chilo Griffith M.D. 03/08/2018 1:57 PM Dictated Date/Time: 03/08/2018 1:55 PM (CHEST FOR PE) ANGIO WITH CT DOSE: 1460.46 mGycm HISTORY: 88 years-old Male with . Acute shortness of breath TECHNIQUE: Multiple CTA images of the chest were obtained after the intravenous administration of 94 ml Optiray 320. Coronal and sagittal MIPS were obtained from the axial data set and were submitted for review. A dose lowering technique was utilized adhering to the principles of ALARA. COMPARISON: CT abdomen and pelvis of same day, CT chest, abdomen and pelvis 08/13/2014 FINDINGS: CTA: Moderate multichamber cardiac enlargement with small pericardial effusion. Coronary arterial calcifications are noted. Mild dilation of the ascending thoracic aorta, 4.0 x 3.9 cm. Moderate mixed plaquing about the imaged great vessels which are patent without definite high-grade stenosis. The pulmonary arterial tree is opacified to the level of the proximal subsegmental branches and demonstrates no focal filling defects to suggest pulmonary thromboembolic disease. CT CHEST: No dominant thyroid nodule identified. Prominent nonenlarged 9 mm right hilar lymph node. Prominent nonenlarged subcarinal lymph nodes are also present. No pathologically enlarged lymph nodes by CT size criteria. Axillary chain lymph nodes measure up to 9 mm in short axis. Bilateral gynecomastia. Trace right pleural effusion. No pneumothorax. There are 2 pleural-based pulmonary nodules about the lateral basal segment left lower lobe measuring up to 4 mm which are stable dating back to 2014 suggesting benign etiology. Mild dependent subsegmental bibasilar atelectasis. 3 mm pleural-based solid nodule superior segment left lower lobe is also stable. Calcified granuloma of the superior segment left lower lobe. Moderate bilateral bronchial wall thickening. 3 mm pleural-based nodule of the posterior segment right upper lobe is also unchanged. 4 mm solid nodule of the right middle lobe, image 112 series 4 is unchanged. Fissural lymph nodes seen adjacent to the right major fissure. Central airways are patent. Mild intralobular septal thickening. Spleen is enlarged measuring up to 16.5 cm. Cysts about the bilateral kidneys measuring up to 7.2 x 7.6 cm on the right with peripheral thin calcifications. Bones appear intact. No suspicious lytic or blastic bony lesions. There are degenerative changes noted about the spine with multilevel spondylitic spurring and intervertebral disc space narrowing. IMPRESSION: 1. Moderate bilateral bronchial wall thickening with mild dependent subsegmental bibasilar atelectasis and trace right pleural effusion. 2. Cardiomegaly with mild bilateral intralobular septal thickening, possibly reflecting developing pulmonary edema. 3. Scattered bilateral solid pulmonary nodules measuring up to 4 mm appear unchanged dating back to 08/13/2014 suggesting benign etiology. 4. No evidence of pulmonary thromboembolic disease. 5. Splenomegaly. The above report was generated using voice recognition software. It may contain grammatical, syntax or spelling errors. Electronically signed by: Jann Lombardo M.D. 03/08/2018 2:51 PM Dictated Date/Time: 03/08/2018 2:[address] SCAN OF THE ABDOMEN AND PELVIS WITH IV CONTRAST CLINICAL HISTORY: Generalized abdominal pain. COMPARISON STUDY: Abdominal CT dated 09/02/2016. TECHNIQUE: Following the IV administration of 94 cc of Optiray 320, CT scan of the abdomen and pelvis is performed from the lung bases to the proximal femora. Images are reviewed in the axial, sagittal, and coronal planes. IV contrast was administered without complication. A dose lowering technique was utilized adhering to the principles of ALARA. FINDINGS: Lung bases: The heart is enlarged and there is trace pericardial effusion. The coronary arteries are calcified. A 4 mm pleural-based nodule at the left lung base seen on image #98 is unchanged from 09/02/2016. The lung bases are otherwise clear noting dependent atelectasis. There is a tiny hiatal hernia. Liver: The contrast-enhanced liver is normal in size, contour, and attenuation. There is no intrahepatic biliary ductal dilatation. The hepatic veins and portal veins are patent. Gallbladder: Unremarkable. Spleen: The spleen is enlarged, measuring 15.9 cm in length. Pancreas: Unremarkable. Adrenal glands: Unremarkable. Kidneys: The contrast enhanced kidneys are atrophic and without hydronephrosis. The kidneys enhance symmetrically. Numerous bilateral renal cysts measure up to 8 cm. Additional subcentimeter cortical hypodensities also likely represent cysts but are too small for definitive characterization. Abdominal vasculature: There is advanced atherosclerotic calcification mild ectasia of the abdominal aorta. Bowel: There is mild colonic diverticulosis without CT evidence of acute diverticulitis. No bowel obstruction is seen. Mild to moderate colonic fecal retention is observed. The appendix is not identified and reported surgically absent. Peritoneum: There is no intraperitoneal free air. Trace free fluid is noted in the pelvis. Lymphadenopathy: A portacaval node on image #116 measures 12 mm short axis. Mildly enlarged retroperitoneal lymph nodes measure up to 14 mm short axis. Prominent bilateral iliac chain nodes measure up to 12 mm in short axis. Mildly enlarged inguinal lymph nodes measure up to 14 mm short axis. Pelvic viscera: Evaluation of the pelvis is degraded by streak artifact from a right hip arthroplasty. The prostate gland is diminutive versus surgically absent. The bladder wall appears thickened and hyperemic. Mild pericystic stranding is suggested. Fluid is noted along the right inguinal canal. A left-sided varicocele is observed. Skeletal structures: The skeletal structures are osteopenic. There is moderate to advanced lumbosacral spondylosis. No lytic or blastic lesions are seen. There are healed bilateral pubic ring fractures. A right hip arthroplasty is in place. IMPRESSION: 1. The bladder wall appears thickened and hyperemic. Correlate clinically and with urinalysis for evidence of cystitis. This could also be treatment-related if there has been a history of pelvic radiation. 2. The prostate gland is diminutive versus surgically absent. 3. The spleen is enlarged. 4. There are enlarged upper abdominal, retroperitoneal, iliac chain, and inguinal lymph nodes. In conjunction with splenomegaly this raises concern for a lymphoproliferative disorder. Retroperitoneal and iliac chain lymphadenopathy could also be seen in the setting of metastatic disease if there is a history of prostate cancer. Correlation with the patient's clinical findings and oncologic history will be required. 5. Trace free fluid in the pelvis is nonspecific. 6. Additional findings as above. Electronically signed by: Jhonathan Connell M.D. 03/08/2018 2:52 PM Dictated Date/Time: 03/08/2018 2:41 PM Laboratory Results 03/08/18 13:11 Red Blood Count 3.66, Mean Corpuscular Volume 95.4, Mean Corpuscular Hemoglobin 29.8, Mean Corpuscular Hemoglobin Concent 31.2, Mean Platelet Volume 10.2, Neutrophils (%) (Auto) 6.2, Lymphocytes (%) (Auto) 92.4, Monocytes (%) (Auto) 1.1, Eosinophils (%) (Auto) 0.1, Basophils (%) (Auto) 0.1, Neutrophils # (Auto) 2.04, Lymphocytes # (Auto) 30.21, Monocytes # (Auto) 0.36, Eosinophils # (Auto) 0.04, Basophils # (Auto) 0.03 03/08/18 13:11 Test 03/08/18 13:11 03/08/18 13:22 03/08/18 13:40 White Blood Count 32.70 K/uL (4.8-10.8) Red Blood Count 3.66 M/uL (4.7-6.1) Hemoglobin 10.9 g/dL (14.0-18.0) Hematocrit 34.9 % (42-52) Mean Corpuscular Volume 95.4 fL (80-100) Mean Corpuscular Hemoglobin 29.8 pg (25-34) Mean Corpuscular Hemoglobin Concent 31.2 g/dl (32-36) Platelet Count 122 K/uL (130-400) Mean Platelet Volume 10.2 fL (7.4-10.4) Neutrophils (%) (Auto) 6.2 % Lymphocytes (%) (Auto) 92.4 % Monocytes (%) (Auto) 1.1 % Eosinophils (%) (Auto) 0.1 % Basophils (%) (Auto) 0.1 % Neutrophils # (Auto) 2.04 K/uL (1.4-6.5) Lymphocytes # (Auto) 30.21 K/uL (1.2-3.4) Monocytes # (Auto) 0.36 K/uL (0.11-0.59) Eosinophils # (Auto) 0.04 K/uL (0-0.5) Basophils # (Auto) 0.03 K/uL (0-0.2) RDW Standard Deviation 54.6 fL (36.4-46.3) RDW Coefficient of Variation 15.6 % (11.5-14.5) Immature Granulocyte % (Auto) 0.1 % Immature Granulocyte # (Auto) 0.02 K/uL (0.00-0.02) Smudge Cells PRESENT Ovalocytes 1+ Echinocytes 1+ Prothrombin Time 12.1 SECONDS (9.0-12.0) Prothromb Time International Ratio 1.2 (0.9-1.1) Activated Partial Thromboplast Time 23.6 SECONDS (21.0-31.0) Partial Thromboplastin Ratio 0.9 Est Creatinine Clear Calc Drug Dose 42.5 ml/min Estimated GFR () 51.9 Estimated GFR (Non- 44.8 BUN/Creatinine Ratio 15.7 (10-20) Lactic Acid Level 1.6 mmol/L (0.4-2.0) Calcium Level 9.1 mg/dl (8.5-10.1) Total Bilirubin 0.6 mg/dl (0.2-1) Direct Bilirubin 0.2 mg/dl (0-0.2) Aspartate Amino Transf (AST/SGOT) 28 U/L (15-37) Alanine Aminotransferase (ALT/SGPT) 29 U/L (12-78) Alkaline Phosphatase 138 U/L (45-117) Troponin I < 0.015 ng/ml (0-0.045) Pro-B-Type Natriuretic Peptide 6063 pg/ml (0-1800) Total Protein 6.9 gm/dl (6.4-8.2) Albumin 3.6 gm/dl (3.4-5.0) Lipase 235 U/L (73-393) Bedside Hemoglobin 11.2 g/dl (14.0-18.0) Bedside Hematocrit 33 % (42-52) Bedside Sodium 143 mEq/L (135-144) Bedside Potassium 4.5 mEq/L (3.3-5.0) Bedside Chloride 103 mEq/L (101-112) Bedside Total CO2 27 mEq/l (24-31) Anion Gap 19.0 mmol/L (16-25) Bedside Blood Urea Nitrogen 23 mg/dl (7-18) Bedside Creatinine 1.3 mg/dl (0.6-1.3) Bedside Glucose (other) 120 mg/dl (70-99) Bedside Ionized Calcium (Phyllis) 1.19 mmol/l (1.12-1.32) Urine Color YELLOW Urine Appearance CLEAR (CLEAR) Urine pH 7.0 (4.5-7.5) Urine Specific Mart 1.014 (1.000-1.030) Urine Protein NEG (NEG) Urine Glucose (UA) NEG (NEG) Urine Ketones NEG (NEG) Urine Occult Blood NEG (NEG) Urine Nitrite NEG (NEG) Urine Bilirubin NEG (NEG) Urine Urobilinogen NEG (NEG) Urine Leukocyte Esterase NEG (NEG) Laboratory results reviewed by me Medications Administered Medications (Trade) Dose Ordered Sig/Sigifredo Route Start Time Stop Time Status Last Admin Dose Admin Furosemide 40 mg/ Syringe 4 ml @ 4 mls/min ONE ONCE IV 03/08/18 15:45 03/08/18 15:46 DC 03/08/18 16:24 4 MLS/MIN ECG Per My Interpretation Indication: vomiting Rate (beats per minute): 63 Rhythm: sinus rhythm Findings: PVC, other (TR, QURS, and QT intervals within normal limtis. No ST segment elevation or depression. ) ED Course 1254: The patient was evaluated in room C2. A complete history and physical exam was performed. 1430: Ordered Ioversol 100 ml IV. 1545: Vital signs stable. Labs show a leukocytosis of 32.7, this is thought to be chronically elevated due to the patient's CLL. Hemoglobin is stable. Creatinine 1.41. ProBNP 6063. Troponin negative. Acute abdominal series within normal limits. Given the patient reporting abdominal pain and shortness of breath will order advanced imaging. Ordered Furosemide 40 mg/Syringe 4 ml @ 4 mls/min IV. 1738: CTA of the chest negative for PE. Does show some signs of CHF fluid overload. CT of the abdomen shows no acute process but does show possible worsening of the patient's CLL. Spoke with Dr. Jermaine RODRÍGUEZ. She agreed to admit the patient. Medical Decision 1254: The patient was evaluated in room C2. A complete history and physical exam was performed. 1430: Ordered Ioversol 100 ml IV. 1545: Vital signs stable. Labs show a leukocytosis of 32.7, this is thought to be chronically elevated due to the patient's CLL. Hemoglobin is stable. Creatinine 1.41. ProBNP 6063. Troponin negative. Acute abdominal series within normal limits. Given the patient reporting abdominal pain and shortness of breath will order advanced imaging. Ordered Furosemide 40 mg/Syringe 4 ml @ 4 mls/min IV. 1738: CTA of the chest negative for PE. Does show some signs of CHF fluid overload. CT of the abdomen shows no acute process but does show possible worsening of the patient's CLL. Spoke with Dr. Jermaine RODRÍGUEZ. She agreed to admit the patient. Medication Reconcilliation Current Medication List: was personally reviewed by me Blood Pressure Screening Patient's blood pressure: Elevated blood pressure Blood pressure disposition: Referred to PCP (Referred to hospitalist) Consults Time Called: 1729 Consulting Physician: Dr. Jermaine RODRÍGUEZ Returned Call: [phone]: Spoke with Dr. Jermaine RODRÍGUEZ. He agreed to admit the patient. Impression Primary Impression: CHF exacerbation Additional Impression: CLL (chronic lymphocytic leukemia) Scribe Attestation The scribe's documentation has been prepared under my direction and personally reviewed by me in its entirety. I confirm that the note above accurately reflects all work, treatment, procedures, and medical decision making performed by me. The chart was completed utilizing [employer] voice recognition software. Grammatical errors, random word insertions, pronoun errors, and incomplete sentences are an occasional consequence of this system due to software limitations, ambient noise, and hardware issues. Any formal questions or concerns about the content, text, or information contained within the body of this dictation should be directly addressed to the physician for clarification. Departure Information Dispostion Being Evaluated By Hospitalist Referrals No Doctor, Assigned (PCP) Forms HOME CARE DOCUMENTATION FORM, IMPORTANT VISIT INFORMATION Patient Instructions [facility] Problem Qualifiers Primary Impression: CHF exacerbation Heart failure type: unspecified Qualified Codes: I50.9 - Heart failure, unspecified
--- NOTE | 2018-03-08 14:52 | DIAGNOSTIC IMAGING REPORT ---
(CHEST FOR PE) ANGIO WITH CT DOSE: 1460.46 mGycm HISTORY: 88 years-old Male with . Acute shortness of breath TECHNIQUE: Multiple CTA images of the chest were obtained after the intravenous administration of 94 ml Optiray 320. Coronal and sagittal MIPS were obtained from the axial data set and were submitted for review. A dose lowering technique was utilized adhering to the principles of ALARA. COMPARISON: CT abdomen and pelvis of same day, CT chest, abdomen and pelvis 08/13/2014 FINDINGS: CTA: Moderate multichamber cardiac enlargement with small pericardial effusion. Coronary arterial calcifications are noted. Mild dilation of the ascending thoracic aorta, 4.0 x 3.9 cm. Moderate mixed plaquing about the imaged great vessels which are patent without definite high-grade stenosis. The pulmonary arterial tree is opacified to the level of the proximal subsegmental branches and demonstrates no focal filling defects to suggest pulmonary thromboembolic disease. CT CHEST: No dominant thyroid nodule identified. Prominent nonenlarged 9 mm right hilar lymph node. Prominent nonenlarged subcarinal lymph nodes are also present. No pathologically enlarged lymph nodes by CT size criteria. Axillary chain lymph nodes measure up to 9 mm in short axis. Bilateral gynecomastia. Trace right pleural effusion. No pneumothorax. There are 2 pleural-based pulmonary nodules about the lateral basal segment left lower lobe measuring up to 4 mm which are stable dating back to 2014 suggesting benign etiology. Mild dependent subsegmental bibasilar atelectasis. 3 mm pleural-based solid nodule superior segment left lower lobe is also stable. Calcified granuloma of the superior segment left lower lobe. Moderate bilateral bronchial wall thickening. 3 mm pleural-based nodule of the posterior segment right upper lobe is also unchanged. 4 mm solid nodule of the right middle lobe, image 112 series 4 is unchanged. Fissural lymph nodes seen adjacent to the right major fissure. Central airways are patent. Mild intralobular septal thickening. Spleen is enlarged measuring up to 16.5 cm. Cysts about the bilateral kidneys measuring up to 7.2 x 7.6 cm on the right with peripheral thin calcifications. Bones appear intact. No suspicious lytic or blastic bony lesions. There are degenerative changes noted about the spine with multilevel spondylitic spurring and intervertebral disc space narrowing. IMPRESSION: 1. Moderate bilateral bronchial wall thickening with mild dependent subsegmental bibasilar atelectasis and trace right pleural effusion. 2. Cardiomegaly with mild bilateral intralobular septal thickening, possibly reflecting developing pulmonary edema. 3. Scattered bilateral solid pulmonary nodules measuring up to 4 mm appear unchanged dating back to 08/13/2014 suggesting benign etiology. 4. No evidence of pulmonary thromboembolic disease. 5. Splenomegaly. The above report was generated using voice recognition software. It may contain grammatical, syntax or spelling errors. Electronically signed by: Jann Lombardo M.D. 03/08/2018 2:51 PM Dictated Date/Time: 03/08/2018 2:39 PM
--- NOTE | 2018-03-08 14:54 | DIAGNOSTIC IMAGING REPORT ---
CT SCAN OF THE ABDOMEN AND PELVIS WITH IV CONTRAST CLINICAL HISTORY: Generalized abdominal pain. COMPARISON STUDY: Abdominal CT dated 09/02/2016. TECHNIQUE: Following the IV administration of 94 cc of Optiray 320, CT scan of the abdomen and pelvis is performed from the lung bases to the proximal femora. Images are reviewed in the axial, sagittal, and coronal planes. IV contrast was administered without complication. A dose lowering technique was utilized adhering to the principles of ALARA. FINDINGS: Lung bases: The heart is enlarged and there is trace pericardial effusion. The coronary arteries are calcified. A 4 mm pleural-based nodule at the left lung base seen on image #98 is unchanged from 09/02/2016. The lung bases are otherwise clear noting dependent atelectasis. There is a tiny hiatal hernia. Liver: The contrast-enhanced liver is normal in size, contour, and attenuation. There is no intrahepatic biliary ductal dilatation. The hepatic veins and portal veins are patent. Gallbladder: Unremarkable. Spleen: The spleen is enlarged, measuring 15.9 cm in length. Pancreas: Unremarkable. Adrenal glands: Unremarkable. Kidneys: The contrast enhanced kidneys are atrophic and without hydronephrosis. The kidneys enhance symmetrically. Numerous bilateral renal cysts measure up to 8 cm. Additional subcentimeter cortical hypodensities also likely represent cysts but are too small for definitive characterization. Abdominal vasculature: There is advanced atherosclerotic calcification mild ectasia of the abdominal aorta. Bowel: There is mild colonic diverticulosis without CT evidence of acute diverticulitis. No bowel obstruction is seen. Mild to moderate colonic fecal retention is observed. The appendix is not identified and reported surgically absent. Peritoneum: There is no intraperitoneal free air. Trace free fluid is noted in the pelvis. Lymphadenopathy: A portacaval node on image #116 measures 12 mm short axis. Mildly enlarged retroperitoneal lymph nodes measure up to 14 mm short axis. Prominent bilateral iliac chain nodes measure up to 12 mm in short axis. Mildly enlarged inguinal lymph nodes measure up to 14 mm short axis. Pelvic viscera: Evaluation of the pelvis is degraded by streak artifact from a right hip arthroplasty. The prostate gland is diminutive versus surgically absent. The bladder wall appears thickened and hyperemic. Mild pericystic stranding is suggested. Fluid is noted along the right inguinal canal. A left-sided varicocele is observed. Skeletal structures: The skeletal structures are osteopenic. There is moderate to advanced lumbosacral spondylosis. No lytic or blastic lesions are seen. There are healed bilateral pubic ring fractures. A right hip arthroplasty is in place. IMPRESSION: 1. The bladder wall appears thickened and hyperemic. Correlate clinically and with urinalysis for evidence of cystitis. This could also be treatment-related if there has been a history of pelvic radiation. 2. The prostate gland is diminutive versus surgically absent. 3. The spleen is enlarged. 4. There are enlarged upper abdominal, retroperitoneal, iliac chain, and inguinal lymph nodes. In conjunction with splenomegaly this raises concern for a lymphoproliferative disorder. Retroperitoneal and iliac chain lymphadenopathy could also be seen in the setting of metastatic disease if there is a history of prostate cancer. Correlation with the patient's clinical findings and oncologic history will be required. 5. Trace free fluid in the pelvis is nonspecific. 6. Additional findings as above. Electronically signed by: Jhonathan Connell M.D. 03/08/2018 2:52 PM Dictated Date/Time: 03/08/2018 2:41 PM
--- NOTE | 2018-03-08 15:43 | History and Physical ---
History & Physical Date & Time of Service: Mar 08, 2018 at 15:42 Chief Complaint: Vomitting, Bleed From Bowels Primary Care Physician: Dodie Beal CRNP History of Present Illness Source: patient, family 88 y/o M with multiple medical concerns. Pt states he has been having SOB since his IA in October. He was able to go to cardiac rehab x1, but then was so fatigued he could not complete it further. He has SOB with longer walking exertion. Not at short distances or at rest. He stops and this improves. It is not worse than after his IA, but not improving. Pt has hx of asthma, but this does not feel like hx prior asthma exacerbations.He is fatigued easily. He had abd pain since last Thursday that was more lower abd and it comes and goes. He cannot tie it to anything in particular, but does not think it is worse with eating. He did have some green bile emesis on AM, but has been tolerating PO since that time. He generally has a bowel movement every AM after coffee and this was the case on Thursday, however his stool was black and thick "life roof tar". He had a second bowel movement later that day which was the same. He did not have a bowel movement this AM. He has lightheadedness at times moving from sitting to standing and this is not new. He was checked in the ED and while it was noted by the ED physician that his stool was black and tarry, it was also noted to be heme neg. 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 Sister: IA and valve replacement Social History Smoking Status: Never Smoker Alcohol Use: none Drug Use: none Marital Status: Housing status: lives with significant other Occupational Status: retired Allergies Coded Allergies: Penicillins (Verified Allergy, Mild, 03/08/18) RASH Sulfa Antibiotics (Verified Allergy, Unknown, UNKNOWN, 03/08/18) Home Medications Scheduled Aspirin (Aspirin EC Low Dose), 81 MG PO QAM Atorvastatin (Lipitor), 1 TAB PO DAILY Bicalutamide (Casodex), 50 MG PO DAILY Calcitriol (Calcitriol), 0.25 MCG PO DAILY Clopidogrel Bisulfate (Clopidogrel), 75 MG PO QAM Cranberry (Vaccinium Macrocarp (Cranberry), 500 MG PO DAILY Lisinopril (Prinivil), 5 MG PO DAILY Metoprolol Succinate (Toprol Xl), 50 MG PO DAILY Montelukast Sodium (Singulair), 10 MG PO DAILY Omeprazole (Prilosec), 40 MG PO DAILY Zolpidem Tartrate (Zolpidem Tartrate), 10 MG PO HS Scheduled PRN Nitroglycerin (Nitrostat), 0.4 MG SL UD PRN for Chest Pain Review of Systems Pertinent positives and negatives reviewed in HPI--all others negative Physical Exam Vital Signs Date Time Temp Pulse Resp B/P (MAP) Pulse Ox O2 Delivery O2 Flow Rate FiO2 03/08/18 14:58 65 03/08/18 14:37 66 16 157/71 97 Room Air 03/08/18 13:37 92 18 159/72 95 Room Air 03/08/18 12:45 36.7 73 16 145/68 100 Room Air General Appearance: WD/WN, no apparent distress Head: normocephalic, atraumatic Eyes: normal inspection, sclerae normal Respiratory/Chest: normal breath sounds, no respiratory distress Cardiovascular: regular rate, rhythm, no edema Abdomen/GI: non tender, soft Extremities/Musculoskelatal: no calf tenderness, no pedal edema Neurologic/Psych: alert, normal mood/affect, oriented x 3 Skin: normal color, warm/dry Diagnostics Laboratory Results Results Past 24 Hours Test 03/08/18 13:11 03/08/18 13:22 03/08/18 13:40 Range/Units White Blood Count 32.70 4.8-10.8 K/uL Red Blood Count 3.66 4.7-6.1 M/uL Hemoglobin 10.9 14.0-18.0 g/dL Hematocrit 34.9 42-52 % Mean Corpuscular Volume 95.4 80-100 fL Mean Corpuscular Hemoglobin 29.8 25-34 pg Mean Corpuscular Hemoglobin Concent 31.2 32-36 g/dl Platelet Count 122 130-400 K/uL Mean Platelet Volume 10.2 7.4-10.4 fL Neutrophils (%) (Auto) 6.2 % Lymphocytes (%) (Auto) 92.4 % Monocytes (%) (Auto) 1.1 % Eosinophils (%) (Auto) 0.1 % Basophils (%) (Auto) 0.1 % Neutrophils # (Auto) 2.04 1.4-6.5 K/uL Lymphocytes # (Auto) 30.21 1.2-3.4 K/uL Monocytes # (Auto) 0.36 0.11-0.59 K/uL Eosinophils # (Auto) 0.04 0-0.5 K/uL Basophils # (Auto) 0.03 0-0.2 K/uL RDW Standard Deviation 54.6 36.4-46.3 fL RDW Coefficient of Variation 15.6 11.5-14.5 % Immature Granulocyte % (Auto) 0.1 % Immature Granulocyte # (Auto) 0.02 0.00-0.02 K/uL Smudge Cells PRESENT Ovalocytes 1+ Echinocytes 1+ Prothrombin Time 12.1 9.0-12.0 SECONDS Prothromb Time International Ratio 1.2 0.9-1.1 Activated Partial Thromboplast Time 23.6 21.0-31.0 SECONDS Partial Thromboplastin Ratio 0.9 Sodium Level 142 136-145 mmol/L Potassium Level 4.4 3.5-5.1 mmol/L Chloride Level 106 98-107 mmol/L Carbon Dioxide Level 27 21-32 mmol/L Anion Gap 9.0 19.0 16-25 mmol/L Blood Urea Nitrogen 22 7-18 mg/dl Creatinine 1.41 0.60-1.40 mg/dl Est Creatinine Clear Calc Drug Dose 42.5 ml/min Estimated GFR () 51.9 Estimated GFR (Non- 44.8 BUN/Creatinine Ratio 15.7 10-20 Random Glucose 116 70-99 mg/dl Lactic Acid Level 1.6 0.4-2.0 mmol/L Calcium Level 9.1 8.5-10.1 mg/dl Total Bilirubin 0.6 0.2-1 mg/dl Direct Bilirubin 0.2 0-0.2 mg/dl Aspartate Amino Transf (AST/SGOT) 28 15-37 U/L Alanine Aminotransferase (ALT/SGPT) 29 12-78 U/L Alkaline Phosphatase 138 45-117 U/L Troponin I < 0.015 0-0.045 ng/ml Pro-B-Type Natriuretic Peptide 6063 0-1800 pg/ml Total Protein 6.9 6.4-8.2 gm/dl Albumin 3.6 3.4-5.0 gm/dl Lipase 235 73-393 U/L Bedside Hemoglobin 11.2 14.0-18.0 g/dl Bedside Hematocrit 33 42-52 % Bedside Sodium 143 135-144 mEq/L Bedside Potassium 4.5 3.3-5.0 mEq/L Bedside Chloride 103 101-112 mEq/L Bedside Total CO2 27 24-31 mEq/l Bedside Blood Urea Nitrogen 23 7-18 mg/dl Bedside Creatinine 1.3 0.6-1.3 mg/dl Bedside Glucose (other) 120 70-99 mg/dl Bedside Ionized Calcium (Phyllis) 1.19 1.12-1.32 mmol/l Urine Color YELLOW Urine Appearance CLEAR CLEAR Urine pH 7.0 4.5-7.5 Urine Specific [place] 1.014 1.000-1.030 Urine Protein NEG NEG Urine Glucose (UA) NEG NEG Urine Ketones NEG NEG Urine Occult Blood NEG NEG Urine Nitrite NEG NEG Urine Bilirubin NEG NEG Urine Urobilinogen NEG NEG Urine Leukocyte Esterase NEG NEG Microbiology Results 03/08/18 Blood Culture, Received Pending 03/08/18 Blood Culture, Received Pending Diagnostic Radiology C/AXR: neg for acute CT AP: 1. The bladder wall appears thickened and hyperemic. Correlate clinically and with urinalysis for evidence of cystitis. This could also be treatment-related if there has been a history of pelvic radiation. 2. The prostate gland is diminutive versus surgically absent. 3. The spleen is enlarged. 4. There are enlarged upper abdominal, retroperitoneal, iliac chain, and inguinal lymph nodes. In conjunction with splenomegaly this raises concern for a lymphoproliferative disorder. Retroperitoneal and iliac chain lymphadenopathy could also be seen in the setting of metastatic disease if there is a history of prostate cancer. Correlation with the patient's clinical findings and oncologic history will be required. 5. Trace free fluid in the pelvis is nonspecific. 6. Additional findings as above. CTA: trace R pleural effusion Impression Assessment and Plan 88 y/o M who was admitted on 03/08 with AGUILAR and black stools AGUILAR: Trace pleural effusion noted on CTA, neg for PE Pulmonary nodules noted, stable from prior and likely benign Lasix 40mg IV x1 in ED, monitor for response and will leave further dosing to day team Pt is lasix naive ECHO 10/2017 s/p IA with EF 25-30% and RVSP 40-50mmHg, will repeat BNP elevated Trop neg x1 Black stools: heme neg in ED, will repeat Hb is actually slightly better than usual baseline of 9.9-10.3, monitor Protonix BID No association with food, will give liquid diet May need t/c outpt EGD for possible ulcer that was active last week while pt was having abd pain but is now improved and therefore no further sx. Black stools were a few days after pain which would be c/w possible healing ulcer Will continue aspirin/plavix for now given recent stenting and heme neg Abd XR neg for free air, CT AP neg for ulceration CLL: noted to be worse on CT Hem/onc c/s pending Leukocytosis: chronic, likely related to PO chemo agent for prostate cancer No signs of infection Blood cx pending Will hold on abx at this time given likely chronic elevation CKD III: stable, baseline is 1.4-1.8 NSTEMI: aspirin/plavix as above Follows with Dr. Grajeda if needed Abn bladder: noted on CTAP UA neg HTN: stable, continue home meds Prostate ca: continue home meds Asthma: continue singular Other: DNR/DNI at pt request, and daughter present and agree Full liquid diet Asp/plavix, will hold on further rx DVT proph and will use SCDs Resuscitation Status VTE Prophylaxis Will order VTE Prophylaxis: Yes Additional Copies To Dodie Beal CRNP
[2018-03-08] MEDS ORDERED: FUROSEMIDE INJ 40 MG in SYRINGE 0 ML IV ONE (15:45)
[2018-03-08] MEDS ORDERED: ACETAMINOPHEN 325 MG TAB PO PRN (16:45)
[2018-03-08] MEDS ORDERED: NITROGLYCERIN 0.4 MG SL PER TAB CHARGE SL PRN (16:45)
[2018-03-08] MEDS ORDERED: ONDANSETRON INJ 2 MG/ML 2 ML VIAL IV PRN (16:45)
[2018-03-08] MEDS ORDERED: MAGNESIUM HYDROXIDE SUSP 30 ML UDC PO PRN (16:45)
[2018-03-08 17:59] VITALS: BP 178/74; PULSE 62; TEMP 36.7; O2SAT 98; Ht 185.4 cm; Wt 85.3 kg
[2018-03-08 19:39] VITALS: BP_SYST 112; BP_SYST 118; BP_SYST 93; BP_DIAS 58; BP_DIAS 61; BP_DIAS 73; PULSE 59; PULSE 70; PULSE 79; TEMP 36.9; O2SAT 99
[2018-03-08] MEDS: PANTOprazole INJ 40 MG in SYRINGE 0 ML IV SCH (20:37)
[2018-03-08] MEDS ORDERED: ZOLPIDEM TARTRATE 10 MG TAB PO SCH (21:00)
[2018-03-08] MEDS ORDERED: MONTELUKAST SOD 10 MG TAB PO SCH (21:00)
[2018-03-08 23:34] VITALS: BP 138/62; PULSE 53; TEMP 36.7; O2SAT 97
[2018-03-09 04:09] VITALS: BP 124/74; PULSE 64; TEMP 36.6; O2SAT 97
[2018-03-09 06:20] LABS: HEMATOCRIT 30.5 % (42-52); HEMOGLOBIN 9.5 g/dL (14.0-18.0)
[2018-03-09 06:40] VITALS: BP 129/69; PULSE 60; TEMP 36.7; O2SAT 98
[2018-03-09 06:54] LABS: CALCIUM 8.5 mg/dl (8.5-10.1); CREATININE 1.55 mg/dl (0.60-1.40); POTASSIUM 3.9 mmol/L (3.5-5.1)
[2018-03-09] MEDS: PANTOprazole INJ 40 MG in SYRINGE 0 ML IV SCH (07:54)
--- NOTE | 2018-03-09 08:27 | Clinical Documentation Query ---
CORI Levine : CLINICAL DOCUMENTATION QUERY Patient is an 88 year old male admitted for evaluation of "AGUILAR". Patient was treated with IV Lasix, admitted to telemetry. Noted LVEF 10/2017 s/p LA with an LVEF of 25-30% associated with said ischemic cardiomyopathy. BNP elevated. Additional orders included CHF teaching, use of CHF discharge instructions, daily weights, I/O. Admission order states the presenting problem was "CHF". This was not documented within the H&P. As appropriate, consider documentation as suggested below. Thank you. In your clinical opinion is this patient being managed for: ( ) (Possible/Suspected/Likely) Acute on chronic systolic CHF ( x) Not Agree ( ) Other explanation of clinical findings (No explanation is considered a No Response) ( ) Unable to determine ( ) Need to Discuss (Phone CDS or qliq) (No discussion is considered a No Response) The medical record reflects the following clinical findings, treatment, and risk factors. Clinical Indicators: As above Treatment: As above Risk Factors: Age, LA in October 2017, known prior ischemic cardiomyopathy with and LVEF of 25-30%. Please clarify and document your clinical opinion in the progress notes and discharge summary. Terms such as "probable", "suspected", "likely", "questionable", "possible", or "still to be ruled out" are acceptable. IF IN AGREEMENT, YOU MUST DOCUMENT ABOVE DIAGNOSTIC STATEMENT IN DAILY PROGRESS NOTES AND DISCHARGE SUMMARY. This document is not part of the patient's record. Thank You, Jairo Lima, RN [phone]
[2018-03-09] MEDS ORDERED: METOPROLOL SUCC 50MG EXT REL TAB PO SCH (09:00)
[2018-03-09] MEDS ORDERED: LISINOPRIL 5 MG TAB PO SCH (09:00)
[2018-03-09] MEDS ORDERED: CALCITRIOL 0.25 MCG CAP PO SCH (09:00)
[2018-03-09] MEDS ORDERED: BICALUTAMIDE 50 MG TAB PO SCH (09:00)
[2018-03-09] MEDS ORDERED: CLOPIDOGREL BISULFATE 75 MG TAB PO SCH (09:00)
[2018-03-09] MEDS ORDERED: ASPIRIN 81 MG ECTAB PO SCH (09:00)
[2018-03-09] MEDS ORDERED: NON-FORMULARY MEDICATION (Cranberry (Vaccinium Macrocarp (Cranberry) 500 MG) PO SCH (09:00)
[2018-03-09] MEDS ORDERED: ATORVASTATIN 40 MG TAB PO SCH (09:00)
--- NOTE | 2018-03-09 10:28 | HEMATOLOGY CONSULTATION ---
DATE OF CONSULTATION: 03/09/2018 REASON FOR CONSULTATION: Question of worsening lymphoproliferative disease. HISTORY OF PRESENT ILLNESS: Mr. Eddy is a pleasant 88-year-old gentleman who was admitted to [facility] on 03/08/2018 with multiple medical concerns. Apparently, he has been struggling with fatigue and shortness of breath since having myocardial infarction in October. He also describes abdominal pain, which he developed about 3 to 4 days prior to admission. He also reported black tarry stools and underwent fecal occult blood testing, which was negative. Patient is well known to cancer care. Apparently, he is followed by Dr. Papa Mireles with chronic lymphocytic leukemia diagnosed in 10/2012. For the most part, his counts have remained relatively stable with a total white count around 30,000, hemoglobin ranging in the 10 g/dL range, his platelets also were in the low normal range. He has not required any intervention and continues to follow Dr. Mireles regularly. His last visit in our clinic was on 12/08/2017. Other than occasional nightsweat, Mr. Eddy has not demonstrated overt B symptoms, and CT scan of the abdomen and pelvis done on admission reveals retroperitoneal lymphadenopathy, is not impressive. His spleen is also mildly enlarged. Both these findings consistent with active CLL. PAST MEDICAL HISTORY: Significant for chronic lymphocytic leukemia, prostate cancer, non-STEMI, status post stenting in 10/2017, hypertension, asthma, and pulmonary nodules. MEDICATIONS: Prior to admission include aspirin 81 mg p.o. daily, Lipitor 10 mg p.o. daily, Casodex 50 mg p.o. daily, calcitriol 0.25 mcg p.o. daily, clopidogrel 75 mg p.o. daily, cranberry 500 mg p.o. daily, Prinivil 5 mg p.o. daily, metoprolol XL 50 mg p.o. daily, Singulair 10 mg p.o. daily, omeprazole 40 mg p.o. daily, and Ambien 10 mg p.o. at bedtime p.r.n. ALLERGIES: PENICILLIN AND SULFA DRUGS. SOCIAL HISTORY: Patient is retired, , nonsmoker, nondrinker. FAMILY HISTORY: Noncontributory. REVIEW OF SYSTEMS: GENERAL: As per HPI, most notably for fatigue and shortness of breath as well as abdominal pain and change in stools. No fevers or chills. He does have an occasional nightsweat. SKIN: No rashes or lesions. No history of dermatoses. HEENT: Negative for headaches, lightheadedness, or dizziness. No acute visual or hearing deficits. No sign or symptom of sore throat or dysphagia. LYMPHATICS: He suffers from CLL; however, no palpable cervical, supraclavicular, or axillary adenopathy. HEART: Positive history of coronary artery disease, no current angina or palpitations. PULMONARY: Positive history of COPD. He is not short of breath, dyspneic, or orthopneic. No cough or hemoptysis. GASTROINTESTINAL: Again, crampy abdominal pain, experienced nausea, and melena stools prior to admission. GENITOURINARY: Positive history of prostate cancer. No hematuria, dysuria, or urinary incontinence. PSYCHIATRIC: Negative for anxiety, depression, or psychoses. ENDOCRINE: Negative for diabetes, no thyroid disease. NEUROLOGIC: Negative for seizure, stroke, or migraine headache. MUSCULOSKELETAL: No muscle weakness, arthralgias, or myalgias. HEMATOLOGIC: Positive for leukocytosis and normocytic normochromic anemia, borderline thrombocytopenia. PHYSICAL EXAMINATION: GENERAL: Very pleasant 88-year-old gentleman, awake, alert, appropriate, in no acute distress. VITAL SIGNS: Temperature 36.7, pulse 60, respiratory rate 18, blood pressure 129/69. SKIN: Warm, dry, noncyanotic. No petechiae, rash, or ecchymosis. HEENT: Head is atraumatic and normocephalic. Eyes: PERRLA, EOMI. Nares patent, without rhinorrhea or discharge. Throat clear. Tongue midline. Mucous membranes are moist. NECK: Supple, without JVD or thyromegaly. LYMPHATICS: No cervical, supraclavicular, axillary, or inguinal palpable nodes. HEART: Regular rate and rhythm. No clicks, rubs, murmurs, or gallops. LUNGS: Clear to auscultation bilaterally. ABDOMEN: Soft, nontender, nondistended, without palpable hepatosplenomegaly. EXTREMITIES: No calf tenderness or swelling. No clubbing, cyanosis, or edema. MUSCULOSKELETAL: Pulses and strength are equal in all 4 quadrants. NEUROLOGIC: He is awake, alert, and oriented x3. Cranial nerves are intact. RADIOGRAPHIC DATA: CTA of the chest: No evidence of pulmonary embolism. Moderate bilateral bronchial wall thickening with mild dependent subsegmental bibasilar atelectasis and trace right pleural effusion along with cardiomegaly, scattered bilateral solitary pulmonary nodules measuring up to 4 mm, unchanged from comparative study in 2015. CT scan of the abdomen and pelvis again reveals enlarged upper abdominal retroperitoneal iliac chain in inguinal lymph nodes and compared with films from 2017 without describing interval growth. LABORATORY DATA: WBC count 32,700, hemoglobin 10.9, platelet count 122,000. Sodium 141, potassium 3.9, chloride 105, carbon dioxide 31, creatinine 1.55, BUN 22. IMPRESSION/ADMITTING DIAGNOSES: 1. Dyspnea on exertion. 2. Melena stools. 3. Chronic lymphocytic leukemia. 4. History of [id number] myocardial infarction. 5. Chronic kidney disease stage 3. PLAN: I had the pleasure of visiting with Rick at bedside this morning. He was admitted with a multitude of complaints including dyspnea on exertion, abdominal pain, and change in stools. Fecal occult blood testing was done essentially ruling out gastrointestinal bleeding and quite frankly no significant change is seen in his hemoglobin based on Dr. Mireles's clinical notes dated 12/09/2017. There is no evidence CLL has progressed to the point where he requires immediate treatment, and clearly, he has evidence of lymphadenopathy and splenomegaly, which are commonly seen in these folks. Other than occasional nightsweat, he is not exhibiting other B symptoms necessitating intervention. We will advice Dr. Mireles of his admission to hospital, agree with his medical management otherwise, and I have nothing further to add. We will effectively sign off and again ensure Mr. Eddy has appropriate hematologic followup upon discharge.
[2018-03-09 11:18] VITALS: BP 119/66; PULSE 54; TEMP 36.8; O2SAT 98
--- NOTE | 2018-03-09 12:50 | Discharge Instructions ---
Discharge Instructions Date of Service Mar 09, 2018. Admission Reason for Admission: chronic systolic heart failure, abdominal pain, dark stools Discharge Discharge Diagnosis / Problem: chronic systolic heart failure, abdominal pain Discharge Goals Goal(s): Improve function, Improve disease control, Specific goals (follow up with cardiac rehab) Activity Recommendations Activity Limitations: resume your previous activity . Instructions / Follow-Up Instructions / Follow-Up Medications: no changes Chronic systolic heart failure symptoms have been present for a while, appear to be stable lungs clear on exam and on chest x-ray on admission, minimal response to Lasix discussed with Dr. Grajeda, he recommended going to cardiac rehab, follow up in office no changes made to heart medications follow up with [facility] on 03/17 at 4pm can go to cardiac rehab when ready Abdominal pain, dark stools no evidence of blood in stool sample stools turned black due to Pepto Bismol, completely safe, can continue to use as needed in future pain is now resolved Current Hospital Diet Patient's current hospital diet: Full Liquid Diet Discharge Diet Recommended Diet: AHA Diet (Heart Healthy) Pending Studies Studies pending at discharge: no Medical Emergencies . Who to Call and When: Medical Emergencies: If at any time you feel your situation is an emergency, please call 911 immediately. . Non-Emergent Contact Non-Emergency issues call your: Primary Care Provider, Buggy Ladle Tender Call Non-Emergent contact if: you have any medication questions . . "Provider Documentation" section prepared by Dewayne Medina. . [place] Drug Monitoring Program Search Results: no issues identified
[2018-03-09 13:00] VITALS: BP 119/66; PULSE 54; TEMP 36.8; O2SAT 98
--- NOTE | 2018-03-09 14:55 | Discharge Summary ---
Discharge Summary Date of Service Mar 09, 2018. Discharge Summary Admission Date: Mar 08, 2018 at 16:50 Discharge Date: Mar 09, 2018 Discharge Disposition: Home Principal Diagnosis: Dyspnea Problems/Secondary Diagnoses: Chronic systolic heart failure CLL Dark stools due to Pepto Bismol h/o CAD Procedures: none Consultations: Oncology Medication Reconciliation Continued Medications: Aspirin (Aspirin EC Low Dose) 81 Mg Ectab 81 MG PO QAM for 30 Days, #30 TAB Atorvastatin (Lipitor) 80 Mg Tab 1 TAB PO DAILY for 30 Days, #30 TAB 5 Refills Bicalutamide (Casodex) 50 Mg Tab 50 MG PO DAILY, TAB Calcitriol (Calcitriol) 0.25 Mcg Cap 0.25 MCG PO DAILY Clopidogrel Bisulfate (Clopidogrel) 75 Mg Tab 75 MG PO QAM for 30 Days, #30 TAB Cranberry (Vaccinium Macrocarp (Cranberry) 500 Mg Cap 500 MG PO DAILY Lisinopril (Prinivil) 5 Mg Tab 5 MG PO DAILY, TAB Metoprolol Succinate (Toprol Xl) 50 Mg Tabcr 50 MG PO DAILY, #30 TAB Montelukast Sodium (Singulair) 10 Mg Tab 10 MG PO DAILY, TAB Nitroglycerin (Nitrostat) 0.4 Mg/1 Tab Subl 0.4 MG SL UD PRN for Chest Pain, #30 TAB Omeprazole (Prilosec) 40 Mg Cap 40 MG PO DAILY, CAP Zolpidem Tartrate (Zolpidem Tartrate) 10 Mg Tab 10 MG PO HS, TAB Discharge Exam Patient feeling well, dyspnea is the same, still with dyspnea on exertion and orthopnea but not severe. Says he has had shortness of breath for a few months , wants to try to cardiac rehab again. Asked if he responded to the Lasix, said he urinated a little bit more but not much. Asked further about the dark tarry stool, no history of this. Found out that he had some Pepto Bismol for abdominal pain which would explain the stools since he tested heme negative. No abdominal pain, no increased dyspnea all morning. Tolerated lunch well. Appreciate consult from Dr. Walker, CLL is stable, can follow up with Dr. Louise Duron. Discussed with Dr. Grajeda over the phone, he agreed with close follow up with cardiology and referral to cardiac rehab. Review of Systems: Constitutional: No fever, No chills, No sweats, No weight loss, No weakness , No fatigue, No problem reported Eyes: No worsening of vision, No eye pain, No redness, No discharge, No diplopia, No problem reported ENT: No hearing loss, No unusual epistaxis, No nasal symptoms, No sore throat, No tinnitus, No dental problems, No trouble swallowing, No problem reported Respiratory: + dyspnea on exertion (chronic), No cough, No sputum, No wheezing, No shortness of breath, No dyspnea at rest, No hemoptysis, No problem reported Cardiovascular: + orthopnea (chronic), No chest pain, No PND, No edema, No claudication, No palpitations, No problem reported Abdomen: No pain, No nausea, No vomiting, No diarrhea, No constipation, No GI bleeding, No problem reported Musculoskeletal: No joint pain, No muscle pain, No swelling, No calf pain, No problem reported Genitourinary - Male: + urinary incontinence (when standing, chronic issue) , No hematuria, No dysuria, No urinary frequency, No urinary urgency Neurologic: No memory loss, No paralysis, No weakness, No numbness/tingling , No vertigo, No balance problems, No problem reported Psychiatric: No depression symptoms, No anhedonism, No anxiety, No insomnia , No substance abuse, No problem reported Endocrine: No fatigue, No excessive thirst, No excessive urination, No problem reported Hematologic / Lymphatic: No abnormal bleeding/bruising, No clotting problems , No swollen lymph nodes, No night sweats, No problem reported Integumentary: No rash, No itch, No new/changing skin lesions, No color change, No bleeding, No problem reported Physical Exam: General Appearance: WD/WN, no apparent distress Eyes: normal inspection, EOMI, sclerae normal ENT: normal ENT inspection, hearing grossly normal, pharynx normal Neck: supple, no adenopathy, no JVD, trachea midline Respiratory/Chest: chest non-tender, lungs clear, normal breath sounds, no respiratory distress, no accessory muscle use Cardiovascular: regular rate, rhythm, no edema, no gallop, no JVD, no murmur , normal peripheral pulses Abdomen / GI: normal bowel sounds, non tender, soft, no organomegaly Extremities: normal inspection, no calf tenderness, normal capillary refill , no pedal edema, normal range of motion, pelvis stable Neurologic/Psychiatric: family independence case manager II-XII nml as tested, no motor/sensory deficits , alert, normal mood/affect, normal reflexes, oriented x 3 Skin: normal color, warm/dry, no rash Lymphatic: no adenopathy Hospital Course 88 y/o M who was admitted on 03/08 with AGUILAR and black stools AGUILAR, chronic issue for a few months: chronic systolic heart failure, no acute exacerbation Trace pleural effusion noted on CTA, neg for PE Pulmonary nodules noted, stable from prior and likely benign Lasix 40mg IV x1 in ED, no significant response per patient ECHO 10/2017 s/p MA with EF 25-30% and RVSP 40-50mmHg BNP elevated at 6000 but likely his baseline Trop neg x1 will follow up closely with cardiology on 03/17 will follow up with cardiac rehab this week Black stools: heme neg in ED due to Pepto Bismol that he took at home for abdominal pain Hb stable Abd XR neg for free air, CT AP neg for ulceration CLL: noted to be worse on CT? Dr. Walker says that CLL is stable, can follow up with Dr. Mireles Leukocytosis: chronic, due to CLL No signs of infection CKD III: stable, baseline is 1.4-1.8 Cr. is 1.55 today h/o NSTEMI in October: aspirin/plavix as above Follows with Dr. Grajeda Abn bladder: noted on CTAP UA neg HTN: stable, continue home meds Prostate ca: continue home meds Asthma: continue singular Total Time Spent: Greater than 30 minutes This includes examination of the patient, discharge planning, medication reconciliation, and communication with other providers. Discharge Instructions Please refer to the electronic Patient Visit Report (Discharge Instructions) for additional information. Follow-Up Court Blanco PA-C, cardiology, 03/17 at 4pm Additional Copies To Dodie Beal CRNP; Nikolay Grajeda MD
--- NOTE | 2018-03-09 19:56 | ECHOCARDIOGRAM REPORT ---
*NOTICE TO RECEIVING REPUBLICAN AGENCY This information is strictly Confidential and protected under [place] law. [place] law prohibits you from making any further disclosure of this information unless further disclosure is expressly permitted by the written consent of the person to whom it pertains or is authorized by law. A general authorization for the release of medical or other information is not sufficient for this purpose. Hospital accepts no responsibility if the information is made available to any other person, INCLUDING THE PATIENT. Interpretation Summary * Name: DAREN SALGADO Study Date: 03/09/2018 06:52 AM BP: 124/74 mmHg * Patient Location: C.2T\S\E217\S\1 HR: 64 * : 1930 (M/d/yyyy) Gender: Male Height: 73 in * Age: 88 yrs Ethnicity: CA Weight: 194 lb * Ordering Physician: Mica Urena * Referring Physician: Self, Referred * Performed By: Conchita Akins RCS * * Reason For Study: CHF * BSA: 2.1 m2 * -- Conclusions -- * 1. Normal LV size. Mild concentric LVH. * 2. LVEF 50-55% with frequent ectopy. * 3. Normal RV size and function. * 4. Mild mitral regurgitation. * 5. Grade 1 diastolic dysfunction. * 6. Normal estimated PA and RA pressures. * 7. Borderline dilated ascending aorta (4.1 cm). * 8. Compared with prior study on 11/10/2017: LV function and apical wall motion has improved. Procedure Details * A complete two-dimensional transthoracic echocardiogram was performed (2D, M-mode, Doppler and color flow Doppler). Left Ventricle * The left ventricle is grossly normal size. * There is mild concentric left ventricular hypertrophy. * Ejection Fraction = 50-55%. Right Ventricle * The right ventricle is grossly normal size. * The right ventricular systolic function is normal as assessed by tricuspid annular plane systolic excursion (TAPSE) (normal >1.5 cm). Atria * The left atrium is mildly dilated. * Right atrial size is normal. * No ASD detected; PFO is not assessed. Mitral Valve * The mitral valve is grossly normal. * There is no mitral valve stenosis. * There is mild mitral regurgitation. Tricuspid Valve * There is trace tricuspid regurgitation. * Right ventricular systolic pressure is normal. Aortic Valve * The aortic valve opens well. * The aortic valve is trileaflet. * No hemodynamically significant valvular aortic stenosis. Pulmonic Valve * The pulmonic valve is not well seen, but is grossly normal. * There is no pulmonic valvular stenosis. * Mild pulmonic valvular regurgitation. Great Vessels * The aortic root and proximal ascending aorta are normal sized. * Borderline dilated ascending aorta. * Asc Aorta 4.1 cm Pericardium/Pleural * There is no pericardial effusion. Great Vessels * Normal inferior vena cava size and collapsability with sniff indicates a normal right atrial pressure of 3 mmHg Left Ventricular Diastolic Function * Grade I diastolic dysfunction, (abnormal relaxation pattern). MMode 2D Measurements and Calculations IVSd 1.3 cm IVSs 1.4 cm LVIDd 4.8 cm LVIDs 3.6 cm LVPWd 1.2 cm IVS/LVPW 1.1 FS 25.0 % EDV(Teich) 108.0 ml ESV(Teich) 54.6 ml EF(Teich) 49.4 % EDV(cubed) 111.2 ml ESV(cubed) 46.9 ml EF(cubed) 57.8 % % IVS thick 4.9 % LV mass(C)d 232.0 grams LV mass(C)dI 109.2 grams/m\S\2 SV(Teich) 53.4 ml SI(Teich) 25.1 ml/m\S\2 SV(cubed) 64.3 ml SI(cubed) 30.3 ml/m\S\2 Ao root diam 3.8 cm Ao root area 11.5 cm\S\2 ACS 1.7 cm LA dimension 4.5 cm asc Aorta Diam 4.0 cm LA/Ao 1.2 EDV(MOD-sp4) 145.0 ml ESV(MOD-sp4) 87.0 ml EF(MOD-sp4) 40.0 % EDV(MOD-sp2) 130.0 ml ESV(MOD-sp2) 79.0 ml EF(MOD-sp2) 39.2 % SV(MOD-sp4) 58.0 ml SI(MOD-sp4) 27.3 ml/m\S\2 SV(MOD-sp2) 51.0 ml SI(MOD-sp2) 24.0 ml/m\S\2 Doppler Measurements and Calculations MV E max tre 69.0 cm/sec MV A max tre 97.5 cm/sec MV E/A 0.71 MV P1/2t max tre 69.0 cm/sec MV P1/2t 104.4 msec MVA(P1/2t) 2.1 cm\S\2 MV dec slope 193.7 cm/sec\S\2 MV dec time 0.23 sec Ao V2 max 187.7 cm/sec Ao max PG 14.1 mmHg Ao max PG (full) 11.4 mmHg LV V1 max PG 2.7 mmHg LV V1 max 81.4 cm/sec PA V2 max 115.1 cm/sec PA max PG 5.9 mmHg TR max tre 231.7 cm/sec
== END 2018-03-09 13:50 | disposition home or self-care (01) | DRG 292 ==
LOC: C.EDB 12:44 → C.2T 16:50 → ENRESERV 17:21
PROVIDERS: ADMIT Family Medicine; ATTEND Internal Medicine
DX: I13.0 Hypertensive heart and chronic kidney disease with heart failure and stage 1 through stage 4 chronic kidney disease, or unspecified chronic kidney disease (principal); I50.22 Chronic systolic (congestive) heart failure; C91.Z0 Other lymphoid leukemia not having achieved remission; J45.909 Unspecified asthma, uncomplicated; Z85.46 Personal history of malignant neoplasm of prostate; I25.2 Old myocardial infarction; Z92.3 Personal history of irradiation; R91.8 Other nonspecific abnormal finding of lung field; Z88.0 Allergy status to penicillin; Z88.2 Allergy status to sulfonamides; R19.5 Other fecal abnormalities; T47.6X5A Adverse effect of antidiarrheal drugs, initial encounter; Z95.5 Presence of coronary angioplasty implant and graft; N18.3 Chronic kidney disease, stage 3 (moderate)

== ENCOUNTER 2019-06-06 17:54 | Inpatient (IN) ==
[2019-06-06 19:18] LABS: Hematocrit (blood only) 33.7 % (42-52); Hemoglobin 10.6 g/dL (14.0-18.0); INR 1.4 (0.9-1.1); Mean Corpuscular Hemoglobin 31.2 pg (25-34); Mean Corpuscular Hgb Conc 31.5 g/dL (32-36); Mean Corpuscular Volume 99.1 fL (80-100); Mean Platelet Volume 9.7 fL (7.4-10.4); Partial Thromboplastin Time 27.9 Seconds (21.0-31.0); Platelet Count 137 K/uL (130-400); Prothrombin Time 14.1 Seconds (9.0-12.0); RDW Coefficient of Variation 16.3 % (11.5-14.5); RDW Standard Deviation 58.2 fL (36.4-46.3); White Blood Count 57.94 K/uL (4.8-10.8)
[2019-06-06 19:29] LABS: Alanine Aminotransferase 14 U/L (12-78); Albumin Level 3.3 gm/dl (3.4-5.0); Aspartate Aminotransferase 19 U/L (15-37); BUN Creatinine Ratio 12.8 (10-20); Blood Urea Nitrogen 21 mg/dl (7-18); Calcium 8.6 mg/dl (8.5-10.1); Carbon Dioxide 28 mmol/L (21-32); Chloride 108 mmol/L (98-107); Est GFR (African American) 43.3; Est GFR (Non-African American) 37.3; Glucose 114 mg/dl (70-99); Magnesium 1.6 mg/dl (1.8-2.4); Potassium 4.2 mmol/L (3.5-5.1); Sodium 143 mmol/L (136-145)
[2019-06-06 19:34] LABS: Alkaline Phosphatase 170 U/L (45-117); Bilirubin,Total 0.5 mg/dl (0.2-1); Globulin 3.4 gm/dl (2.5-4.0); Total Protein 6.7 gm/dl (6.4-8.2); Troponin I < 0.015 ng/ml (0-0.045)
--- NOTE | 2019-06-06 19:46 | XRay Report ---
XR chest 1V portable CLINICAL HISTORY: 89 years-old Male presenting with Dyspnea. TECHNIQUE: Portable upright AP view of the chest was obtained. COMPARISON: 03/08/2018. FINDINGS: Atherosclerosis of the aortic arch. Cardiac silhouette mildly enlarged. Mild pulmonary vascular promi nence. Moderate right and small left pleural effusions. Right greater than left bibasilar opacities w ith limited basilar lung aeration. No pneumothorax. Advanced degenerative changes of the left glenohu meral joint. Degenerative changes of the thoracic spine. Upper abdomen normal. IMPRESSION: 1. Mild cardiomegaly and mild volume overload. 2. Moderate right and small left pleural effusions with right greater than left basilar atelectasis. 3. No iggy pulmonary edema. Electronically signed by: Chilo Griffith M.D. 06/06/2019 7:44 PM
[2019-06-06] MEDS ORDERED: FUROSEMIDE 40 MG/4 ML VIAL IV STA (20:07)
[2019-06-06] MEDS ORDERED: cephALEXin 250 MG CAP PO ONE (20:18)
[2019-06-06 20:25] LABS: Acanthocytes 1+; Basophils # (auto) 0.08 K/uL (0-0.2); Basophils % (auto) 0.1 %; Eosinophils # (auto) 0.12 K/uL (0-0.5); Eosinophils % (auto) 0.2 %; Immature Granulocytes # (auto) 0.05 K/uL (0.00-0.02); Immature Granulocytes % (auto) 0.1 %; Lymphocytes # (auto) 54.44 K/uL (1.2-3.4); Neutrophils # (auto) 2.65 K/uL (1.4-6.5); Neutrophils % (auto) 4.6 %
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
--- NOTE | 2019-06-06 21:07 | XRay Report ---
XR foot LT min 3V routine CLINICAL HISTORY: 89 years-old Male presenting with L foot trauma, 2nd toe edema/erythema. TECHNIQUE: Frontal, oblique, and lateral views of the left foot were obtained. COMPARISON: None. FINDINGS: Osteopenia. This is evaluation for nondisplaced fracture. No acute fracture or malalignment. Enthesop hyte at the insertion of the Achilles tendon. Mild degenerative changes at the first metatarsophalang eal joint. Mild diffuse soft tissue swelling of the foot. Prominent atherosclerosis. IMPRESSION: Allowing for osteopenia, no acute osseous injury. Electronically signed by: Chilo Griffith M.D. 06/06/2019 9:06 PM
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
[2019-06-06] MEDS ORDERED: Heparin IV Low Dose *NO* Bolus IV ONE (21:33)
[2019-06-06 21:40] LABS: Appearance Urine Clear (Clear); Bilirubin Urine Negative (Negative); Blood Urine Negative (Negative); Color Urine Yellow; Glucose Urine UA Negative (Negative); Ketones Urine Negative (Negative); Leukocyte Esterase Urine Negative (Negative); Nitrite Urine Negative (Negative); Protein Urine Negative (Negative); Specific Gravity Urine <= 1.005 (1.000-1.030); Urobilinogen Urine Negative (Negative)
[2019-06-06] MEDS ORDERED: METOPROLOL TARTRATE 1 MG/ML VIAL IV PRN (21:40)
[2019-06-06] MEDS ORDERED: HEPARIN SODIUM/DEXTROSE 25,000 UNITS/500 ML BAG IV SCH (21:45)
[2019-06-06] MEDS ORDERED: POLYETHYLENE (MIRALAX) 17 GM PACK PO PRN (21:55)
[2019-06-06] MEDS ORDERED: NITROGLYCERIN SL 0.4 MG/TAB TAB SL PRN (21:55)
[2019-06-06] MEDS ORDERED: ACETAMINOPHEN 325 MG TAB PO PRN (21:55)
[2019-06-06] MEDS ORDERED: FUROSEMIDE 40 MG/4 ML VIAL IV SCH (21:55)
[2019-06-06] MEDS ORDERED: PSYLLIUM 58.6% POWDER PACKET PO PRN (22:45)
[2019-06-06] MEDS: MAGNESIUM SULFATE / D5W 1 GM/100 ML BAG IV SCH ×2 (22:49→22:50)
[2019-06-06] MEDS: ZOLPIDEM TARTRATE 10 MG TAB PO SCH (23:48)
[2019-06-06] MEDS: BICALUTAMIDE 50 MG TAB PO SCH (23:49)
[2019-06-06] MEDS: APIXABAN 2.5 MG TAB PO SCH (23:50)
[2019-06-06] MEDS: MONTELUKAST SODIUM 10 MG TABLET PO SCH (23:50)
[2019-06-06] MEDS: FUROSEMIDE 20 MG in SYRINGE 0 ML IV SCH (23:51)
[2019-06-06] MEDS: ATORVASTATIN 40 MG TAB PO SCH (23:52)
[2019-06-06] MEDS: PANTOprazole 40 MG TAB PO SCH (23:52)
--- NOTE | 2019-06-07 00:34 | Billing Data ---
Coding Level of Care Code 90702 Initial Inpt Care Lvl 3
--- NOTE | 2019-06-07 06:58 | XRay Report ---
XR chest 1V portable HISTORY: 89 years-old Male pleural effusion follow-up study in a patient with pleural effusions COMPARISON: Chest radiograph 06/06/2019, CTA chest 03/08/2018 TECHNIQUE: Portable AP view of the chest FINDINGS: Cardiomegaly without overt pulmonary edema. No pneumothorax. Moderate right and small left pleural ef fusions with persistent bibasilar opacities, unchanged. Degenerative changes of the shoulders and spi ne. IMPRESSION: 1. Cardiomegaly without overt pulmonary edema. 2. Right greater than left bilateral pleural effusions with bibasilar opacities appears unchanged fro m comparison. The above report was generated using voice recognition software. It may contain grammatical, syntax o r spelling errors. Electronically signed by: Jann Lombardo M.D. 06/07/2019 6:57 AM
[2019-06-07 07:36] LABS: Hematocrit (blood only) 31.4 % (42-52); Hemoglobin 9.8 g/dL (14.0-18.0); Mean Corpuscular Hemoglobin 30.9 pg (25-34); Mean Corpuscular Hgb Conc 31.2 g/dL (32-36); Mean Corpuscular Volume 99.1 fL (80-100); Mean Platelet Volume 10.4 fL (7.4-10.4); Platelet Count 133 K/uL (130-400); RDW Coefficient of Variation 16.3 % (11.5-14.5); RDW Standard Deviation 58.3 fL (36.4-46.3); Red Blood Count 3.17 M/uL (4.7-6.1); White Blood Count 55.51 K/uL (4.8-10.8)
[2019-06-07] MEDS: LISINOPRIL 5 MG TAB PO SCH (07:43)
[2019-06-07] MEDS: APIXABAN 2.5 MG TAB PO SCH (07:43)
[2019-06-07] MEDS: cephALEXin 500 MG CAP PO SCH ×2 (07:44→21:16)
[2019-06-07] MEDS: METOPROLOL SUCC 25MG EXT REL TAB PO SCH (07:44)
[2019-06-07] MEDS: ASPIRIN 81 MG ECTAB PO SCH (07:44)
[2019-06-07] MEDS: CALCITRIOL 0.25 MCG CAPSULE PO SCH (07:44)
[2019-06-07 07:58] LABS: BUN Creatinine Ratio 12.1 (10-20); Calcium 8.7 mg/dl (8.5-10.1); Creatinine Clr Calc Pharmacy 33.8 ml/min; Est GFR (Non-African American) 34.5; Magnesium 1.8 mg/dl (1.8-2.4); Potassium 3.6 mmol/L (3.5-5.1)
[2019-06-07 08:29] LABS: Acanthocytes 1+; Basophils # (auto) 0.07 K/uL (0-0.2); Basophils % (auto) 0.1 %; Eosinophils # (auto) 0.18 K/uL (0-0.5); Eosinophils % (auto) 0.3 %; Immature Granulocytes # (auto) 0.05 K/uL (0.00-0.02); Immature Granulocytes % (auto) 0.1 %; Lymphocytes # (auto) 52.53 K/uL (1.2-3.4); Lymphocytes % (auto) 94.6 %; Monocytes # (auto) 0.57 K/uL (0.11-0.59); Neutrophils # (auto) 2.11 K/uL (1.4-6.5); Neutrophils % (auto) 3.9 %; Ovalocytes 1+; Smudge Cells Present
[2019-06-07] MEDS ORDERED: METOPROLOL SUCC 50MG EXT REL TAB PO SCH (09:00)
[2019-06-07] MEDS ORDERED: CLOPIDOGREL BISULFATE 75 MG TAB PO SCH (09:00)
--- NOTE | 2019-06-07 09:01 | Hospitalist Progress Note ---
Date of Service June 07, 2019 Assessment & Plan (1) Pulmonary edema: 89-year-old male with history of CLL, multivessel severe CAD, ischemic cardiomyopathy after NSTEMI, HTN, HLD, prostate cancer on Casodex, CKD 3, GERD here for one week of shortness of breath found to have moderate pleural effusion on the right side. Pleural effusions/pulmonary edema Chronic Diastolic CHF - Chest x-ray: Mild cardiomegaly and mild volume overload, moderate right and small left pleural effusion, right greater than left basilar atelectasis. This is a possible cause of his SOB and is for diagnostic and therapeutic thoracentesis tomorrow by Dr. Love per recs of Dr. Walker with Oncology. - Holding Eliquis pre-procedure. EKG: A. fib with PVC rate 100 and QTc 474. Was first diagnosed with AFib one week ago in the PCP office per patient. Have consulted Cardiology and await recs regarding the AFib as a possible source of his SOB. - Pt remains with good O2 saturation on room air, but subjective SOB that worsens with activity. - Given Lasix 20 mg IV x1 in the ED, SOB likely due to sizeable pleural effusion than pulmonary edema, however pt's symptoms are multifactorial. History of severe coronary artery disease, ischemic cardiomyopathy, hypertension, hyperlipidemia, A. fib - Echo February 2018: Mild concentric left ventricle hypertrophy, EF 50 to 55%, mild mitral regurg, grade 1 diastolic dysfunction, borderline dilated ascending aorta 4.1 cm. - Echo today showed EF now at 40-45%. - Cardiac cath March 2018: Severe coronary artery disease 90% proximal LAD ISR overlapping single MARGARET, 60-70% mid VANDANA, 90% proximal RCA, increased intracar diac filling pressures. -Continue home metoprolol, lisinopril, aspirin. Holding Eliquis and Plavix pre- procedure. - Metoprolol 5 mg IV q6h PRN heart rate > 110. Left foot second toe erythema and edema status post trauma: - Concern for infection given continued erythema and tenderness. - X-ray: Osteopenia no fracture, no OM. - Will continue Keflex. CKD 3: - BUN/creatinine 21/1.74, EGFR 33.8 - Creatinine baseline 1.5-1.6. - Continue to monitor BMP the setting of Lasix initiation. CLL - Recently started on ibrutinib -the medication for about 35 days then stopped about 2 weeks ago. - Patient had hematuria and developed lower extremity edema and shortness of breath on medication which is why it was stopped. - Follows with Dr. Mireles. Prostate cancer - History of XRT and Casodex. - Continue Casodex. GERD - Continue home omeprazole and ranitidine. FEN/GI: Heart healthy diet sodium restriction and fluid restriction 1500 cc Code: Full DVT prophylaxis: Eliquis held right now for procedure but will resume after procedure [facility] ([facility]) Coronary artery disease: (3) A-fib: (4) Prostate carcinoma: (5) HTN (hypertension): (6) Ischemic cardiomyopathy: (7) HLD (hyperlipidemia): (8) Toe infection: (9) CLL (chronic lymphocytic leukemia): (10) Pleural effusion: Supervising Physician Co-Signing Physician Notes Resident Physician Supervision Note: I independently interviewed and examined the patient and verified the balderrama history and physical, reviewed labs and image studies, discussed the case with the resident Dr. Gregg and agree with the findings and care plan. Subjective Pt without acute events overnight, still short of breath but no CP, abdominal pain, nausea vomiting diarrhea constipation. Review of Systems Constitutional: no fever and no chills Respiratory: + dyspnea; no cough and no wheezing Gastrointestinal: no abdominal pain, no nausea, no vomiting, no constipation and no diarrhea/loose stools Physical Exam Constitutional: WD/WN, vitals as above Respiratory: normal respiratory effort, lungs clear to auscultation Cardiovascular: HR irregularly irregular, no murmurs. 1+ edema bilateral LE Gastrointestinal (Abdomen): normal bowel sounds, soft, nontender, no hepatosplenomegaly Skin: no rashes, warm and dry L foot 2nd toe edema, warmth and erythema - no skin breakdown noted Psychiatric: A+Ox3, euthymic affect Results & Data Vital Signs (Past 12 Hours) Vital Signs Temp Pulse Resp BP BP Pulse Ox 06/07/19 07:42 36.7 C 85 17 149/75 H 92 06/07/19 04:27 36.7 C 84 18 134/71 93 06/06/19 21:51 36.4 C L 100 H 18 153/92 H 96 Resident Activity Tracking Resident Involvement: Resident Care Provided Care Provided: Adult Hospital Medicine (1) A-fib Atrial fibrillation type: unspecified Qualified Code(s): I48.91 - Unspecified atrial fibrillation
--- NOTE | 2019-06-07 09:18 | Consultation Report ---
DATE OF CONSULTATION: 06/07/2019 REASON FOR CONSULTATION: An 89-year-old gentleman with bilateral pleural effusions, currently under Dr. Mireles's care for chronic lymphocytic leukemia. HISTORY OF PRESENT ILLNESS: Mr. Eddy is a pleasant 89-year-old gentleman well known to [facility], currently under Dr. Mireles's care for chronic lymphocytic leukemia, recently started on ibrutinib orally. He had presented to the hospital yesterday with subacute onset shortness of breath, specifically dyspnea on exertion. He estimates he has been symptomatic for 1 week. I questioned him about his prior visit with Dr. Mireles on 05/18/2019 where he relates he informed Dr. Mireles of his breathing issues; however, I see no proof of that on the progress note. Nonetheless, Dr. Mireles's clinical note indicates that Mr. Eddy was started on ibrutinib on 04/18/2019. 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 In March of 2019, his absolute lymphocyte increased to around 87K and was becoming increasingly anemic. Thus, the indication utilized to start ibrutinib. From a symptomatic standpoint, Mr. Eddy has felt well. He does relate weight loss while admitting to utilizing his 's diuretics (Lasix) x2. He chronically suffers from pedal edema. Upon presentation to [facility], a chest x-ray revealed right greater than left bilateral pleural effusion, which interestingly has not progressed as compared to CTA of the chest which was done back in February. Thus, the argument of possible ibrutinib effect is somewhat dubious. To my knowledge, this gentleman has not undergone thoracentesis to analyze the fluid. He has significant cardiac history and conceivably the fluid in question is transudative. The patient offers no further complaints. PAST MEDICAL HISTORY: Significant for asthma, coronary artery disease, CHF, chronic renal failure, CLL, history of colorectal cancer, hypertension, bladder cancer, prostate cancer. PAST SURGICAL HISTORY: Includes total right hip arthroplasty, appendectomy and herniorrhaphy. MEDICATIONS: Prior to admission include aspirin 81 mg p.o. daily, atorvastatin 40 mg p.o. b.i.d., Casodex 50 mg p.o. daily, clopidogrel 75 mg p.o. daily, cranberry 500 mg p.o. daily, Singulair 10 mg p.o. daily, nitroglycerin 0.4 mg sublingual p.r.n., omeprazole 40 mg p.o. daily, lisinopril 5 mg p.o. daily, psyllium husk 3.5 g p.o. daily p.r.n., ranitidine 300 mg p.o. daily p.r.n., Ambien 10 mg p.o. at bedtime, ranitidine 300 mg p.o. at bedtime, Eliquis 2.5 mg p.o. b.i.d., cyanocobalamin 1000 mcg subQ monthly, metoprolol 25 mg p.o. daily. ALLERGIES: PENICILLINS, MILK AND SULFA. SOCIAL HISTORY: The patient is retired and lives with his spouse. Negative for cigarettes, alcohol or substances. FAMILY HISTORY: Noncontributory. REVIEW OF SYSTEMS: Mainly for shortness of breath, dyspnea and rapid weight loss attributable to self-induced diuresis. Negative for fevers or chills. SKIN: No rashes or lesions. No history of dermatoses. HEENT: Negative for headaches, lightheadedness or dizziness. No dysphagia or sore throat. No sinus symptoms. LYMPH: Carries a diagnosis of chronic lymphocytic leukemia manifested by lymphocytosis. CARDIAC: Positive history of coronary artery disease. No current angina or palpitations. PULMONARY: Positive for shortness of breath and dyspnea on exertion. Positive for chronic bilateral pleural effusions. GASTROINTESTINAL: Negative for abdominal pain, nausea, vomiting, diarrhea or constipation, hematochezia or melena stools. GENITOURINARY: Positive history of prostate cancer. He denies any current hematuria or dysuria. MUSCULOSKELETAL: No arthralgias or myalgias. No overt muscle weakness. PSYCHIATRIC: Negative for anxiety, depression or psychoses. ENDOCRINE: Negative for diabetes or thyroid disease. NEUROLOGIC: Negative for seizure, stroke, or migraine headache. HEMATOLOGIC: Positive for leukocytosis (lymphocytosis) and normocytic normochromic anemia. PHYSICAL EXAMINATION: GENERAL: A very pleasant 89-year-old, awake, alert and appropriate, in no acute distress. VITAL SIGNS: Temperature 36.7, pulse 85, respiratory rate 17, blood pressure 149/75. SKIN: Warm, dry, noncyanotic without petechia, rash or ecchymosis. HEENT: Atraumatic, normocephalic. Eyes: PERRLA, EOMI. Nares patent without rhinorrhea or discharge. Throat clear. Tongue midline. Mucous membranes are moist. No buccal lesions or ulcerations. NECK: Supple without evidence of JVD or thyromegaly. LYMPHATICS: No cervical or supraclavicular palpable nodes. HEART: Regular rate and rhythm. No clicks, rubs, murmurs, gallops. LUNGS: Blunted breath sounds bilaterally. ABDOMEN: Soft, nontender, nondistended, without palpable hepatosplenomegaly. EXTREMITIES: No calf tenderness. Has some mild pedal edema, but no overt peripheral edema noted. MUSCULOSKELETAL: Strength and pulses are equal otherwise in all 4 quadrants. NEUROLOGICALLY: He is awake, alert and oriented x3. Cranial nerves grossly intact. LABORATORY DATA: WBC count 55,510; hemoglobin 9.8, platelet count 133,000 with an absolute lymphocyte count 52,530. His PT is mildly elevated at 14.1 seconds. Sodium 143, potassium 3.6, chloride 108, carbon dioxide 29, creatinine 1.74. RADIOGRAPHIC DATA: Chest x-ray done on admission shows cardiomegaly without overt pulmonary edema, right greater than left, bilateral pleural effusions with bibasilar opacities appears unchanged from comparison, had comparison was from an February film. IMPRESSION: 1. Bilateral pleural effusion. 2. Shortness of breath and dyspnea on exertion attributable to #1. 3. Exacerbation of congestive heart failure. 4. Chronic lymphocytic leukemia. PLAN: I had the pleasure of visiting with Mr. Eddy at bedside this morning. He has been symptomatic for approximately a week, but I suspect he may have been symptomatic longer. He admittedly self-medicated utilizing his 's diuretics, hence losing several pounds in the process. From a radiographic standpoint, the pleural effusions in question are virtually unchanged. This gentleman was started on ibrutinib in the end of March and thus I do not believe the connection between the initiation of ibrutinib and pleural effusion is compelling. I would maintain his current therapy. He is scheduled to see Dr. Mireles this coming . His WBCs seem to be heading back towards normal. Clearly, if Mr. Eddy undergoes thoracentesis, the fluid could be differentiated as a transudate (most likely) or an exudate and I would potentially add the flow cytometry to rule out expansion of his lymphoproliferative disease, which I doubt. I have nothing further to add at this point if there is any specific questions I would direct them to Dr. Mireles. Thank you very much for allowing me to participate in his care. MARCELO
[2019-06-07] MEDS: FUROSEMIDE 20 MG in SYRINGE 0 ML IV SCH ×2 (09:29→17:09)
[2019-06-07] MEDS: POTASSIUM CHLORIDE 20 MEQ TABCR PO SCH ×2 (09:30→21:16)
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
--- NOTE | 2019-06-07 16:30 | Consultation Report ---
DATE OF CONSULTATION: 06/07/2019 SURGICAL CONSULTATION REASON FOR CONSULTATION: Pleural effusions. HISTORY OF PRESENT ILLNESS: This is an 89-year-old male who has an underlying history of numerous medical problems including coronary artery disease, hyperlipidemia and chronic lymphocytic leukemia. He presented to the hospital on 06/06, at which time he was admitted. The patient relates approximately 1 week of shortness of breath. He says the shortness of breath is unusual for him and is primarily with exertion. He says that simple activities such as ambulating to the restroom on a flat surface cause him to have some dyspnea on exertion, which is unusual for him. He says he is not short of breath at rest and he does not report any conversational dyspnea. He also denies orthopnea. I questioned the patient on numerous other symptoms. He has not had any fevers, shakes or chills. He also denies any cough. He denies any falls or head injuries. He denies any visual changes, tinnitus, vertigo or sore throat. He has not noted any hemoptysis. He has dyspnea on exertion as noted above, but denies chest pain. He denies abdominal pain, nausea, vomiting or diarrhea. He denies bright red blood per rectum or melenic stools. The patient says that he was taking ibrutinib for his CLL and this medication was initiated a little over a month ago, but he developed hematuria, so his oncologist stopped this approximately 2 weeks ago. The patient does not report any history of DVT or PE. He denies anxiety or depression. At the time of my exam, he is resting comfortably in bed, was able to maintain a normal conversation without getting overtly dyspneic. The patient has had numerous diagnostic studies including imaging, which consisted of a chest x-ray on the date of admission and again today. His chest x-ray did reveal the patient had some cardiomegaly, no pulmonary edema was noted and he had bilateral pleural effusions with the right side showing more fluid than the left. The patient has had an echocardiogram today, and this demonstrated a 40%-45% ejection fraction with mild global hypokinesis of the left ventricle. There is mild aortic stenosis noted and there is moderate mitral regurgitation noted. Labs that the patient had drawn on this admission revealed a white blood cell count most recently today of 55,000, which appears to be near his baseline. His hemoglobin and hematocrit are 9.8 and 31.4, his platelet count is within the normal range. He has had coagulation studies this admission when INR is noted to be 1.4. Chemistry profile showed sodium and potassium are within normal range. His BUN is elevated at 21 and his creatinine is elevated at 1.7; however, this appears to be close to baseline as well. PAST MEDICAL HISTORY: Includes the followin. CLL, managed by Dr. Mireles. 2. Coronary artery disease. 3. Atrial fibrillation. 4. History of prostate cancer. 5. Hypertension. 6. Ischemic cardiomyopathy. 7. Hypertension. 8. Hyperlipidemia. 9. GERD. 10. History of bladder cancer. 11. History of colon cancer. PAST SURGICAL HISTORY: Includes: 1. Right hip arthroplasty. 2. Appendectomy. 3. Herniorrhaphy. FAMILY HISTORY: He does not note premature history of coronary artery disease. SOCIAL HISTORY: He is a lifetime nonsmoker. ALLERGIES: HE HAS LISTED ALLERGIES TO PENICILLIN, MILK AND SULFA. CURRENT MEDICATIONS: Include the followin. Lasix 20 mg IV twice daily. 2. Aspirin 81 mg daily. 3. Lipitor 80 mg daily. 4. Casodex 50 mg daily. 5. Calcitriol 0.25 mcg daily. 6. Plavix 75 mg daily. 7. Lisinopril 5 mg daily. 8. Singulair 10 mg daily. 9. Protonix 40 mg daily. 10. Keflex 500 mg every 12 hours. 11. Eliquis 2.5 mg twice daily. It appears the patient did receive a dose this morning. This has now been placed on hold. 12. Metoprolol 25 mg daily. 13. Ambien 10 mg at bedtime as needed for sleep. 14. Potassium chloride 20 mEq twice daily. REVIEW OF SYSTEMS: As noted above. PHYSICAL EXAMINATION: VITAL SIGNS: The patient's blood pressure is 145/75, pulse is 82 and irregular, respirations are 17 and they are nonlabored. He is afebrile. Temperature 36.6, pulse ox 95% on room air. GENERAL: He is alert and oriented x3, in no distress. HEENT: Head is atraumatic, normocephalic. Eyes: Pupils equal, round, and react to light and accommodation. Extraocular motions are intact. Ears: Auditory acuity is grossly intact. Nose: Nasal patency was intact. Sinuses are nontender. Mouth is moist without exudates. NECK: Supple. There is no JVD, trachea is midline. CARDIOVASCULAR: Revealed irregular rate and rhythm. LUNGS: Revealed breath sounds were decreased at the bases with the right side being more decreased than the left. He is not using accessory muscles to aid in respiration. ABDOMEN: Soft and nontender. EXTREMITIES: Revealed no cyanosis. NEUROLOGIC: Revealed cranial nerves II-XII grossly intact. He could follow simple commands and move all 4 extremities without noted focal deficits. IMPRESSION: An 89-year-old male with bilateral pleural effusions. PLAN: I discussed with the patient. We will come back to his bedside tomorrow with a bedside ultrasound machine, ultrasound both pleural cavities and then determine if there is a suitable fluid pocket and we will likely perform a bedside thoracentesis. We opted not to perform this procedure today as the patient received Eliquis this morning and would like to have him off this for 24 hours to minimize the risk of bleeding. I discussed with him that the procedure would be 2-folds, #1, improving his breathing and #2, fluid could be sent for appropriate analysis to determine the cause. I did explain the risks and benefits of this procedure, which include but are not limited to bleeding, infection and pneumothorax. Benefits include improvement in breathing and obtaining a diagnosis. He is interested in proceeding tomorrow. We will see him again tomorrow morning with further recommendations to follow. MARCELO
[2019-06-07] MEDS: ZOLPIDEM TARTRATE 10 MG TAB PO SCH (21:14)
[2019-06-07] MEDS: ATORVASTATIN 40 MG TAB PO SCH (21:15)
[2019-06-07] MEDS: PANTOprazole 40 MG TAB PO SCH (21:15)
[2019-06-07] MEDS: BICALUTAMIDE 50 MG TAB PO SCH (21:16)
[2019-06-07] MEDS: MONTELUKAST SODIUM 10 MG TABLET PO SCH (21:16)
--- NOTE | 2019-06-08 08:16 | XRay Report ---
SINGLE VIEW CHEST CLINICAL HISTORY: Status post thoracentesis. FINDINGS: An AP, portable, upright chest radiograph is compared to study dated 06/07/2019 and correla idania with chest CT dated 03/08/2018. The heart is enlarged noting atherosclerotic calcification of the thoracic aorta. The pulmonary vasculature is noncongested. There are layering left larger than right pleural effusions with bibasilar consolidation. No pneumothorax is seen. The skeletal structures are osteopenic. The bony thorax is grossly intact. IMPRESSION: 1. No pneumothorax is identified post procedure. 2. Cardiomegaly without radiographic evidence of congestive failure. 3. There are left larger than right pleural effusions with associated consolidation. Electronically signed by: Jhonathan Connell M.D. 06/08/2019 8:15 AM
[2019-06-08 08:27] LABS: Hematocrit (blood only) 33.5 % (42-52); Hemoglobin 10.5 g/dL (14.0-18.0); Mean Corpuscular Hemoglobin 31.3 pg (25-34); Mean Corpuscular Hgb Conc 31.3 g/dL (32-36); Mean Platelet Volume 10.2 fL (7.4-10.4); Platelet Count 145 K/uL (130-400); RDW Coefficient of Variation 16.4 % (11.5-14.5); RDW Standard Deviation 59.1 fL (36.4-46.3); Red Blood Count 3.35 M/uL (4.7-6.1); White Blood Count 57.09 K/uL (4.8-10.8)
[2019-06-08 08:43] LABS: BUN Creatinine Ratio 14.3 (10-20); Creatinine Clr Calc Pharmacy 31.6 ml/min; Est GFR (African American) 36.9; Est GFR (Non-African American) 31.8; Potassium 3.9 mmol/L (3.5-5.1)
[2019-06-08 08:49] LABS: Glucose Pleural Fluid 109 mg/dl
[2019-06-08 08:55] LABS: Amylase Pleural Fluid 25 U/L; LDH Pleural Fluid 87 U/L; Total Protein Pleural Fluid 2.6 g/dl
[2019-06-08] MEDS ORDERED: FUROSEMIDE 20 MG TAB PO SCH (09:00)
[2019-06-08] MEDS: POTASSIUM CHLORIDE 20 MEQ TABCR PO SCH (09:08)
[2019-06-08] MEDS: CALCITRIOL 0.25 MCG CAPSULE PO SCH (09:08)
[2019-06-08] MEDS: cephALEXin 500 MG CAP PO SCH (09:08)
[2019-06-08] MEDS: ASPIRIN 81 MG ECTAB PO SCH (09:08)
[2019-06-08] MEDS: LISINOPRIL 5 MG TAB PO SCH (09:09)
[2019-06-08] MEDS: METOPROLOL SUCC 25MG EXT REL TAB PO SCH (09:09)
[2019-06-08 09:18] LABS: Appearance Pleural Fluid HAZY; Basophils, Fluid 0 %; Color Pleural Fluid STRAW; Eosinophils, Fluid 0 %; Lymphocytes, Fluid 93 %; Mono,Macrophage,Mesothelial 6 %; Neutrophils, Fluid 1 %; RBC Pleural Fluid (A) 4000 /uL; Source Pleural Fluid RIGHT LUNG; WBC Pleural Fluid (A) 538 /uL
--- NOTE | 2019-06-08 11:27 | Discharge Summary ---
Date of Service June 08, 2019 Admission HPI Per Admitting Provider 89-year-old male with history of multivessel severe coronary artery disease, ischemic cardiomyopathy status post NSTEMI, hypertension, hyperlipidemia, CLL, prostate cancer on Casodex, CKD 3, GERD presents with 1 week of shortness of breath at rest and on exertion. Patient was started on ibrutinib for his CLL about 35 days ago after which he developed hematuria and also noticed lower extremity edema and shortness of breath. Ibrutinib was stopped by Dr. Mireles about 2 weeks ago after he was noted to have hematuria and required 2 units of blood. She went to PCP last and had chest x-ray at [place] which PCP had not received until today. PCP called him today to go to the emergency room for concern of fluid in his lungs. He also reports hitting his left second toe on computer table about a week ago and notes red and swollen. He has chronic constipation and weakness. He now requires a wheelchair. He lives with his who cares for him. Denies any fever, chills, headache, lightheadedness, chest pain, palpitations, abdominal pain, nausea, vomiting, diarrhea, hematuria aphasia, melena, hematuria, dysuria Admission Exam Per Admitting Provider General: In NAD Neuro: A&O x 4 Pulm: CTAB equal breath sounds bilaterally CV: irregular rhythm, tachycardic, no m/r/g, JVD to mid-cricoid on abdominal pressure while in bed at 45 degrees Abdomen:+BS, no TTP in all quadrants, non-distended LE: 2+ RLE edema, no calf TTP; L foot 2nd toe edema, warmth and erythema - no skin breakdown noted Principal Diagnosis pleural effusion, acute on chronic CHF, AFib, toe infection Discharge Exam Constitutional WD/WN, vitals as above Respiratory normal respiratory effort, lungs clear to auscultation Cardiovascular RRR, no murmur, no edema Gastrointestinal (Abdomen) normal bowel sounds, soft, nontender, no hepatosplenomegaly Skin no rashes, warm and dry Psychiatric A+Ox3, euthymic affect Discharge Data Allergies Allergy/AdvReac Type Severity Reaction Status Date / Time Penicillins Allergy Mild Hives Verified 06/06/19 21:30 milk Allergy Unknown GI SYMPTOMS Verified 06/06/19 21:30 Sulfa (Sulfonamide Allergy Unknown UNKNOWN Verified 06/06/19 21:30 Antibiotics) Consultations 06/06/19 20:14 ED Decision to Admit Stat 06/06/19 21:55 Consult Cardiology Routine Consult Oncology Routine 06/07/19 12:24 Consult Thoracic Surgery Routine Hospital Course (1) Pleural effusion: 89-year-old male with history of CLL, multivessel severe CAD, ischemic cardiomyopathy after NSTEMI, HTN, HLD, prostate cancer on Casodex, CKD 3, GERD here for one week of shortness of breath found to have moderate pleural effusion on the right side. Pleural effusions/pulmonary edema Chronic Diastolic CHF - Chest x-ray: Mild cardiomegaly and mild volume overload, moderate right and small left pleural effusion, right greater than left basilar atelectasis. - Had diagnostic and therapeutic thoracentesis today and had resolution of his shortness of breath. Transudative effusion, likely cardiac in origin. - Started on Lasix 40mg PO daily at home per Cards. Will follow with Heart Failure clinic in outpatient setting. History of severe coronary artery disease, ischemic cardiomyopathy, hypertension, hyperlipidemia, A. fib - Echo February 2018: Mild concentric left ventricle hypertrophy, EF 50 to 55%, mild mitral regurg, grade 1 diastolic dysfunction, borderline dilated ascending aorta 4.1 cm. - Echo today showed EF now at 40-45%. - Cardiac cath March 2018: Severe coronary artery disease 90% proximal LAD ISR overlapping single MARGARET, 60-70% mid VANDANA, 90% proximal RCA, increased intracardiac filling pressures. -Continue home metoprolol, lisinopril, aspirin. Resumed Eliquis and asa. Left foot second toe erythema and edema status post trauma - Concern for infection given continued erythema and tenderness. - Sent home with Keflex 500mg PO BID for a total of 5 days of antibiotics. CKD 3: - BUN/creatinine 21/1.74, EGFR 33.8 - Creatinine baseline 1.5-1.6. Cr ~1.7. CLL - Recently started on ibrutinib -the medication for about 35 days then stopped about 2 weeks ago. - Patient had hematuria and developed lower extremity edema and shortness of br eath on medication which is why it was stopped. - Follows with Dr. Mireles. Will follow up with him outpatient. Prostate cancer - History of XRT and Casodex. - Continue Casodex. GERD - Continue home omeprazole and ranitidine. Disposition: Home (2) Toe infection: (3) CLL (chronic lymphocytic leukemia): (4) Acute diastolic CHF (congestive heart failure): (5) Aortic stenosis: (6) HLD (hyperlipidemia): (7) HTN (hypertension): (8) Ischemic cardiomyopathy: (9) A-fib: Total Time Total Time Spent Total Time Spent (In Minutes): see attending attestation. Discharge Plan Discharge Items Patient Disposition: Home - Home Health Services Reason For Visit: PULMONARY EDEMA Discharge Diagnosis: pleural effusion Activity: Resume your previous activity Non-emergency contact: Primary Care Provider and Hospitalist Call non-emergency contact if: your symptoms worsen Follow-up/Referrals: Renea Pearl PA-C [Physician Section Hand Helper] - 06/14/19 10:30 am (Congestive Heart Failure Program Appointment Information Early follow up is essential to managing your heart failure. An appointment has been scheduled for you with the [facility] Heart Failure Program within 7 days of discharge. Anticipate this visit to be 30-60 minutes long. Please expect a house painting instructor phone call from one of our nurses approximately 48 hours from discharge. They will also be placing an order for lab work to be completed 1-2 days prior to your heart failure follow up appointment. Please be sure to have this done so we can go over the results when you come in. Office Location The cardiology office building is located in front of the hospital at [address] Bring the following with you to your follow-up doctor appointments: Please bring your daily weight log any discharge paperwork all of your medication bottles with you to this visit. ) Dodie Beal MD [Primary Care Provider] - Diet: Low Sodium (2gm) Addtl Attending Provider Instructions: You were admitted to the hospital for your trouble breathing. While you were here we had to determine why you were short of breath. On xray we found that you had a large amount of fluid in your lungs making it more difficult for you to breathe. Dr. Love removed that fluid and you began to feel better. You will continue taking your metoprolol, Eliquis, and baby aspirin, but Cardiology has suggested that you stop taking your Plavix. We have started you on Lasix (fu rosemide), which is a water pill to help keep fluid off. You will take one 40 milligram tablet once a day every day. This medication will make you pee more. I have also sent you home on the Keflex (cephalexin) antibiotic we have been giving you for your swollen toe. You will take that once every 12 hours until the pills are gone. Please follow up with your primary care doctor within 1 week of discharge so that he/she can look at the toe. You prescriptions are at [facility]. Dr. Grajeda and his team will also set you up with an appointment in our Heart Failure clinic to make sure we have you on the right dosages of medicines for your heart moving forward. Pending Studies at Discharge: Yes Stand-Alone Forms: My [facility], Smoking Cessation Medications and DC Order Prescriptions: New cephalexin 500 mg Capsule 500 mg PO Q12 Qty: 7 RF: 0 furosemide 40 mg tablet 40 mg PO DAILY Qty: 30 RF: 2 Continued calcitriol 0.25 mcg capsule 0.25 mcg PO DAILY Qty: 90 RF: 1 lisinopril 5 mg tablet 5 mg PO DAILY Qty: 30 RF: 0 psyllium husk (with sugar) 3.4 gram powder in packet 3.4 g PO UD PRN (Reason: Constipation) RF: 0 ranitidine HCl 300 mg tablet 300 mg PO HS RF: 0 cyanocobalamin (vitamin B-12) 1,000 mcg/mL Solution 1,000 mcg SUBCUT MO RF: 0 metoprolol succinate [Toprol XL] 25 mg tablet extended release 24 hr 25 mg PO DAILY RF: 0 Eliquis 2.5 mg tablet 2.5 mg PO BID RF: 0 aspirin [Ecotrin Low Strength] 81 mg Tablet,Delayed Release (Dr/Ec) 81 mg PO DAILY RF: 0 atorvastatin 80 mg Tablet 40 mg PO BID RF: 0 bicalutamide [Casodex] 50 mg Tablet 50 mg PO QPM RF: 0 montelukast [Singulair] 10 mg Tablet 10 mg PO QPM RF: 0 cranberry 500 mg Capsule 500 mg PO DAILY RF: 0 nitroglycerin [Nitrostat] 0.4 mg Tablet, Sublingual 0.4 mg Sublingual UD PRN (Reason: Chest Pain) RF: 0 omeprazole 40 mg Capsule,Delayed Release(Dr/Ec) 40 mg PO QPM RF: 0 ranitidine HCl 300 mg tablet 300 mg PO DAILY PRN (Reason: Acid Reflux) RF: 0 zolpidem [Ambien] 10 mg tablet 10 mg PO HS RF: 0 Discontinued clopidogrel 75 mg Tablet 75 mg PO DAILY RF: 0 Discharge Orders: Discharge Order (Routine); Ordered 06/08/19 Ordered By: Sofya Keating Admission Data Admit Date/Time: 06/06/19 21:05 Attending Provider: Milka Palma Admit Provider: Irina Severino Primary Care Provider: Dodie Beal Other Providers: Irina Severino ; Oleg Laguna ; Papa Mireles ; Riley Love Other Interventions: Discharge Summary Assessment (RN) Last Done: 06/08/19 14:28 DC Date/Time DO NOT enter until pt leaves facility: 06/08/19 16:32 Supervising Physician Co-Signing Physician Notes Resident Physician Supervision Note: I independently interviewed and examined the patient and verified the balderrama history and physical, reviewed labs and image studies, discussed the case with the resident Dr. Gregg and agree with the findings and care plan. Resident Activity Tracking Resident Involvement: Resident Care Provided Care Provided: Adult Hospital Medicine
--- NOTE | 2019-06-08 13:09 | Cardiology Progress Note ---
Date of Service June 08, 2019 Assessment & Plan (1) Acute diastolic CHF (congestive heart failure): (2) A-fib: (3) Coronary artery disease: (4) HTN (hypertension): (5) Aortic stenosis: ASSESSMENT/PLAN: 1. Acute diastolic CHF: He appears compensated and euvolemic today. Recommend Lasix 40 mg once daily with discharge. We had a long discussion today regarding the importance of a low-sodium diet, less than 2000 mg daily. He was advised to read the labels before consuming food. Weigh himself daily and keep a list to bring to future appointments. Heart failure program recommended and discussed with patient, family, and Renea Pearl PA-C. 2. Atrial fibrillation: We discussed the diagnosis. He is adequately rate controlled. Can continue Eliquis for anticoagulation and stroke risk reduction. Continue current dose of beta-grazyna. Further rate control can be adjusted as necessary. If he does not tolerate a rate control strategy, can then consider cardioversion and/or antiarrhythmic therapy. He is comfortable with this decision. 3. CAD status post LAD PCI: No angina. Continue aspirin 81 mg daily. Discontinue Plavix now that he is on Eliquis. Continue beta-grazyna. Continue high-intensity statin therapy. 4. 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 LV systolic function is now mildly reduced. Monitor over time. 5. Hypertension: Blood pressure normotensive to mildly hypertensive. This may improve with home diuretic initiation. 6. Disposition: From a cardiac perspective, he can be discharged later today. Follow up closely with heart failure program. Plan of care communicated with primary hospitalist Service, Dr. Richards, as well as heart failure Dae BARAJAS. Subjective He was evaluated by me earlier this morning, shortly after undergoing thor acentesis. He feels much better and near back to baseline. He denies shortness of breath, syncope, near-syncope, chest pain, palpitations, or bleeding. He admits that he had edema upon presentation but this has improved. He maintains a low-sodium diet for the most part but does enjoy snacks such as potato chips, pretzels, etc. His and daughter were present at the bedside. Review of systems: As above. Physical Exam Physical Exam: Gen.: No acute distress. Alert. HEENT: Anicteric sclera. Neck: No JVD. No bruits. Normal carotid upstrokes bilaterally. Cardiac: Irregularly irregular. Normal S1-S2. 2/6 systolic murmur. No rubs, or gallops. Pulmonary: Decreased breath sounds at the left base, otherwise clear. Abdomen: Soft, nontender, nondistended, with normoactive bowel sounds. No bruits noted. Extremities: 2+ radial pulses bilaterally. 2+ posterior tibialis pulses bilaterally. Trace bilateral lower extremity edema. No cyanosis. Psychiatric: Affect appears appropriate. Results & Data Vital Signs (Past 12 Hours) Vital Signs Temp Pulse Resp BP Pulse Ox 06/08/19 12:02 36.4 C L 85 17 139/72 95 06/08/19 07:35 36.7 C 93 H 18 154/78 H 95 06/08/19 07:25 36.6 C 80 20 144/74 H 94 06/08/19 03:43 37.1 C 100 H 20 154/90 H 93 Laboratory Results Laboratory Results - last 24 hr 06/07/19 06/08/19 06/08/19 12:36 07:31 07:34 WBC RBC Hgb Hct MCV MCH MCHC RDW Std Deviation RDW Coeff of Kristen Plt Count MPV Sodium Potassium Chloride Carbon Dioxide Anion Gap BUN Creatinine Est Cr Clr Drug Dosing Est GFR ( Amer) Est GFR (Non-Af Amer) BUN/Creatinine Ratio Glucose Calcium Lactate Dehydrogenase 204 Fluid Neutrophils % 1 Fluid Lymphocytes % 93 Fluid Eosinophils % 0 Fluid Basophils % 0 Fluid Meso/Macro/[place] % 6 Pleural Fluid Source RIGHT LUNG Pleural Color STRAW Pleural Appearance HAZY Pleural pH 7.45 H Pleural WBC 538 Pleural RBC 4000 Pleural Total Protein 2.6 Pleural LDH 87 Pleural Glucose 109 Pleural Amylase 25 Pleural Cholesterol 06/08/19 06/08/19 06/08/19 07:34 07:52 07:52 WBC 57.09 H* RBC 3.35 L Hgb 10.5 L Hct 33.5 L MCV 100.0 MCH 31.3 MCHC 31.3 L RDW Std Deviation 59.1 H RDW Coeff of Kristen 16.4 H Plt Count 145 MPV 10.2 Sodium 144 Potassium 3.9 Chloride 109 H Carbon Dioxide 28 Anion Gap 7.0 BUN 27 H Creatinine 1.86 H Est Cr Clr Drug Dosing 31.6 Est GFR ( Amer) 36.9 Est GFR (Non-Af Amer) 31.8 BUN/Creatinine Ratio 14.3 Glucose 104 H Calcium 9.0 Lactate Dehydrogenase Fluid Neutrophils % Fluid Lymphocytes % Fluid Eosinophils % Fluid Basophils % Fluid Meso/Macro/[place] % Pleural Fluid Source Pleural Color Pleural Appearance Pleural pH Pleural WBC Pleural RBC Pleural Total Protein Pleural LDH Pleural Glucose Pleural Amylase Pleural Cholesterol Pending Diagnostic Findings Telemetry personally reviewed: Atrial fibrillation. No significant pause. Heart rate reasonable. Echo 06/07/2019: Mildly reduced LV systolic function. Mildly reduced RV systolic function. Mild left atrial dilation. Mild . Moderate MR. RVSP 30- 40. Medications Administered Current Inpatient Medications Acetaminophen (Tylenol) 650 mg PO Q4H PRN PRN Reason: Pain or Fever Stop: 07/06/19 21:54 Apixaban (Eliquis) 2.5 mg PO BID RODRIGO Stop: 07/06/19 21:54 Last Admin: 06/07/19 07:43 Dose: 2.5 mg Documented by: Aspirin (Ecotrin Ectab) 81 mg PO DAILY RODRIGO Stop: 07/07/19 08:59 Last Admin: 06/08/19 09:08 Dose: 81 mg Documented by: Atorvastatin Calcium (Lipitor) 80 mg PO QPM RODRIGO Stop: 07/06/19 22:59 Last Admin: 06/07/19 21:15 Dose: 80 mg Documented by: Bicalutamide (Casodex) 50 mg PO QPM RODRIGO Stop: 07/06/19 21:54 Last Admin: 06/07/19 21:16 Dose: 50 mg Documented by: Calcitriol (Rocaltrol) 0.25 mcg PO DAILY RODRIGO Stop: 07/07/19 08:59 Last Admin: 06/08/19 09:08 Dose: 0.25 mcg Documented by: Cephalexin HCl (Keflex) 500 mg PO Q12 RODRIGO Stop: 06/17/19 08:59 Last Admin: 06/08/19 09:08 Dose: 500 mg Documented by: Clopidogrel Bisulfate (Plavix) 75 mg PO DAILY RODRIGO Stop: 07/07/19 08:59 Last Admin: 06/07/19 07:44 Dose: 75 mg Documented by: Furosemide (Lasix) 20 mg PO QAM RODRIGO Stop: 07/08/19 08:59 Last Admin: 06/08/19 09:07 Dose: 20 mg Documented by: Lisinopril (Zestril) 5 mg PO DAILY RODRIGO Stop: 07/07/19 08:59 Last Admin: 06/08/19 09:09 Dose: 5 mg Documented by: Metoprolol Succinate (Toprol Xl) 25 mg PO DAILY RODRIGO Stop: 07/07/19 08:59 Last Admin: 06/08/19 09:09 Dose: 25 mg Documented by: Metoprolol Tartrate (Lopressor) 5 mg IV Q6 PRN PRN Reason: elevated HR > 110 Stop: 07/07/19 00:00 Montelukast Sodium (Singulair) 10 mg PO QPM RODRIGO Stop: 07/06/19 21:54 Last Admin: 06/07/19 21:16 Dose: 10 mg Documented by: Nitroglycerin (Nitrostat) 0.4 mg SL UD PRN PRN Reason: Chest Pain Stop: 07/06/19 21:54 Pantoprazole Sodium (Protonix) 40 mg PO QPM RODRIGO Stop: 07/06/19 22:29 Last Admin: 06/07/19 21:15 Dose: 40 mg Documented by: Polyethylene Glycol (Miralax Powder Packet) 17 gm PO DAILY PRN PRN Reason: Constipation Stop: 07/06/19 21:54 Potassium Chloride (Klor-Con M20) 20 meq PO BID RODRIGO Stop: 07/07/19 08:59 Last Admin: 06/08/19 09:08 Dose: 20 meq Documented by: Psyllium Hydrophilic Mucilloid (Metamucil) 1 pkt PO DAILY PRN PRN Reason: CONSTIPATION Stop: 07/06/19 22:44 Ranitidine HCl (Zantac) 300 mg PO DAILY PRN PRN Reason: Acid Reflux Stop: 07/06/19 21:54 Zolpidem Tartrate (Ambien) 10 mg PO HS [facility] Stop: 07/06/19 21:54 Last Admin: 06/07/19 21:14 Dose: 10 mg Documented by: PG Care Time/CCT Total # of Minutes Spent Total Time Spent with Patient: Total time spent is greater than 50% in coordination of care (as documented) at patient's floor/unit and/or counseling patient: (1) A-fib Atrial fibrillation type: unspecified Qualified Code(s): I48.91 - Unspecified atrial fibrillation
--- NOTE | 2019-06-09 15:26 | Procedure Note ---
Procedure Note Date of Service June 08, 2019 Note Preoperative diagnosis: Bilateral pleural effusions right greater than left Diagnosis: The same Procedure: Right thoracentesis under ultrasound guidance Surgeon Dr. Love Professional Driver Reginaldo BARAJAS Anesthesia local Procedure: Patient in upright position and bedside ultrasound used to evaluate both of his pleural effusions. The patient's son was in the room at the time we had a long explanation with both the patient and his son about the procedure. I evaluated both pleural cavities and appeared the pleural effusion was larger on the right than the left. We then marked an area and prepped and draped in usual fashion. After appropriate timeout of been called a 25-gauge needle with the dog and reason a slight skin subtenons tissues and a line just lateral to the mid axillary line posteriorly. This is about the seventh rib. After anesthetizing the deeper tissues and the pleura free-flowing fluid was obtained and a guidewire was inserted the needle and needle removed. Triple lumen cath was slid over the guidewire and the guidewire removed. 1500 cc of fluid was drained and he started having some reexpansion pain so we stopped. We had no bleeding. Catheter was removed and antimicrobial dressing was placed. Chest x-ray showed no evidence of pneumothorax with improvement of the right base. pH was 7.45. Other studies are pending. He tolerated quite well. Coding
== END 2019-06-08 16:32 | disposition home health service (06) | DRG 189 ==
LOC: ED 17:54 → 2W 21:05 → SUATTDRO 21:05 → 2W 21:27

== ENCOUNTER 2019-07-24 15:40 | Inpatient (IN) ==
--- NOTE | 2019-07-24 16:16 | XRay Report ---
XR chest 1V portable CLINICAL HISTORY: SEPSIS dyspnea COMPARISON STUDY: 06/08/2019 FINDINGS: Minimal bibasilar parenchymal interstitial infiltrative change. Mild stable cardiac enlarge ment. It upper lungs are clear. IMPRESSION: Minimal bibasilar interstitial infiltrative change. ACT 112: Negative or not required by law. The above report was generated using voice recognition software. It may contain grammatical, syntax or spelling errors. Electronically signed by: Vince Dubon M.D. 07/24/2019 4:15 PM
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
[2019-07-24 17:09] LABS: Influenza A virus by PCR Neg for Influ A (Neg); Influenza B virus by PCR Neg for Influ B (Neg)
[2019-07-24 17:42] LABS: Hematocrit (blood only) 27.6 % (42-52); Hemoglobin 8.6 g/dL (14.0-18.0); Mean Corpuscular Hemoglobin 32.3 pg (25-34); Mean Corpuscular Hgb Conc 31.2 g/dL (32-36); Mean Corpuscular Volume 103.8 fL (80-100); Platelet Count 157 K/uL (130-400); RDW Coefficient of Variation 17.6 % (11.5-14.5); RDW Standard Deviation 66.2 fL (36.4-46.3); Red Blood Count 2.66 M/uL (4.7-6.1); White Blood Count 51.67 K/uL (4.8-10.8)
[2019-07-24 17:46] LABS: INR 1.4 (0.9-1.1); Partial Thromboplastin Ratio 1.1; Partial Thromboplastin Time 29.1 Seconds (21.0-31.0); Prothrombin Time 13.7 Seconds (9.0-12.0)
[2019-07-24 17:52] LABS: Alanine Aminotransferase 10 U/L (12-78); Aspartate Aminotransferase 8 U/L (15-37); BUN Creatinine Ratio 14.4 (10-20); Blood Urea Nitrogen 23 mg/dl (7-18); Calcium 8.6 mg/dl (8.5-10.1); Carbon Dioxide 25 mmol/L (21-32); Chloride 106 mmol/L (98-107); Creatinine Clr Calc Pharmacy 36.3 ml/min; Est GFR (African American) 43.6; Est GFR (Non-African American) 37.6; Glucose 108 mg/dl (70-99); Magnesium 1.7 mg/dl (1.8-2.4); Potassium 4.3 mmol/L (3.5-5.1); Sodium 138 mmol/L (136-145)
[2019-07-24 17:58] LABS: Albumin Globulin Ratio 0.9 (0.9-2); Alkaline Phosphatase 129 U/L (45-117); Bilirubin,Total 0.6 mg/dl (0.2-1); Globulin 3.2 gm/dl (2.5-4.0); NT Pro B Type Natriuretic Pept 16888 pg/ml (0-1800); Total Protein 6.2 gm/dl (6.4-8.2); Troponin I < 0.015 ng/ml (0-0.045)
[2019-07-24 18:02] LABS: Basophils # (auto) 0.05 K/uL (0-0.2); Basophils % (auto) 0.1 %; Eosinophils # (auto) 0.03 K/uL (0-0.5); Eosinophils % (auto) 0.1 %; Immature Granulocytes # (auto) 0.05 K/uL (0.00-0.02); Immature Granulocytes % (auto) 0.1 %; Lymphocytes # (auto) 46.77 K/uL (1.2-3.4); Lymphocytes % (auto) 90.5 %; Monocytes # (auto) 0.52 K/uL (0.11-0.59); Neutrophils # (auto) 4.25 K/uL (1.4-6.5); Neutrophils % (auto) 8.2 %; Smudge Cells Present
[2019-07-24] MEDS ORDERED: CEFEPIME 2,000 MG/20 ML VIAL IV STA (18:24)
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
[2019-07-24] MEDS ORDERED: MAGNESIUM HYDROXIDE SUSP 30 ML UDC PO PRN (21:41)
[2019-07-24] MEDS ORDERED: NITROGLYCERIN SL 0.4 MG/TAB TAB SL PRN (21:41)
[2019-07-24] MEDS ORDERED: ONDANSETRON INJ 2 MG/ML 2 ML VIAL IV PRN (21:41)
[2019-07-24] MEDS ORDERED: BENZONATATE 100 MG CAPSULE PO PRN (21:41)
[2019-07-24] MEDS ORDERED: ALBUTEROL HFA 8 GM INHALER INH PRN (21:41)
[2019-07-24] MEDS: ZOLPIDEM TARTRATE 10 MG TAB PO SCH (22:24)
[2019-07-24] MEDS: APIXABAN 2.5 MG TAB PO SCH (22:25)
[2019-07-24] MEDS: PANTOprazole 40 MG TAB PO SCH (22:25)
[2019-07-24] MEDS: MONTELUKAST SODIUM 10 MG TABLET PO SCH (22:25)
[2019-07-24] MEDS: BICALUTAMIDE 50 MG TAB PO SCH (22:25)
[2019-07-25] MEDS: CEFEPIME 2,000 MG in SYRINGE 7.5 ML IV SCH ×2 (05:37→17:18)
[2019-07-25 07:56] LABS: Hematocrit (blood only) 28.6 % (42-52); Hemoglobin 8.8 g/dL (14.0-18.0); Mean Corpuscular Hemoglobin 31.3 pg (25-34); Mean Corpuscular Hgb Conc 30.8 g/dL (32-36); Mean Corpuscular Volume 101.8 fL (80-100); Platelet Count 155 K/uL (130-400); RDW Coefficient of Variation 17.5 % (11.5-14.5); RDW Standard Deviation 64.7 fL (36.4-46.3); Red Blood Count 2.81 M/uL (4.7-6.1); White Blood Count 53.13 K/uL (4.8-10.8)
[2019-07-25 08:21] LABS: BUN Creatinine Ratio 14.9 (10-20); Est GFR (African American) 40.3; Est GFR (Non-African American) 34.7; Potassium 4.2 mmol/L (3.5-5.1)
[2019-07-25] MEDS: CALCITRIOL 0.25 MCG CAPSULE PO SCH (08:27)
[2019-07-25] MEDS: ASPIRIN 81 MG ECTAB PO SCH (08:27)
[2019-07-25] MEDS: ATORVASTATIN 40 MG TAB PO SCH (08:27)
[2019-07-25] MEDS: FUROSEMIDE 20 MG TAB PO SCH (08:27)
[2019-07-25] MEDS: lisinopriL 5 MG TAB PO SCH (08:27)
[2019-07-25] MEDS: APIXABAN 2.5 MG TAB PO SCH ×2 (08:28→20:46)
[2019-07-25] MEDS: METOPROLOL SUCC 25MG EXT REL TAB PO SCH (08:28)
[2019-07-25 08:42] LABS: Acanthocytes 1+; Basophils # (auto) 0.04 K/uL (0-0.2); Basophils % (auto) 0.1 %; Eosinophils # (auto) 0.03 K/uL (0-0.5); Eosinophils % (auto) 0.1 %; Immature Granulocytes # (auto) 0.05 K/uL (0.00-0.02); Immature Granulocytes % (auto) 0.1 %; Lymphocytes # (auto) 48.25 K/uL (1.2-3.4); Lymphocytes % (auto) 90.8 %; Monocytes # (auto) 0.54 K/uL (0.11-0.59); Neutrophils # (auto) 4.22 K/uL (1.4-6.5); Neutrophils % (auto) 7.9 %; Ovalocytes 1+; Smudge Cells Present
--- NOTE | 2019-07-25 14:49 | Electrocardiogram Report ---
Test Reason : Blood Pressure : / mmHG Vent. Rate : 100 BPM Atrial Rate : 119 BPM P-R Int : 000 ms QRS Dur : 090 ms QT Int : 364 ms P-R-T Axes : 000 -18 047 degrees QTc Int : 469 ms Atrial fibrillation Possible Anterior infarct (cited on or before 06-JUN-2019) Abnormal ECG When compared with ECG of 06-JUN-2019 18:54, No significant change was found Confirmed by Maurice Hernandez ([id number]) on 07/25/2019 2:49:33 PM Referred By: REFERRED SELF Confirmed By:Maurice Hernandez
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
--- NOTE | 2019-07-25 18:35 | Hospitalist Progress Note ---
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, will avoid additional dosing per pt request in the setting of feeling improved overall from a respiratory standpoint ECHO 05/2019 with EF 40-45%, will not repeat at this time given CHF exacerbation is likely being caused by PNA and not worsening status Trop neg x1 EKG neg for acute issue WBC elevated at baseline due to CLL (2) Chronic lymphocytic leukemia: Pt states he was to start a new chemo medication as an inpt on 07/25 Oncology planning to hold new chemo as it can cause tumor lysis syndrome, they will work with pt on d/c (3) Aortic stenosis: As noted above (4) HLD (hyperlipidemia): continue home meds (5) HTN (hypertension): continue home meds (6) A-fib: Fabián, continue home meds (7) Prostate carcinoma: continue home medication (8) CKD (chronic kidney disease) stage 3, GFR 30-59 ml/min: Baseline cr 1.8-2.1, 1.6 on admission Monitor (9) DVT prophylaxis: Fabián Subjective Pt is still SOB, but better. He was able to ambulate better, but did have some SOB with this. He was not able to lay flat due to breathing issues, but he did sleep better last night. SOB at rest is now minimal. He would like to avoid additional lasix use due it causing him to feel more weak. Tolerating PO without issue. Pt denies fever, chest pain, abd pain, n/v/c/d, LE pain or swelling. Review of Systems Review of Systems: Pertinent positives and negatives reviewed in HPI--all others negative Physical Exam Constitutional: WD/WN, vitals as above Eyes: normal visual reza by confrontation and + anicteric sclerae Neck: normal visual inspection and trachea midline Respiratory: normal respiratory effort; no respiratory distress Auscultation: + diminished lung sounds (much improved) and + crackles (much improved); no wheezes Cardiovascular: Rate/Rhythm: regular rate; + abnormal rhythm Gastrointestinal (Abdomen): Inspection/Auscultation: abdomen not distended Percussion/Palpation: abdomen soft; abdomen nontender Musculoskeletal: Head/Neck/Chest: normocephalic and head atraumatic Skin: no rashes, warm and dry + pallor Neurologic: awake; not confused Speech / Cognition: normal speech Psychiatric: A+Ox3, euthymic affect Results & Data Vital Signs (Past 12 Hours) Vital Signs Temp Pulse Resp BP Pulse Ox 07/25/19 15:18 36.7 C 93 H 18 125/67 96 07/25/19 12:39 36.5 C 99 H 20 118/64 96 07/25/19 08:07 36.7 C 92 H 20 138/67 96 PG Care Time/CCT Total # of Minutes Spent Total Time Spent with Patient: Total time spent is greater than 50% in coordination of care (as documented) at patient's floor/unit and/or counseling patient: (1) A-fib Atrial fibrillation type: unspecified Qualified Code(s): I48.91 - Unspecified atrial fibrillation
[2019-07-25] MEDS: MONTELUKAST SODIUM 10 MG TABLET PO SCH (20:47)
[2019-07-25] MEDS: BICALUTAMIDE 50 MG TAB PO SCH (20:47)
[2019-07-25] MEDS: PANTOprazole 40 MG TAB PO SCH (20:47)
[2019-07-25] MEDS: ZOLPIDEM TARTRATE 10 MG TAB PO SCH (23:08)
[2019-07-26] MEDS: CEFEPIME 2,000 MG in SYRINGE 7.5 ML IV SCH ×2 (05:52→17:33)
[2019-07-26] MEDS: ACETAMINOPHEN 325 MG TAB PO PRN (05:58)
[2019-07-26] MEDS: CALCITRIOL 0.25 MCG CAPSULE PO SCH (08:53)
[2019-07-26] MEDS: lisinopriL 5 MG TAB PO SCH (08:53)
[2019-07-26] MEDS: FUROSEMIDE 20 MG TAB PO SCH (08:53)
[2019-07-26] MEDS: ATORVASTATIN 40 MG TAB PO SCH (08:54)
[2019-07-26] MEDS: APIXABAN 2.5 MG TAB PO SCH ×2 (08:54→20:25)
[2019-07-26] MEDS: METOPROLOL SUCC 25MG EXT REL TAB PO SCH (08:54)
[2019-07-26 10:03] LABS: Creatinine Clr Calc Pharmacy 32.3 ml/min; Est GFR (African American) 37.9; Est GFR (Non-African American) 32.7
[2019-07-26] MEDS: ASPIRIN 81 MG ECTAB PO SCH (10:29)
[2019-07-26] MEDS ORDERED: FUROSEMIDE 20 MG in SYRINGE 0 ML IV ONE (12:45)
--- NOTE | 2019-07-26 13:39 | Hospitalist Progress Note ---
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 Will given additional 20mg IV today and monitor ECHO 05/2019 with EF 40-45%, will not repeat at this time given CHF exacerbation is likely being caused by PNA and not worsening status Trop neg x1 EKG neg for acute issue WBC elevated at baseline due to CLL (2) Ankle pain: Hx of similar "spontaneously" appearing joint pain that has resolved spontaneously and oncology feels is related to CLL Offered XR given TTP, however pt states that he would like to hold on this given hx and I agree with this Warm heat Monitor (3) Chronic lymphocytic leukemia: Pt states he was to start a new chemo medication as an inpt on 07/25 Oncology planning to hold new chemo as it can cause tumor lysis syndrome, they will work with pt on d/c (4) Aortic stenosis: As noted above (5) HLD (hyperlipidemia): continue home meds (6) HTN (hypertension): continue home meds (7) A-fib: Eliquis, continue home meds (8) Prostate carcinoma: continue home medication (9) CKD (chronic kidney disease) stage 3, GFR 30-59 ml/min: Baseline cr 1.8-2.1, 1.6 on admission Monitor (10) DVT prophylaxis: Eliquis Subjective Pt is still SOB, but continues to feel better. He is able to ambulate better, but did have some SOB with this. No SOB at rest now. He still does not feel at his baseline. Tolerating PO without issue. Pt denies fever, chest pain, abd pain, n/v/c/d. Pt woke up this AM with R ankle pain and swelling. No trauma that he is aware of. It is painful to walk now. He has hx of similar pain and swelling without trauma to the L wrist and L toes in the past. He was told by oncology that this can happen with CLL. It resolved on its own in the past. Review of Systems Review of Systems: Pertinent positives and negatives reviewed in HPI--all others negative Physical Exam Constitutional: WD/WN, vitals as above Eyes: normal visual reza by confrontation and + anicteric sclerae Neck: normal visual inspection and trachea midline Respiratory: normal respiratory effort; no respiratory distress Auscultation: + diminished lung sounds (much improved on the R, still a bit diminished on the L) and + crackles (R is mostly resolved, still with crackles to the L); no wheezes Cardiovascular: Rate/Rhythm: regular rate; + abnormal rhythm Gastrointestinal (Abdomen): Inspection/Auscultation: abdomen not distended Percussion/Palpation: abdomen soft; abdomen nontender Musculoskeletal: Head/Neck/Chest: normocephalic and head atraumatic Ankle: + ankle abnormal to inspection (L lat ankle swelling, TTP. No redness or ulcerations noted) Skin: no rashes, warm and dry + pallor Neurologic: awake; not confused Speech / Cognition: normal speech Psychiatric: A+Ox3, euthymic affect Results & Data Vital Signs (Past 12 Hours) Vital Signs Temp Pulse Resp BP Pulse Ox 07/26/19 12:15 36.6 C 107 H 18 105/63 98 07/26/19 08:24 36.8 C 109 H 20 139/68 95 07/26/19 04:02 37.6 C H 108 H 18 138/72 96 PG Care Time/CCT Total # of Minutes Spent Total Time Spent with Patient: Total time spent is greater than 50% in coordination of care (as documented) at patient's floor/unit and/or counseling patient: (1) A-fib Atrial fibrillation type: unspecified Qualified Code(s): I48.91 - Unspecified atrial fibrillation
[2019-07-26] MEDS: MONTELUKAST SODIUM 10 MG TABLET PO SCH (20:25)
[2019-07-26] MEDS: PANTOprazole 40 MG TAB PO SCH (20:28)
[2019-07-26] MEDS: BICALUTAMIDE 50 MG TAB PO SCH (20:29)
[2019-07-26] MEDS: ZOLPIDEM TARTRATE 10 MG TAB PO SCH (22:18)
[2019-07-27] MEDS: CEFEPIME 2,000 MG in SYRINGE 7.5 ML IV SCH (05:48)
[2019-07-27 06:21] LABS: BUN Creatinine Ratio 16.7 (10-20); Calcium 8.5 mg/dl (8.5-10.1); Creatinine Clr Calc Pharmacy 28.3 ml/min; Est GFR (African American) 32.2; Est GFR (Non-African American) 27.8; Potassium 3.7 mmol/L (3.5-5.1)
[2019-07-27 06:30] LABS: Hematocrit (blood only) 27.3 % (42-52); Hemoglobin 8.4 g/dL (14.0-18.0); Mean Corpuscular Hemoglobin 32.1 pg (25-34); Mean Corpuscular Hgb Conc 30.8 g/dL (32-36); Mean Corpuscular Volume 104.2 fL (80-100); Mean Platelet Volume 9.6 fL (7.4-10.4); Platelet Count 176 K/uL (130-400); RDW Coefficient of Variation 17.1 % (11.5-14.5); Red Blood Count 2.62 M/uL (4.7-6.1); White Blood Count 69.14 K/uL (4.8-10.8)
[2019-07-27 06:39] LABS: Basophils # (auto) 0.09 K/uL (0-0.2); Basophils % (auto) 0.1 %; Echinocytes 1+; Eosinophils # (auto) 0.07 K/uL (0-0.5); Eosinophils % (auto) 0.1 %; Immature Granulocytes # (auto) 0.11 K/uL (0.00-0.02); Immature Granulocytes % (auto) 0.2 %; Lymphocytes % (auto) 91.7 %; Monocytes # (auto) 0.81 K/uL (0.11-0.59); Monocytes % (auto) 1.2 %; Neutrophils # (auto) 4.66 K/uL (1.4-6.5); Neutrophils % (auto) 6.7 %; Ovalocytes 1+; Smudge Cells Present
[2019-07-27] MEDS: ATORVASTATIN 40 MG TAB PO SCH (08:40)
[2019-07-27] MEDS: METOPROLOL SUCC 25MG EXT REL TAB PO SCH (08:41)
[2019-07-27] MEDS: CALCITRIOL 0.25 MCG CAPSULE PO SCH (08:41)
[2019-07-27] MEDS: ASPIRIN 81 MG ECTAB PO SCH (08:41)
[2019-07-27] MEDS: lisinopriL 5 MG TAB PO SCH (08:41)
[2019-07-27] MEDS: APIXABAN 2.5 MG TAB PO SCH ×2 (08:42→20:35)
[2019-07-27] MEDS ORDERED: FUROSEMIDE 40 MG TAB PO SCH (09:00)
--- NOTE | 2019-07-27 16:05 | Hospitalist Progress Note ---
Date of Service July 27, 2019 Assessment & Plan (1) SOB (shortness of breath): Likely PNA with CHF exacerbation CXR noted for bibasilar infiltrates Failed outpt azithromycin Started on cefepime in the ED on 07/24, change to cefdinir on 07/27 Flu neg Blood cx neg on prelim BNP elevated, pt sleeping in a recliner RN TRAINING Reclarified pt's outpt dosing--Pt does not take daily lasix, but does weigh himself daily. If his weight is up, he adds 20mg and if he has ongoing issues or SOB, he might take 40mg. He had been taking 20mg RN TRAINING for increased weight and WOB ECHO 05/2019 with EF 40-45%, will not repeat at this time given CHF exacerbation is likely being caused by PNA and not worsening status Trop neg x1 EKG neg for acute issue WBC elevated at baseline due to CLL Pt doing better s/p additional lasix 20mg IV on 07/26. Will hold on further given cr elevation. Moving PO lasix back to 20mg for 07/[address] 07/27 w/o need for modification other than pudding with pills (2) Ankle pain: Hx of similar "spontaneously" appearing joint pain that has resolved spontaneously and oncology feels is related to CLL Offered XR given TTP, however pt states that he would like to hold on this given hx and I agree with this Warm heat Monitor PT/OT evals pending (3) Chronic lymphocytic leukemia: Pt states he was to start a new chemo medication as an inpt on 07/25 Oncology planning to hold new chemo as it can cause tumor lysis syndrome, they will work with pt on d/c (4) Aortic stenosis: As noted above (5) HLD (hyperlipidemia): continue home meds (6) HTN (hypertension): continue home meds (7) A-fib: Eliquis, continue home meds (8) Prostate carcinoma: continue home medication (9) CKD (chronic kidney disease) stage 3, GFR 30-59 ml/min: Baseline cr 1.8-2.1, 1.6 on admission Monitor (10) DVT prophylaxis: Fabián Subjective Pt is continues to feel better. His ambulation is more limited by his ankle pain, but still with some SOB when OOB. He is sleeping better, although he has not tried to lie flat. No SOB at rest now. He still does not feel at his baseline. Tolerating PO without issue. Pt denies fever, chest pain, abd pain, n/v/c/d. R ankle pain and swelling are less, but still present. Pt had a coughing/choking episode with his meds this AM. He states that this does happen at times with PO intake at home. Review of Systems Review of Systems: Pertinent positives and negatives reviewed in HPI--all others negative Physical Exam Constitutional: WD/WN, vitals as above Eyes: normal visual reza by confrontation and + anicteric sclerae Neck: normal visual inspection and trachea midline Respiratory: normal respiratory effort; no respiratory distress Auscultation: no crackles (R is mostly resolved, still with crackles to the L) and no wheezes Cardiovascular: Rate/Rhythm: regular rate; + abnormal rhythm Gastrointestinal (Abdomen): Inspection/Auscultation: abdomen not distended Percussion/Palpation: abdomen soft; abdomen nontender Musculoskeletal: Head/Neck/Chest: normocephalic and head atraumatic Ankle: + ankle abnormal to inspection (L lat ankle swelling, TTP. No redness or ulcerations noted) Skin: no rashes, warm and dry + pallor Neurologic: awake; not confused Speech / Cognition: normal speech Psychiatric: A+Ox3, euthymic affect Results & Data Vital Signs (Past 12 Hours) Vital Signs Temp Pulse Pulse Resp BP Pulse Ox 07/27/19 15:18 37.1 C 89 16 145/70 H 98 07/27/19 11:08 36.9 C 62 16 126/58 L 94 07/27/19 07:37 36.7 C 92 H 16 138/66 96 07/27/19 07:00 92 H 07/27/19 04:00 36.9 C 106 H 20 113/70 98 PG Care Time/CCT Total # of Minutes Spent Total Time Spent with Patient: Total time spent is greater than 50% in coordination of care (as documented) at patient's floor/unit and/or counseling patient: (1) A-fib Atrial fibrillation type: unspecified Qualified Code(s): I48.91 - Unspecified atrial fibrillation
[2019-07-27] MEDS: ACETAMINOPHEN 325 MG TAB PO PRN (16:44)
[2019-07-27] MEDS: PANTOprazole 40 MG TAB PO SCH (20:35)
[2019-07-27] MEDS: CEFDINIR 300 MG CAP PO SCH (20:35)
[2019-07-27] MEDS: MONTELUKAST SODIUM 10 MG TABLET PO SCH (20:35)
[2019-07-27] MEDS: BICALUTAMIDE 50 MG TAB PO SCH (20:36)
[2019-07-27] MEDS: ZOLPIDEM TARTRATE 10 MG TAB PO SCH (23:06)
[2019-07-28] MEDS: ACETAMINOPHEN 325 MG TAB PO PRN ×2 (04:03→11:45)
[2019-07-28 06:21] LABS: Hematocrit (blood only) 26.3 % (42-52); Hemoglobin 8.3 g/dL (14.0-18.0); Mean Corpuscular Hgb Conc 31.6 g/dL (32-36); Mean Corpuscular Volume 101.5 fL (80-100); Mean Platelet Volume 9.8 fL (7.4-10.4); Platelet Count 186 K/uL (130-400); RDW Coefficient of Variation 17.1 % (11.5-14.5); RDW Standard Deviation 62.3 fL (36.4-46.3); Red Blood Count 2.59 M/uL (4.7-6.1); White Blood Count 67.71 K/uL (4.8-10.8)
[2019-07-28 06:50] LABS: BUN Creatinine Ratio 17.1 (10-20); Calcium 8.6 mg/dl (8.5-10.1); Creatinine Clr Calc Pharmacy 25.9 ml/min; Potassium 3.8 mmol/L (3.5-5.1)
[2019-07-28 07:35] LABS: Basophils # (auto) 0.09 K/uL (0-0.2); Basophils % (auto) 0.1 %; Eosinophils # (auto) 0.05 K/uL (0-0.5); Eosinophils % (auto) 0.1 %; Immature Granulocytes # (auto) 0.11 K/uL (0.00-0.02); Immature Granulocytes % (auto) 0.2 %; Lymphocytes # (auto) 61.88 K/uL (1.2-3.4); Lymphocytes % (auto) 91.4 %; Monocytes # (auto) 0.06 K/uL (0.11-0.59); Monocytes % (auto) 0.1 %; Neutrophils # (auto) 5.52 K/uL (1.4-6.5); Neutrophils % (auto) 8.1 %; Poikilocytosis Present; Smudge Cells Present
[2019-07-28] MEDS ORDERED: FUROSEMIDE 20 MG TAB PO SCH (09:00)
[2019-07-28] MEDS: APIXABAN 2.5 MG TAB PO SCH ×2 (09:16→20:16)
[2019-07-28] MEDS: ASPIRIN 81 MG ECTAB PO SCH (09:17)
[2019-07-28] MEDS: lisinopriL 5 MG TAB PO SCH (09:17)
[2019-07-28] MEDS: CEFDINIR 300 MG CAP PO SCH (09:17)
[2019-07-28] MEDS: METOPROLOL SUCC 25MG EXT REL TAB PO SCH (09:18)
[2019-07-28] MEDS: CALCITRIOL 0.25 MCG CAPSULE PO SCH (09:18)
[2019-07-28] MEDS: ATORVASTATIN 40 MG TAB PO SCH (09:18)
[2019-07-28] MEDS ORDERED: COLCHICINE 0.6 MG TAB PO STA (13:07)
[2019-07-28] MEDS ORDERED: predniSONE 20 MG TAB PO STA (13:10)
[2019-07-28] MEDS: TRIAMCINOLONE ACET 0.1% CR 80 GM TUBE EXT SCH ×2 (14:42→20:16)
[2019-07-28] MEDS: PANTOprazole 40 MG TAB PO SCH (20:14)
[2019-07-28] MEDS: MONTELUKAST SODIUM 10 MG TABLET PO SCH (20:15)
[2019-07-28] MEDS: BICALUTAMIDE 50 MG TAB PO SCH (20:18)
--- NOTE | 2019-07-28 21:22 | Hospitalist Progress Note ---
Date of Service July 28, 2019 Assessment & Plan (1) Bilateral pneumonia: b/l lower lobe. either community-acquired vs aspiration. Had been on cefepime starting 07/24, then transitioned to cefdinir on 07/27. thus, today is day #5 of 7. finish course. clinically improved. (2) Polyarticular arthritis: right knee, b/l ankle, right mid-foot. most likely gout. 06/2019 - uric acid level ~9. could consider right knee arthrocentesis for definitive diagnosis but will assume it is gout for now. plan - colchicine 0.6mg po x 1 now for quick relief. then prednisone 20mg po x 1. then starting tomorrow prednisone 10mg for 5-7 additional days. recheck uric acid level in am. if he fails to improve or worsens consider x-rays of 1 or more joints along with right knee arthrocentesis. if this is indeed gout then when flare is over consider allopurinol (will need such anyway when he starts chemo for CLL) (3) Acute on chronic systolic CHF (congestive heart failure): was diuresed earlier this stay. appears euvolemic today. in light of mild acute kidney injury would hold lasix. repeat BMP am. also hold MARILYN in midst of mild acute kidney injury. EF on prior echo 05/2019 was 40-45%. global hypokinesis. continue toprol xl. (4) Chronic lymphocytic leukemia: Followed by Dr Mireles. Spoke with him today - chemo that was supposed to be initiated a few days ago is on hold due to concurrent illness. Elevated WBC is 2nd to CLL. Repeat CBC in am. Ok to use low-dose prednisone per Dr Mireles but counts just need to be followed carefully while on such. (5) Aortic stenosis: mild on echo 05/2019 (6) HLD (hyperlipidemia): continue home meds (7) HTN (hypertension): hold MARILYN and lasix due to mild acute kidney injury (8) A-fib: cont renal-dosed eliquis cont toprol xl satisfactory control for now (9) Prostate carcinoma: continue home medication (bicalutamide) (10) CKD (chronic kidney disease) stage 3, GFR 30-59 ml/min: Baseline cr 1.8 or so now with superimposed acute kidney injury (mild, Cr today 2.27) hold MARILYN and lasix repeat BMP am (11) Rash: this looks like an irritant/contact dermatitis rash due to sweating and exposure to the harsh chemicals used to clean the bedsheets prednisone for suspected gout will help triamcinolone cream 0.1% TID for 7-10 days (12) DVT prophylaxis: Fabián PT saw patient today; cleared to return home today /daughter extensively updated at bedside today care was d/w the pt's primary oncologist, Dr Mireles, by phone today Subjective Pt complains of right knee pain, ongoing right foot/ankle pain, and now the start of left ankle pain. The right ankle pain began earlier this week suddenly, which was then followed by right knee pain/swelling. Sometime overnight the left ankle also began to bother him although this joint is not as swollen. He can ambulate although the right knee/ankle pain makes it harder to do so. Breathing is doing well - denies any cough or dyspnea. No fevers. Eating well. Also complains of a new rash on back. It is not located any other location. Mildly pruritic. reports he sweats at night because of CLL and she feels the sweating is making it worse. Review of Systems Constitutional: + sweats; no fever and no anorexia Respiratory: no cough, no dyspnea and no dyspnea on exertion Cardiovascular: no chest pain Gastrointestinal: no abdominal pain, no nausea and no vomiting Physical Exam Constitutional: no acute distress and no altered mental status ENMT: external ear and nose normal, oropharynx normal Respiratory: normal respiratory effort, lungs clear to auscultation Auscultation: + diminished lung sounds (bases); no crackles and no wheezes Cardiovascular: Rate/Rhythm: regular rhythm and + irregularly irregular Heart Sounds: normal S1, normal S2 and + murmur (1/6 systolic) Vessels: posterior tibial pulses present and dorsalis pedis pulses present; no JVD Extremities: + edema (localized right midfoot and ankle) Gastrointestinal (Abdomen): Inspection/Auscultation: abdomen normal to inspection and normal bowel sounds Percussion/Palpation: abdomen soft and + splenomegaly (possible); abdomen nontender and no hepatomegaly Musculoskeletal: mild effusion right knee; minimal warmth right knee. OA changes right knee. Mild discomfort passive/active ROM right knee. Right ankle with mild effusion and minimal warmth; tender to palpation. right mid-foot also with localized swelling and tenderness. Mild swelling right great toe MTP joint. left ankle - scant tenderness to palpation but no synovitis. Skin: + rash (erythematous papules ON BACK only; no other areas of skin with rash) Psychiatric: A+Ox3, euthymic affect Results & Data Vital Signs (Past 12 Hours) Vital Signs Temp Pulse Pulse Resp BP Pulse Ox 07/28/19 19:22 37.1 C 104 H 20 126/71 95 07/28/19 16:58 89 07/28/19 16:30 36.4 C L 104 H 22 132/67 100 07/28/19 11:20 36.5 C 96 H 16 104/51 L 96 Laboratory Results Laboratory Results - last 24 hr 07/28/19 07/28/19 05:37 05:37 WBC 67.71 H* RBC 2.59 L Hgb 8.3 L Hct 26.3 L MCV 101.5 H MCH 32.0 MCHC 31.6 L RDW Std Deviation 62.3 H RDW Coeff of Kristen 17.1 H Plt Count 186 MPV 9.8 Immature Gran % (Auto) 0.2 Neut % (Auto) 8.1 Lymph % (Auto) 91.4 [place] % (Auto) 0.1 Eos % (Auto) 0.1 Baso % (Auto) 0.1 Immature Gran # (Auto) 0.11 H Neut # (Auto) 5.52 Lymph # (Auto) 61.88 H [place] # (Auto) 0.06 L Eos # (Auto) 0.05 Baso # (Auto) 0.09 Smudge Cells Present Poikilocytosis Present Sodium 137 Potassium 3.8 Chloride 108 H Carbon Dioxide 22 Anion Gap 7.0 BUN 39 H Creatinine 2.27 H Est Cr Clr Drug Dosing 25.9 Est GFR ( Amer) 29.0 Est GFR (Non-Af Amer) 25.0 BUN/Creatinine Ratio 17.1 Glucose 132 H Calcium 8.6 PG Care Time/CCT Total # of Minutes Spent Total Time Spent with Patient: Total time spent is greater than 50% in coordination of care (as documented) at patient's floor/unit and/or counseling patient: (1) Aortic stenosis Cardiac valve disease etiology: etiology unspecified Qualified Code(s): I35.0 - Nonrheumatic aortic (valve) stenosis (2) A-fib Atrial fibrillation type: unspecified Qualified Code(s): I48.91 - Unspecified atrial fibrillation (3) HLD (hyperlipidemia) Hyperlipidemia type: mixed hyperlipidemia Qualified Code(s): E78.2 - Mixed hyperlipidemia (4) HTN (hypertension) Hypertension type: essential hypertension Qualified Code(s): I10 - Essential (primary) hypertension (5) Bilateral pneumonia Pneumonia type: due to unspecified organism Lung location: lower lobe of lung Qualified Code(s): J18.9 - Pneumonia, unspecified organism
[2019-07-28] MEDS: ZOLPIDEM TARTRATE 10 MG TAB PO SCH (22:13)
[2019-07-29 05:59] LABS: Hematocrit (blood only) 26.7 % (42-52); Hemoglobin 8.4 g/dL (14.0-18.0); Mean Corpuscular Hemoglobin 32.1 pg (25-34); Mean Corpuscular Hgb Conc 31.5 g/dL (32-36); Mean Corpuscular Volume 101.9 fL (80-100); Mean Platelet Volume 9.8 fL (7.4-10.4); Platelet Count 203 K/uL (130-400); RDW Coefficient of Variation 17.1 % (11.5-14.5); RDW Standard Deviation 61.9 fL (36.4-46.3); Red Blood Count 2.62 M/uL (4.7-6.1)
[2019-07-29 06:25] LABS: Calcium 8.7 mg/dl (8.5-10.1); Creatinine Clr Calc Pharmacy 28.8 ml/min; Est GFR (Non-African American) 28.5; Potassium 4.1 mmol/L (3.5-5.1); Uric Acid 7.5 mg/dl (2.6-7.2)
[2019-07-29 06:27] LABS: Basophils # (auto) 0.08 K/uL (0-0.2); Basophils % (auto) 0.1 %; Echinocytes 1+; Immature Granulocytes % (auto) 0.1 %; Lymphocytes # (auto) 66.31 K/uL (1.2-3.4); Lymphocytes % (auto) 91.7 %; Monocytes # (auto) 0.93 K/uL (0.11-0.59); Monocytes % (auto) 1.3 %; Neutrophils # (auto) 4.88 K/uL (1.4-6.5); Neutrophils % (auto) 6.8 %; Smudge Cells Present
[2019-07-29] MEDS: ASPIRIN 81 MG ECTAB PO SCH (08:18)
[2019-07-29] MEDS: METOPROLOL SUCC 25MG EXT REL TAB PO SCH (08:18)
[2019-07-29] MEDS: CALCITRIOL 0.25 MCG CAPSULE PO SCH (08:19)
[2019-07-29] MEDS: ATORVASTATIN 40 MG TAB PO SCH (08:19)
[2019-07-29] MEDS: TRIAMCINOLONE ACET 0.1% CR 80 GM TUBE EXT SCH ×2 (08:20→13:11)
[2019-07-29] MEDS ORDERED: CEFDINIR 300 MG CAP PO SCH (09:00)
[2019-07-29] MEDS ORDERED: predniSONE 10 MG TABLET PO SCH (09:00)
[2019-07-29] MEDS: APIXABAN 2.5 MG TAB PO SCH (09:13)
--- NOTE | 2019-07-29 10:14 | Discharge Summary ---
Date of Service date of admission - July 24, 2019 date of discharge - July 29, 2019 Admission HPI Per Admitting Provider 89 y/o M c/o worsening SOB. Pt states that he had a cough for the last week. This has lead to some SOB due to prolonged coughing, then SOB with exertion, and now SOB at rest. He had to sleep in the recliner the last 2 nights due to SOB while lying down. Pt was seen by PCP and started on a zpack, but he states this was no help and his sx are overall worse at this point. He has had no issues with PO intake. Pt denies fever, chest pain, abd pain, n/v/c/d, LE pain or swelling. He has never had SOB like this before. with recent URI that has since resolved without other tx. Pt states he was to start a new chemo medication as an inpt tomorrow. He follows with Dr. Mireles. Principal Diagnosis bilateral community-acquired pneumonia Discharge Exam Constitutional no acute distress and no altered mental status ENMT external ear and nose normal, oropharynx normal Respiratory normal respiratory effort, lungs clear to auscultation Auscultation: + diminished lung sounds (bases); no crackles and no wheezes Cardiovascular Rate/Rhythm: regular rhythm and + irregularly irregular Heart Sounds: normal S1, normal S2 and + murmur (1/6 systolic) Vessels: posterior tibial pulses present and dorsalis pedis pulses present; no JVD Extremities: + edema (localized right midfoot and ankle - much improved from previous) Gastrointestinal (Abdomen) Inspection/Auscultation: abdomen normal to inspection and normal bowel sounds Percussion/Palpation: abdomen soft and + splenomegaly (possible); abdomen nontender and no hepatomegaly Musculoskeletal improved synovitis of right knee, right ankle, right mid-foot, left ankle; nontender to palpation all of these regions except left ankle (minimal tenderness to palpation) Skin + rash (erythematous papules ON BACK only; improved from prior exam) Psychiatric A+Ox3, euthymic affect Discharge Data Allergies Allergy/AdvReac Type Severity Reaction Status Date / Time Penicillins Allergy Mild Hives Verified 07/24/19 17:01 milk Allergy Unknown GI SYMPTOMS Verified 07/24/19 17:01 Sulfa (Sulfonamide Allergy Unknown UNKNOWN Verified 07/24/19 17:01 Antibiotics) Consultations hemalogy/oncology - Papa Mireles MD PT, OT speech therapy Hospital Course (1) Bilateral pneumonia: b/l lower lobe. Either community-acquired vs aspiration. Likely former. Had been on IV cefepime starting 07/24, then transitioned to oral cefdinir on 07/27. He will finish his course of antibiotics with oral cefdinir at home. At time of discharge his lungs are clear with normal O2 sats in room air. Seen by speech therapy - no concerns of aspiration. Of note - flu testing and blood cultures were negative while hospitalized. (2) Polyarticular arthritis: Right knee, b/l ankle, right mid-foot. Most likely gout. 06/2019 - uric acid level ~9. Uric acid this admission 7.5. Sed rate was in 50s. He responded rapidly to colchicine and low-dose prednisone. 24 hours after these meds his symptoms and arthritis were much improved. He will take 6 more days of prednisone 10mg daily at discharge. He is at risk of future gout attacks due to his CKD as well as CLL. Consider allopurinol prophylaxis once current gout flare has resolved. (3) Acute on chronic systolic CHF (congestive heart failure): Received diuresis early in the stay. Was euvolemic at time of discharge. EF on prior echo 05/2019 was 40-45%. Global hypokinesis. Continue toprol xl. At discharge his low-dose MARILYN was HELD due to fluctuating renal function in the setting of CKD.. This can be re-addressed as an outpatient. He does follow with Gerri Pearl in CHF clinic. (4) Chronic lymphocytic leukemia: Followed by Dr Mireles at the [facility]. Elevated WBC is 2nd to CLL. Other cell lines were acceptable during the visit. Permission was granted by Dr Mireles to use low-dose prednisone for gout but blood counts need to be followed carefully while on such. He will follow-up with Dr Mireles post-d/c within 1-2 weeks. (5) Aortic stenosis: mild on echo 05/2019 (6) HLD (hyperlipidemia): continue home meds controlled while here (7) HTN (hypertension): MARILYN held at discharge due to fluctuating renal function in setting of CKD. Again this can be re-addressed as outpatient. (8) A-fib: cont renal-dosed eliquis cont toprol xl satisfactory rate control while hospitalized (9) Prostate carcinoma: continue home medication (bicalutamide) (10) CKD (chronic kidney disease) stage 3, GFR 30-59 ml/min: Baseline cr ~1.8 had mild superimposed acute kidney injury (peak Cr was 2.27) again MARILYN was held during the visit and at discharge will need repeat BMP within a week of discharge to ensure stability of electrolytes and renal function (11) Rash: irritant/contact dermatitis rash of back only due to sweating and exposure to the harsh chemicals used to clean the bedsheets. prednisone for suspected gout will help this . can also use triamcinolone cream 0.1% TID for 7-10 days in thin amounts. Total Time Total Time Spent Total Time Spent (In Minutes): 40 Total Time Includes: Examination of the Patient, Discharge Planning, Medication Reconciliation and Communication With Other Providers Discharge Plan Discharge Items Patient Disposition: Home - Home Health Services Reason For Visit: Pneumonia Discharge Diagnosis: 1. bilateral pneumonia - improved/resolved 2. acute on chronic congestive heart failure (fluid retention in lungs) 3. 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 CLL 5. chronic kidney disease 6. rash on back - irritant rash from the bedsheets - improving Activity: Resume your previous activity Activity Comment: as tolerated Non-emergency contact: Primary Care Provider, [employer] and Oncologist Call non-emergency contact if: you have any medication questions, your symptoms worsen, your pain is not controlled, your pain is worsening and you have a fever Follow-up/Referrals: Renea Pearl PA-C [Physician Nurse Ldr] - 08/03/19 3:00 pm () Papa Mireles [Physician] - 08/17/19 10:50 am Dodie Beal MD [Primary Care Provider] - 08/03/19 9:30 am (An appointment has been made on your behalf with your PCP. Please call the office with any questions or concerns. ) Diet: Heart Healthy Fluids: 1800ml (7 cups) Addtl Attending Provider Instructions: You were treated for the problems listed above in "discharge diagnoses." You improved nicely with antibiotics for the pneumonia, IV lasix for water retention, and prednisone for the suspected gout in your right knee, ankles, etc. The gout is occurring as a result of your chronic kidney disease and potentially your CLL. You are at risk of the gout happening again. Recommendations - 1. pneumonia - take 1 more dose of antibiotic on 07/30/19 then stop. DO NOT TAKE ANY ADDITIONAL Azithromycin (this was prescribed to you BEFORE the hospital stay). 2. congestive heart failure - * resume your lasix (furosemide) dose as previous; this is your water/fluid pill * HOLD/STOP your lisinopril for now; Ms Pearl or Dr Grajeda will be able to tell you down the line if it can be resumed * continue your metoprolol * weigh yourself EVERY morning on the same scale; notify Dr Grajeda's office if you gain more than 2-3 pounds over 1-2 days; weight gain is often a sign of fluid retention * know that the prednisone for the gout can cause weight gain/fluid retention 3. suspected gout - * take prednisone 10mg once daily for 6 more days starting 07/30/19 * talk to your family doctor and/or Dr Mireles about starting allopurinol - this is a medication to prevent gout attacks; we would typically start this in a few weeks when the joints are feeling better * again you are at risk of future gout attacks * see hand-out on foods that can contribute to gout problems 4. rash on back - * the prednisone should help this * use triamcinolone cream three times a day in thin amounts for 7-10 days then stop 5. home PT/OT to help with strength and conditioning 6. follow-up - see separate section Congestive Heart Failure Instructions - Call 911 and go to the Emergency Room if: * You have tightness or pain in your chest that does not go away with rest or Nitroglycerin * You are very short of breath even with rest Call your doctor if any of the following symptoms or problems start or get worse: * Shortness of breath or difficulty breathing * Wake up at night short of breath * Chest pain * Cough * Swelling of your hands, fee, or legs * More fatigued or tired with your normal activity * Palpitations - sudden fast heart beats WEIGHT * Weigh yourself every morning after using the bathroom. * Use the same scale. * Wear the same amount of clothing. * Write your weight down on your chart. * Call your doctor if you gain more than 2-3 pounds in 1-2 days. This is usually a sign of fluid/water retention. MEDICATIONS * Use this discharge instruction sheet for instructions. * Take your medications at the time your doctor ordered. * Do not skip a dose of your medicines. * If you miss a dose of medicine, take as soon as possible, but DO NOT DOUBLE A DOSE. * Read your medicine information when you get home. * Know all of the side effects of your medicine. * Call your doctor's office if you have any side effects. * Be sure all of your doctors know what medicine and herbs you take (including cold, flu, and herbal medicine). * Pain Medicine: If you do not get relief from your pain, please call your doctor for help. Take the following with you to your follow-up doctor appointments: * Weight Chart * Medication List * List of questions Do not drink excessive alcohol, beer or wine. Return to [facility] if - * you have worsening shortness of breath or chest pains * you develop severe diarrhea * you have worsening joint pains or swelling of the joints * you have fevers over 100.4 degrees * any other concerns Pending Studies at Discharge: No Stand-Alone Forms: My [facility], Smoking Cessation Medications and DC Order Prescriptions: New prednisone 10 mg Tablet 10 mg PO QAM 6 Days Qty: 6 RF: 0 triamcinolone acetonide 0.1 % Cream 1 applic EXT TID Qty: 30 RF: 0 cefdinir 300 mg Capsule 300 mg PO DAILY Qty: 1 RF: 0 Continued calcitriol 0.25 mcg capsule 0.25 mcg PO DAILY Qty: 90 RF: 1 furosemide 40 mg tablet 20 mg PO DAILY Qty: 30 RF: 2 metoprolol succinate [Toprol XL] 25 mg tablet extended release 24 hr 25 mg PO DAILY RF: 0 Eliquis 2.5 mg tablet 2.5 mg PO BID RF: 0 cyanocobalamin (vitamin B-12) 1,000 mcg/mL solution 1,000 mcg SUBCUT MONTHLY RF: 0 aspirin [Ecotrin Low Strength] 81 mg Tablet,Delayed Release (Dr/Ec) 81 mg PO DAILY RF: 0 atorvastatin 80 mg Tablet 80 mg PO DAILY RF: 0 bicalutamide [Casodex] 50 mg Tablet 50 mg PO QPM RF: 0 montelukast [Singulair] 10 mg Tablet 10 mg PO QPM RF: 0 cranberry 500 mg Capsule 0 mg PO DAILY RF: 0 nitroglycerin [Nitrostat] 0.4 mg Tablet, Sublingual 0.4 mg Sublingual UD PRN (Reason: Chest Pain) RF: 0 omeprazole 40 mg Capsule,Delayed Release(Dr/Ec) 40 mg PO QPM RF: 0 zolpidem [Ambien] 10 mg tablet 10 mg PO HS RF: 0 benzonatate 100 mg capsule 100 mg PO TID PRN (Reason: Cough) RF: 0 albuterol sulfate [Ventolin HFA] 90 mcg/actuation HFA aerosol inhaler 2 puff INHALATION Q4H PRN (Reason: Wheezing and SOB) RF: 0 Discontinued lisinopril 5 mg tablet 5 mg PO DAILY Qty: 30 RF: 0 azithromycin 250 mg tablet 250 mg PO DIRECTED RF: 0 Discharge Orders: Discharge Order (Routine); Ordered 07/29/19 Ordered By: Jatin Mcleod/Other Patient Handouts: Gout Eat Prevent Admission Data Admit Date/Time: 07/24/19 20:01 Attending Provider: Jatin Chappell Admit Provider: Mica Urena Primary Care Provider: Dodie Beal Other Providers: Mica Urena ; Papa Mireles ; [place] Other Interventions: Discharge Summary Assessment (RN) Last Done: 07/29/19 10:18 DC Date/Time DO NOT enter until pt leaves facility: 07/29/19 13:14
== END 2019-07-29 13:14 | disposition home health service (06) | DRG 193 ==
LOC: ED 15:40 → SUATTDRO 20:01 → 2N 20:01

== ENCOUNTER 2020-05-09 10:29 | Inpatient (IN) ==
[2020-05-09] MEDS ORDERED: ACETAMINOPHEN 1,000 MG/100 ML VIAL IV STA (11:13)
[2020-05-09] MEDS ORDERED: HYDROmorphone INJ 0.5 MG/0.5 ML SYR IV PRN (11:13)
[2020-05-09 11:50] LABS: Albumin Level 2.4 gm/dl (3.4-5.0); BUN Creatinine Ratio 15.5 (10-20); Calcium 8.1 mg/dl (8.5-10.1); Creatinine Clr Calc Pharmacy 31.9 ml/min; Est GFR (African American) 37.8; Est GFR (Non-African American) 32.7; Potassium 3.6 mmol/L (3.5-5.1)
[2020-05-09 11:54] LABS: Albumin Globulin Ratio 0.9 (0.9-2); Bilirubin,Total 0.5 mg/dl (0.2-1); Globulin 2.8 gm/dl (2.5-4.0); Total Protein 5.2 gm/dl (6.4-8.2); Troponin I 0.023 ng/ml (0-0.045)
[2020-05-09 12:03] LABS: Hematocrit (blood only) 24.5 % (42-52); Hemoglobin 7.6 g/dL (14.0-18.0); Mean Corpuscular Hemoglobin 32.8 pg (25-34); Mean Corpuscular Volume 105.6 fL (80-100); Mean Platelet Volume 9.8 fL (7.4-10.4); Platelet Count 180 K/uL (130-400); RDW Coefficient of Variation 15.8 % (11.5-14.5); RDW Standard Deviation 59.6 fL (36.4-46.3); Red Blood Count 2.32 M/uL (4.7-6.1); White Blood Count 54.28 K/uL (4.8-10.8)
--- NOTE | 2020-05-09 12:10 | CT Scan Report ---
CT head/brain wo con CLINICAL HISTORY: 89 years-old Male with fall, head trauma, + LOC. Acute head injury status post fal l with loss of consciousness TECHNIQUE: Multiple axial CT images of the head were obtained without contrast. A dose lowering tech nique was utilized adhering to the principles of ALARA. COMPARISON: Head CT 08/13/2014. FINDINGS: No acute intracranial hemorrhage, midline shift, intracranial mass, hydrocephalus, territorial ischem ia or abnormal extra-axial collection. Age-related involutional changes with ex vacuo ventriculomegal y. Cerebral vascular calcifications. Minimal white matter hypodensities are suggestive of chronic hanh rovascular ischemic disease. The calvarium is intact. Mastoid air cells are clear. Partially imaged mucoperiosteal thickening of the maxillary and ethmoid sinuses. Soft tissues are unremarkable. Prior bilateral lens replacement. IMPRESSION: No acute intracranial abnormality or calvarial fracture. ACT 112: Negative or not required by law. The above report was generated using voice recognition software. It may contain grammatical, syntax o r spelling errors. Electronically signed by: Jann Lombardo M.D. 05/09/2020 12:08 PM
--- NOTE | 2020-05-09 12:13 | CT Scan Report ---
CT OF THE CERVICAL SPINE CLINICAL HISTORY: Neck pain status post trauma COMPARISON STUDY: July 2014 CT DOSE: TECHNIQUE: CT scan of the cervical spine was performed from the skull base to the thoracic inlet. Tiffanie ges are reviewed in the axial, sagittal, and coronal planes. IV contrast was not administered for thi s examination. A dose lowering technique was utilized adhering to the principles of ALARA. FINDINGS: There is a large left pleural effusion. There is no apical pneumothorax The prevertebral soft tissues are normal. No acute fractures or traumatic subluxations are visualize d. There is slight reversal the normal cervical lordosis. There is C4-5 fusion. There is minor anterolis thesis of C3 on C4 likely degenerative. There is minor retrolisthesis of C5 on C6 likely degenerative . There is mild anterolisthesis of C7 on T1 degenerative. There are advanced multilevel degenerative changes. There are areas of spinal canal narrowing. IMPRESSION: 1. Advanced multilevel degenerative change. No acute fractures or traumatic subluxations identified 2. Left pleural effusion ACT 112: Negative or not required by law. Electronically signed by: Ricky Ling M.D. 05/09/2020 12:11 PM
[2020-05-09] MEDS ORDERED: SODIUM CHLORIDE 0.9% 250 ML IV PRN (12:15)
--- NOTE | 2020-05-09 12:21 | CT Scan Report ---
CT chest wo con CT DOSE: 1997.20 mGy.cm CLINICAL HISTORY: 89 years-old Male with Pt c/o left sided chest pain. Acute posterior neck left-juan ed chest pain. History of recent left-sided hydropneumothorax. TECHNIQUE: Multiaxial CT images of the chest were performed without contrast. A dose lowering techni que was utilized adhering to the principles of ALARA. COMPARISON: Chest CT 04/14/2020, CTA chest 03/08/2018. FINDINGS: Unremarkable thyroid. 3.60 x 0.7 cm ovoid hypodense lesion within the anterior mediastinum, anterior to the left brachiocephalic vein is unchanged dating back to at least 2018 suggestive of pr obable benign etiology. Moderate cardiomegaly with small pericardial effusion. Coronary artery calcif ications. No thoracic aortic aneurysm. Mild dilation of the main pulmonary artery may reflect pulmona ry artery hypertension. Mildly enlarged subcarinal lymph node, 1.3 cm. Mildly enlarged AP window lymp h node, 1.1 cm. These are favored to be reactive. Small to moderate right pleural effusion has slightly increased in size from comparison. Pleural drai nage catheter with distal tip terminating at the right lung base is unchanged. Moderate left pleural effusion has increased in size from comparison. Air is resolution of the previously noted small left pneumothorax component. Dependent left greater than right bibasilar opacities suggest atelectasis. Th ere is mild intralobular septal thickening. There are a few scattered calcified granulomata. Central airways are patent. Splenomegaly. Complex cyst with peripheral and septal calcifications are noted within the bilateral k idneys, partially imaged. There is moderate deep tissue edema/hemorrhage within the left shoulder ext ending into the left supraclavicular distribution secondary to an acute comminuted, and impacted prox imal left humeral fracture. Suspected subtle acute nondisplaced fracture of the lateral left seventh rib. Degenerative changes of the shoulders and spine. Chondrocalcinosis of the shoulders. IMPRESSION: 1. Acute, comminuted and impacted proximal left humeral fracture with moderate deep tissue edema/hemo rrhage of the left shoulder. 2. Probable subtle acute nondisplaced fracture of the lateral left seventh rib. No acute displaced ri b fracture or pneumothorax. 3. Moderate left pleural effusion has mildly increased in size from comparison. 4. Small to moderate right pleural effusion with right-sided pleural drainage catheter. 5. Cardiomegaly with mild intralobular septal thickening suggests pulmonary edema. 6. Additional findings as above. ACT 112: Negative or not required by law. Electronically signed by: Jann Lombardo M.D. 05/09/2020 12:19 PM
[2020-05-09 12:27] LABS: Basophils # (auto) 0.05 K/uL (0-0.2); Basophils % (auto) 0.1 %; Eosinophils # (auto) 0.13 K/uL (0-0.5); Eosinophils % (auto) 0.2 %; Immature Granulocytes # (auto) 0.09 K/uL (0.00-0.02); Immature Granulocytes % (auto) 0.2 %; Lymphocytes # (auto) 50.05 K/uL (1.2-3.4); Lymphocytes % (auto) 92.2 %; Macrocytosis Present; Monocytes # (auto) 0.58 K/uL (0.11-0.59); Monocytes % (auto) 1.1 %; Neutrophils # (auto) 3.38 K/uL (1.4-6.5); Neutrophils % (auto) 6.2 %; Ovalocytes 1+; Smudge Cells Present
--- NOTE | 2020-05-09 12:56 | XRay Report ---
XR shoulder LT min 2V routine, XR humerus LT 2V CLINICAL HISTORY: fall, L shoulder pain. Left arm pain. COMPARISON STUDY: None. FINDINGS: There is impacted left humeral neck fracture demonstrating mild medial angulation. The mid to distal left humerus is intact. No fractures within the left clavicle or scapula. Left shoulder sof t tissue swelling. No dislocation. IMPRESSION: Impacted left humeral neck fracture. No dislocation. ACT 112: Negative or not required by law. Electronically signed by: Jero Knight M.D. 05/09/2020 12:55 PM
--- NOTE | 2020-05-09 12:57 | XRay Report ---
XR femur RT 2V routine CLINICAL HISTORY: fall, right hip pain COMPARISON: None. DISCUSSION: There are postsurgical changes of a total right hip arthroplasty with a long femoral stem and greater trochanteric cerclage clamps. There is bony fragmentation along the inferior lateral mar gin of the cerclage clamps. This may be chronic. There are no definite acute fractures. There are no dislocations. Arthritic changes are present within the knee with chondrocalcinosis. There are vascula r calcifications. IMPRESSION: Postsurgical changes of a total right hip arthroplasty with a longstem femoral component. No acute fractures or dislocations. 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 ACT 112: Negative or not required by law. Electronically signed by: Ricky Ling M.D. 05/09/2020 12:55 PM
--- NOTE | 2020-05-09 12:58 | XRay Report ---
XR pelvis 1-2V routine CLINICAL HISTORY: Right hip pain status post trauma COMPARISON: None. DISCUSSION: There are postsurgical changes of a total right hip arthroplasty. Fragmentation along the inferior margin of the greater trochanteric claw is likely chronic. No acute fractures or dislocatio ns are visualized. There are surgical clips present within the pelvis. IMPRESSION: 1. Postsurgical changes of a total right hip arthroplasty 2. No acute fractures or dislocations identified ACT 112: Negative or not required by law. Electronically signed by: Ricky Ling M.D. 05/09/2020 12:56 PM
--- NOTE | 2020-05-09 13:02 | XRay Report ---
XR ankle RT min 3V routine, XR foot RT min 3V routine CLINICAL HISTORY: fall, right ankle pain. Right foot pain. COMPARISON STUDY: None. FINDINGS: Small ossific density adjacent to the medial malleolus consistent with old avulsion injurie s. No acute fracture or dislocation within the right ankle. Soft tissue swelling within the right ank le. Soft tissue swelling at the first MTP joint. Slightly distracted fracture at the lateral base of the right first toe proximal phalanx. This demonstrates up to 2 mm of distraction. This extends to th e articular surface. The bones are osteopenic. The Lisfranc joint is intact. Vascular calcifications are noted. IMPRESSION: 1. No acute fracture or dislocation within the right ankle. 2. Slightly distracted fracture at the base of the right first toe proximal phalanx. ACT 112: Negative or not required by law. Electronically signed by: Jero Knight M.D. 05/09/2020 1:01 PM
--- NOTE | 2020-05-09 13:33 | Electrocardiogram Report ---
Test Reason : Blood Pressure : / mmHG Vent. Rate : 083 BPM Atrial Rate : 032 BPM P-R Int : 000 ms QRS Dur : 102 ms QT Int : 422 ms P-R-T Axes : 000 -42 -12 degrees QTc Int : 495 ms Atrial fibrillation with premature ventricular or aberrantly conducted complexes Left axis deviation Poor R wave progression, consider anterior FL vs. lead placement vs. LVH Abnormal ECG When compared with ECG of 14-APR-2020 10:14, No significant change Confirmed by Zac Stuart ([id number]) on 05/09/2020 1:33:17 PM Referred By: REFERRED SELF Confirmed By:Zac Stuart
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
--- NOTE | 2020-05-09 15:38 | Emergency Department Note ---
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 Jero Knight M.D. 05/09/2020 12:55 PM Dictated: 05/09/20 1253 Transcribed: 05/09/20 [facility] [place], [place] [phone] XRay Report Patient: DAREN SALGADO Date: 05/09/20 MR#: [id number]: [address] Acct ID:[id number]: [address] Date: 1930[facility] Zip: [place] [address] Age: 89Location: ED Sex: MRoom/Bed: Att Phy:Diagnosis: FALL, SHOULDER PAIN Rebeca Phy: Lani Donato MDServ Date: 05/09/20 Fam Phy:Interpreting Phy: Ricky Ling MD Admit Phy: Ordering Phy: Megan Hernandez DO cc: ~ XR pelvis 1-2V routine CLINICAL HISTORY: Right hip pain status post trauma COMPARISON: None. DISCUSSION: There are postsurgical changes of a total right hip arthroplasty. Fragmentation along the inferior margin of the greater trochanteric claw is likely chronic. No acute fractures or dislocations are visualized. There are surgical clips present within the pelvis. IMPRESSION: 1. Postsurgical changes of a total right hip arthroplasty 2. No acute fractures or dislocations identified ACT 112: Negative or not required by law. Electronically signed by: Ricky Ling M.D. 05/09/2020 12:56 PM Dictated: 05/09/20 1256 Transcribed: 05/09/20 1256 [place], [place] [phone] XRay Report Patient: DAREN SALGADO Date: 05/09/20 MR#: [id number]: [address] Acct ID:[id number]: [address] Date: 1930[facility] Zip: [place] [address] Age: 89Location: ED Sex: MRoom/Bed: Att Phy:Diagnosis: FALL, SHOULDER PAIN Rebeca Phy: Lani Donato, LELOervice Date: 05/09/20 Fam Phy:Interpreting Phy: Jero Knight MD Admit Phy: Ordering Phy: Megan Hernandez, cc: ~ XR shoulder LT min 2V routine, XR humerus LT 2V CLINICAL HISTORY: fall, L shoulder pain. Left arm pain. COMPARISON STUDY: None. FINDINGS: There is impacted left humeral neck fracture demonstrating mild medial angulation. The mid to distal left humerus is intact. No fractures within the left clavicle or scapula. Left shoulder soft tissue swelling. No dislocation. IMPRESSION: Impacted left humeral neck fracture. No dislocation. ACT 112: Negative or not required by law. Electronically signed by: Jero Knight M.D. 05/09/2020 12:55 PM Dictated: 05/09/20 1253 Transcribed: 05/09/20 1253 [facility], [place] [phone] CT Scan Report Patient: DAREN SALGADO [facility] Date: 05/09/20 MR#: [id number]: [address] Acct ID:[id number]: [address] Date: 1930[facility] Zip: [place] [address] Age: 89Location: ED Sex: MRoom/Bed: Att Phy:Diagnosis: FALL, SHOULDER PAIN Rebeca Phy: Lani Donato, MDService Date: 05/09/20 Fam Phy:Interpreting Phy: Leoncio Lombardo Admit Phy: Ordering Phy: Tremayne Bess MD cc: ~ CT chest wo con CT DOSE: 1997.20 mGy.cm CLINICAL HISTORY: 89 years-old Male with Pt c/o left sided chest pain. Acute posterior neck left-sided chest pain. History of recent left-sided hydropneumothorax. TECHNIQUE: Multiaxial CT images of the chest were performed without contrast. A dose lowering technique was utilized adhering to the principles of ALARA. COMPARISON: Chest CT 04/14/2020, CTA chest 03/08/2018. FINDINGS: Unremarkable thyroid. 3.60 x 0.7 cm ovoid hypodense lesion within the anterior mediastinum, anterior to the left brachiocephalic vein is unchanged dating back to at least 2017 suggestive of probable benign etiology. Moderate cardiomegaly with small pericardial effusion. Coronary artery calcifications. No thoracic aortic aneurysm. Mild dilation of the main pulmonary artery may reflect pulmonary artery hypertension. Mildly enlarged subcarinal lymph node, 1.3 cm. Mildly enlarged AP window lymph node, 1.1 cm. These are favored to be reactive. Small to moderate right pleural effusion has slightly increased in size from comparison. Pleural drainage catheter with distal tip terminating at the right lung base is unchanged. Moderate left pleural effusion has increased in size from comparison. Air is resolution of the previously noted small left pneumothorax component. Dependent left greater than right bibasilar opacities suggest atelectasis. There is mild intralobular septal thickening. There are a few scattered calcified granulomata. Central airways are patent. Splenomegaly. Complex cyst with peripheral and septal calcifications are noted within the bilateral kidneys, partially imaged. There is moderate deep tissue edema/hemorrhage within the left shoulder extending into the left supraclavicular distribution secondary to an acute comminuted, and impacted proximal left humeral fracture. Suspected subtle acute nondisplaced fracture of the lateral left seventh rib. Degenerative changes of the shoulders and spine. Chondrocalcinosis of the shoulders. IMPRESSION: 1. Acute, comminuted and impacted proximal left humeral fracture with moderate deep tissue edema/hemorrhage of the left shoulder. 2. Probable subtle acute nondisplaced fracture of the lateral left seventh rib. No acute displaced rib fracture or pneumothorax. 3. Moderate left pleural effusion has mildly increased in size from comparison. 4. Small to moderate right pleural effusion with right-sided pleural drainage catheter. 5. Cardiomegaly with mild intralobular septal thickening suggests pulmonary hakeem a. 6. Additional findings as above. ACT 112: Negative or not required by law. Electronically signed by: Jann Lombardo M.D. 05/09/2020 12:19 PM Dictated: 05/09/201207 Transcribed: 05/09/201207 ECG Data Attestation: I personally reviewed and interpreted this ECG as follows: Indication: + weakness Rate (beats per minute): 83 Rhythm: + atrial fibrillation ECG Intervals/blocks: + Normal QT-c (495) ECG [place]: + Left axis deviation ECG ST segments: no ST depression and no ST elevation ECG Findings: + PVCs Comparison ECG Date: from (04/14/2020) Change: no significant change MDM Narrative Patient was seen and evaluated as above in room C1. Review was performed of nursing notes and vital signs. I did review pertinent previous visits and patient history. After obtaining a thorough history and physical examination the above work up was performed. This is an 89-year-old male who presents emergency department after fall. Patient is complaining of chest wall pain as well as toe pain and shoulder pain. He has a broken toe as well as broken humeral head. He also has a rib fracture. The patient was given pain medication here in the emergency department. The patient's blood count was also found to be low. He did sign a blood consent which was placed on the chart and given 1 crossed unit of packed red blood cells. With the patient's multiple comorbidities I believe he should be admitted to the hospital. I did discuss the case with the hospitalist service who did agree to admit the patient. An order was placed for continuous cardiac monitoring. The monitor shows a rate of 83 with Afib rhythm. The patient was evaluated during the global COVID-19 pandemic, and that diagnosis was suspected/considered upon their initial presentation. Their evaluation, treatment and testing was consistent with current guidelines for patients who present with complaints or symptoms that may be related to COVID- 19. Impression & Plan Fall, Humeral fracture, Rib fractures, Fracture of right great toe, CKD (chronic kidney disease) stage 4, GFR 15-29 ml/min, Acute blood loss anemia Discharge Plan Visit Data Chief Complaint: Shoulder Pain ED Provider: Tremayne Bess ED Midlevel Provider: Megan Hernandez Discharge Problem: Fall, Humeral fracture, Rib fractures, Fracture of right great toe, CKD (chronic kidney disease) stage 4, GFR 15-29 ml/min, Acute blood loss anemia Patient Disposition: Admitted As Inpatient Discharge Instructions Interventions: ED Discharge Assessment Last Done: 05/09/20 16:23 Discharge Problem: Fall Qualifiers: Encounter type: initial encounter Qualified Code(s): W19.XXXA - Unspecified fal l, initial encounter Humeral fracture Qualifiers: Encounter type: initial encounter Humerus Location: surgical neck Fracture type: closed Fracture morphology: unspecified fracture morphology Fracture alignment: nondisplaced Laterality: left Qualified Code(s): S42.215A - Unspecified nondisplaced fracture of surgical neck of left humerus, initial encounter for closed fracture Rib fractures Qualifiers: Encounter type: initial encounter Rib fracture type: single rib Fracture type: closed Laterality: left Qualified Code(s): S22.32XA - Fracture of one rib, left side, initial encounter for closed fracture Fracture of right great toe Qualifiers: Encounter type: initial encounter Fracture type: closed Phalanx: unspecified phalanx Fracture alignment: nondisplaced Qualified Code(s): S92.404A - Nondisplaced unspecified fracture of right great toe, initial encounter for closed fracture
[2020-05-09] MEDS ORDERED: MoRPHine SULFATE 2 MG/ML CARP IV PRN (17:58)
[2020-05-09] MEDS ORDERED: MoRPHine SULFATE 4 MG/ML 1 ML CARP\\VIAL IV PRN (17:58)
[2020-05-09] MEDS ORDERED: ONDANSETRON 4 MG OD TAB PO PRN (18:09)
[2020-05-09] MEDS ORDERED: oxyCODONE HCL IR 5 MG TAB (IMMEDIATE RELEASE) PO PRN (18:09)
[2020-05-09] MEDS ORDERED: ALBUTEROL HFA 8 GM INHALER INH PRN (19:00)
[2020-05-09] MEDS: LIDOCAINE 5% 1 PATCH TD SCH (20:38)
[2020-05-09] MEDS: FUROSEMIDE 40 MG TAB PO SCH (20:56)
[2020-05-09] MEDS: ATORVASTATIN 40 MG TAB PO SCH (20:56)
[2020-05-09] MEDS: FAMOTIDINE 40 MG TABLET PO SCH (20:56)
[2020-05-09] MEDS: SENNA 8.6 MG TAB PO SCH (20:57)
[2020-05-09] MEDS: PANTOprazole 40 MG TAB PO SCH (20:57)
[2020-05-09] MEDS: MONTELUKAST SODIUM 10 MG TABLET PO SCH (20:57)
[2020-05-09] MEDS: BICALUTAMIDE 50 MG TAB PO SCH (21:00)
[2020-05-09] MEDS: traMADol HCL 50 MG TABLET PO PRN (21:02)
[2020-05-09] MEDS: ZOLPIDEM TARTRATE 10 MG TAB PO SCH (22:24)
[2020-05-09] MEDS: ACETAMINOPHEN 500 MG TAB PO PRN (22:24)
[2020-05-10] MEDS: traMADol HCL 50 MG TABLET PO PRN ×3 (03:05→20:21)
--- NOTE | 2020-05-10 06:29 | Emergency Department Note ---
General (ED) Blank Date of Service May 09, 2020 ED Visit Note I personally saw, interviewed, and examined the patient. Patient's case was discussed with , ED attending, and I assisted with MDM. Please see attending documentation for full details. Resident Activity Tracking Resident Involvement: Resident Care Provided Care Provided: Adult ED : Fall Qualifiers: Encounter type: initial encounter Qualified Code(s): W19.XXXA - Unspecified fall, initial encounter Humeral fracture Qualifiers: Encounter type: initial encounter Humerus Location: surgical neck Fracture type: closed Fracture morphology: unspecified fracture morphology Fracture alignment: nondisplaced Laterality: left Qualified Code(s): S42.215A - Unspecified nondisplaced fracture of surgical neck of left humerus, initial encounter for closed fracture Rib fractures Qualifiers: Encounter type: initial encounter Rib fracture type: single rib Fracture type: closed Laterality: left Qualified Code(s): S22.32XA - Fracture of one rib, left side, initial encounter for closed fracture Fracture of right great toe Qualifiers: Encounter type: initial encounter Fracture type: closed Phalanx: unspecified phalanx Fracture alignment: nondisplaced Qualified Code(s): S92.404A - Nondisplaced unspecified fracture of right great toe, initial encounter for closed fracture
[2020-05-10 08:16] LABS: Hematocrit (blood only) 28.3 % (42-52); Hemoglobin 8.6 g/dL (14.0-18.0); Mean Corpuscular Hemoglobin 31.5 pg (25-34); Mean Corpuscular Hgb Conc 30.4 g/dL (32-36); Mean Corpuscular Volume 103.7 fL (80-100); Platelet Count 187 K/uL (130-400); RDW Coefficient of Variation 17.8 % (11.5-14.5); RDW Standard Deviation 66.7 fL (36.4-46.3); Red Blood Count 2.73 M/uL (4.7-6.1); White Blood Count 61.08 K/uL (4.8-10.8)
[2020-05-10 08:43] LABS: BUN Creatinine Ratio 14.7 (10-20); Calcium 8.3 mg/dl (8.5-10.1); Creatinine Clr Calc Pharmacy 27.9 ml/min; Est GFR (African American) 32.2; Est GFR (Non-African American) 27.8; Potassium 3.9 mmol/L (3.5-5.1)
[2020-05-10] MEDS: FLUTICASONE PROPIONATE NA SPR 16 GM BTL SCH (08:55)
[2020-05-10] MEDS: FUROSEMIDE 40 MG TAB PO SCH ×2 (08:56→20:01)
[2020-05-10] MEDS: allopurinoL 100 MG TAB PO SCH (08:56)
[2020-05-10] MEDS: METOPROLOL SUCC 25MG EXT REL TAB PO SCH (08:56)
[2020-05-10] MEDS: ATORVASTATIN 40 MG TAB PO SCH ×2 (08:56→20:02)
[2020-05-10] MEDS ORDERED: CALCITRIOL 0.25 MCG CAPSULE PO SCH (09:00)
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
--- NOTE | 2020-05-10 10:27 | Consultation Report ---
DATE OF CONSULTATION: 05/10/2020 REASON FOR CONSULTATION: An 89-year-old gentleman with longstanding history of chronic lymphocytic leukemia, admitted to [facility] status post fall. HISTORY OF PRESENT ILLNESS: Mr. Eddy is a very pleasant 89-year-old gentleman, very familiar with [facility] previously under the care of Dr. Papa Mireles and more recently our client success manager have been following him for chronic lymphocytic leukemia. This gentleman apparently had a fall in his kitchen witnessed by his . He denies any lightheadedness, dizziness or faint feeling prior to fall. He was supposed to start oral chlorambucil and previously treated with ibrutinib. According to Mr. Eddy he has been off therapy for about 2 months. During that time, he has developed refractory right-sided pleural effusion necessitating a PleurX catheter placement. According to Mr. Eddy cytology from previously removed pleural fluid did contain leukemic cells. Apparently again he fell at home. He struck his face, fracturing the left humerus, left rib and right great toe, proximal phalanx to be specific. He had a significant drop in hemoglobin and thus received 1 unit of packed RBCs. Apparently on admission Mr. Eddy wished to speak to me directly about his current treatment. He did not voice any concerns at bedside this morning. Nonetheless, will discuss his case further with Dr. Hill when he returns this coming Thursday. PAST MEDICAL HISTORY: Aortic stenosis, asthma, atrial fibrillation, coronary artery disease, chronic diastolic CHF, chronic kidney disease, chronic lymphocytic leukemia, gastroesophageal reflux disease, history of colorectal cancer, history of bladder cancer, history of myocardial infarction, left pleural effusion, prostate cancer, recurrent right pleural effusion. PAST SURGICAL HISTORY: History of total right hip arthroplasty, history of appendectomy, history of herniorrhaphy, status post coronary artery stenting, status post prostatectomy. MEDICATIONS: Bicalutamide 50 mg p.o. daily, cranberry dose unknown, Singulair 10 mg p.o. daily, nitroglycerin 0.4 mg sublingual q.5 minutes sublingual p.r.n., omeprazole 40 mg p.o. daily, Ambien 10 mg p.o. at bedtime, Eliquis 2.5 mg p.o. b.i.d., metoprolol 25 mg p.o. daily, cyanocobalamin 1000 mcg intramuscularly q. month, albuterol sulfate 2 puffs inhaled q. 4 hours p.r.n., Lasix 40 mg p.o. b.i.d., tramadol 50 mg p.o. q. 6 hours p.r.n., famotidine 40 mg p.o. at bedtime, Flonase 1 spray intranasally daily, oxycodone 5 mg p.o. q. 6 hours p.r.n., Senokot 8.6 mg p.o. at bedtime, allopurinol 200 mg p.o. daily, atorvastatin 40 mg p.o. b.i.d., calcitriol 0.25 mcg p.o. every other day, diclofenac sodium gel topical q.i.d. p.r.n., ibuprofen 800 mg p.o. t.i.d., naproxen 500 mg p.o. 12 hours p.r.n., Zofran 4 mg p.o. q. 4 hours p.r.n. ALLERGIES: SULFA, PENICILLINS AND MILK. SOCIAL HISTORY: The patient lives with his spouse. He is retired. He is a nonsmoker, nondrinker, non-illicit drug user. FAMILY HISTORY: Noncontributory. REVIEW OF SYSTEMS: As per HPI, status post fall resulting in a fractured proximal humerus. He has got scattered associated ecchymoses. No fevers, chills or sweats. He is not anorexic or losing weight. SKIN: No rashes or lesions. No history of dermatoses. HEENT: Negative for headaches, lightheadedness or dizziness. No visual or hearing deficits. No sinus symptoms, sore throat or dysphagia. LYMPH: Positive history of CLL. CARDIAC: Positive history of coronary artery disease. No current angina or palpitations. PULMONARY: Negative for COPD. He is not short of breath, dyspneic or hypopneic. No cough or hemoptysis. GASTROINTESTINAL: Negative for abdominal pain, nausea, vomiting, diarrhea or constipation, hematochezia or melena stools. GENITOURINARY: No hematuria, dysuria, urinary incontinence. MUSCULOSKELETAL: As per HPI. NEUROLOGIC: Negative for seizure, stroke, or migraine headache. HEMATOLOGIC: Positive for lymphocytosis associated with CLL and persistent anemia. PHYSICAL EXAMINATION: GENERAL: Very pleasant 89-year-old elderly gentleman, awake, alert and appropriate, in no acute distress. VITAL SIGNS: Temperature 36.6, pulse 89, respiratory rate 16, blood pressure 137/71. SKIN: Warm, dry, noncyanotic without petechia, rash or ecchymosis. HEENT: Head is atraumatic, normocephalic. Eyes: PERRLA, EOMI. Sclerae nonicteric. No conjunctival injection. Nares are patent without rhinorrhea or discharge. Throat clear. Tongue midline. Mucous membranes are moist. No buccal lesions or ulcerations. NECK: Supple without JVD or thyromegaly. HEART: Regular rate and rhythm. No clicks, rubs, murmurs or gallops. LUNGS: Blunted breath sounds in the right posterior base predominantly. ABDOMEN: Soft, nontender, nondistended, without palpable hepatosplenomegaly. EXTREMITIES: No calf tenderness or swelling. No clubbing, cyanosis or edema. Pulses and strength are equal in all 4 quadrants. NEUROLOGICALLY: He is awake, alert and oriented x3. Cranial nerves grossly intact. LABORATORY DATA: WBC count 54,280, hemoglobin 7.6, platelet count 180,000. Sodium 143, potassium 3.6, chloride 109, carbon dioxide 28, creatinine 1.81, BUN 28, albumin 2.4. IMPRESSION: 1. Proximal humeral fracture. 2. Rib fractures. 3. Chronic diastolic CHF. 4. Chronic lymphocytic leukemia. 5. Chronic kidney disease. PLAN: I have been asked to visit with Mr. Eddy who unfortunately was admitted a day ago status post fall resulting in fracture of proximal left humerus. This gentleman is well known to [facility], previously managed by Dr. Mireles and was on ibrutinib up until a couple months ago when he developed malignant pleural effusions requiring thoracenteses and subsequent PleurX catheter placement. More recently has been seen by our client success manager, Dr. Hill saw him last and has decided to start him on chlorambucil. This gentleman was in the midst of picking up the new prescription and thus has not started therapy as of yet. Dr. Hill will return next week and I will alert him to Mr. Eddy's admission to hospital. Would hold treatment for now and focus on pain control and rehabilitation. We will plan to see him in the office. Agree with transfusional support, maintain hemoglobin of 8 grams per deciliter or higher. We will continue to follow him periodically. I have nothing further to add at this point. Thank you very much for allowing me to participate in his care.
[2020-05-10] MEDS: ACETAMINOPHEN 500 MG TAB PO PRN (12:47)
--- NOTE | 2020-05-10 18:32 | Hospitalist Progress Note ---
Date of Service May 10, 2020 Assessment & Plan (1) Fall: Presented with a mechanical fall resulting in left humerus fracture, left sided rib fracture and right great toe proximal phalanx fracture along with nasal abrasion Will need rehab (2) Humeral fracture: Impacted left humeral neck fracture with concern for possible hematoma given the fact that he is on Eliquis -explains his acute blood loss anemia. Orthopedics consult appreciated-sling to the left upper extremity, nonweightbearing to the left upper extremity, icing He may loosen the arm sling to do gentle range of motion at the left elbow and wrist Follow-up with orthopedic surgery Dr. Garland in 10 to 14 days for repeat x-rays Pain control as needed with tramadol, oxycodone or IV morphine (3) Rib fractures: Possible subtle acute nondisplaced fracture of the lateral left seventh rib No displaced fracture or pneumothorax seen on CT scan of the chest -Pain control as needed (4) Fracture of right great toe: Right great toe is fractured the proximal phalanx Appreciate orthopedic surgery consultation-no surgery and was given a firm cast shoe to the right foot. If he can maintain heel weightbearing that would be beneficial but not sure if he will be able to. He could possibly use a hemiwalker for the right side to assist with ambulation if needed Plan follow-up with Dr. Vasquez in 10 to 14 days for further x-rays (5) Chronic diastolic CHF (congestive heart failure): Patient's placed on a low-salt diet continues on his diuretic therapy of Lasix 40 twice daily and metoprolol succinate 25 (6) Atrial fibrillation: Patient is rate controlled with beta-grazyna Anticoagulation with Eliquis is held at this time given his acute blood loss anemia and acute fractures Plan to restart if hemoglobin remains stable tomorrow (7) CAD (coronary artery disease): patient had cardiac catheterization 2 years ago opting for medical management Patient is on atorvastatin and metoprolol Holding Eliquis (8) CLL (chronic lymphocytic leukemia): Patient's white blood cell count is 61,000 although he has been higher than this in the past. His hemoglobin does run in the 8 to 9 g range chronically but was lower at 7.6 upon admission secondary to acute blood loss anemia from fracture Appreciate oncology consultation He was to start chlorambucil for treatment on the day of his fall-this will be placed on hold for now as per oncology recommendation Follow CBC in the morning and transfuse as needed (9) Chronic kidney disease, stage III (moderate): CKD stage III-IV Creatinine slightly above baseline today at 2.07 Continue to orally hydrate Okay to continue home furosemide Continue calcitriol -Avoid nephrotoxins -renally dose meds when appropriate -follow BMP (10) CKD (chronic kidney disease) stage 4, GFR 15-29 ml/min: (11) Recurrent right pleural effusion: With Pleurx catheter in place 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 Ordered to drain Pleurx catheter for 500 mL every other day starting today Follows with pulmonology for this (12) Acute blood loss anemia: Hemoglobin dropped to 7.6 as above secondary to bleeding from hematoma from fracture in the shoulder while on Eliquis He has a 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 Has some pain in the shoulder and the toe that are fractured and some pain in the left-sided ribs. Otherwise he is tolerating p.o. Denies any nausea or vomiting. Denies headache. Denies cough or shortness of breath, no chest pain other than the rib pain. He is making urine and has a condom catheter in place. He has not moved his bowels since yesterday. His Pleurx catheter he reminded us was supposed to have been drained yesterday. This was drained today for a little over 500 mL. I discussed his care with the orthopedics PA Review of Systems Review of Systems: All systems reviewed & are unremarkable except as noted in HPI & below Physical Exam Constitutional: WD/WN, vitals as above Eyes: + anicteric sclerae ENMT: Nose: + external nose abnormality (Small superficial abrasion on the bridge of the nose) Neck: trachea midline, no thyromegaly Respiratory: normal respiratory effort; no cough Auscultation: + diminished lung sounds (At the bases bilaterally); no crackles and no wheezes Cardiovascular: Rate/Rhythm: regular rate and + irregularly irregular Heart Sounds: no murmur Extremities: no edema Chest (Breasts): Chest: normal inspection of chest Gastrointestinal (Abdomen): normal bowel sounds, soft, nontender, no hepatosplenomegaly Musculoskeletal: Extremities: + extremities abnormal to inspection (Left shoulder with large amount of edema and ecchymosis, positive tenderness palpation over the proximal humerus; right great toe with edema and ecchymosis, positive tenderness to palpation over the proximal phalanx), no cyanosis and no clubbing Skin: no rashes, warm and dry Neurologic: moves all extremities and awake; no focal motor deficits Psychiatric: A+Ox3, euthymic affect Lymphatic: no lymphedema Results & Data Results & Data ([facility]) Vital Signs (Past 12 Hours) Vital Signs Temp Pulse Pulse Resp BP Pulse Ox 05/10/20 15:16 36.4 C L 74 16 113/68 98 05/10/20 08:00 36.7 C 94 H 18 132/69 98 Laboratory Results 05/10/20 05/10/20 Range/Units 07:28 07:28 WBC 61.08 H* (4.8-10.8) K/uL RBC 2.73 L (4.7-6.1) M/uL Hgb 8.6 L (14.0-18.0) g/dL Hct 28.3 L (42-52) % MCV 103.7 H (80-100) fL MCH 31.5 (25-34) pg MCHC 30.4 L (32-36) g/dL RDW Std Deviation 66.7 H (36.4-46.3) fL RDW Coeff of Kristen 17.8 H (11.5-14.5) % Plt Count 187 (130-400) K/uL MPV 10.0 (7.4-10.4) fL Sodium 143 (136-145) mmol/L Potassium 3.9 (3.5-5.1) mmol/L Chloride 110 H (98-107) mmol/L Carbon Dioxide 29 (21-32) mmol/L Anion Gap 4.0 (3-11) BUN 31 H (7-18) mg/dl Creatinine 2.07 H (0.6-1.4) mg/dl Est Cr Clr Drug Dosing 27.9 ml/min Est GFR ( Amer) 32.2 Est GFR (Non-Af Amer) 27.8 BUN/Creatinine Ratio 14.7 (10-20) Glucose 99 (70-99) mg/dl Calcium 8.3 L (8.5-10.1) mg/dl PG Care Time/CCT Total # of Minutes Spent Total Time Spent with Patient: Total time spent is greater than 50% in coordination of care (as documented) at patient's floor/unit and/or counseling patient: Coding Level of Care Code 79099 Subseq Hosp Care Lvl 3 Diagnoses Fall W19.XXXA Humeral fracture S42.309A Rib fractures S22.39XA Fracture of right great toe S92.401A Chronic diastolic CHF (congestive heart failure) I50.32 Atrial fibrillation I48.91 CAD (coronary artery disease) I25.10 CLL (chronic lymphocytic leukemia) C91.10 Chronic kidney disease, stage III (moderate) N18.30 CKD (chronic kidney disease) stage 4, GFR 15-29 ml/min N18.4 Recurrent right pleural effusion J90 Acute blood loss anemia D62 Aortic stenosis I35.0 Cardiac valve disease etiology: etiology unspecified DVT prophylaxis Z29.9 (1) Aortic stenosis Cardiac valve disease etiology: etiology unspecified Qualified Code(s): I35.0 - Nonrheumatic aortic (valve) stenosis
[2020-05-10] MEDS: LIDOCAINE 5% 1 PATCH TD SCH (19:59)
[2020-05-10] MEDS: SENNA 8.6 MG TAB PO SCH (20:01)
[2020-05-10] MEDS: MONTELUKAST SODIUM 10 MG TABLET PO SCH (20:01)
[2020-05-10] MEDS: BICALUTAMIDE 50 MG TAB PO SCH (20:02)
[2020-05-10] MEDS: FAMOTIDINE 40 MG TABLET PO SCH (20:02)
[2020-05-10] MEDS: PANTOprazole 40 MG TAB PO SCH (20:03)
[2020-05-10] MEDS: ZOLPIDEM TARTRATE 10 MG TAB PO SCH (20:20)
[2020-05-11 06:29] LABS: Hematocrit (blood only) 27.9 % (42-52); Hemoglobin 8.4 g/dL (14.0-18.0); Mean Corpuscular Hemoglobin 31.5 pg (25-34); Mean Corpuscular Hgb Conc 30.1 g/dL (32-36); Mean Corpuscular Volume 104.5 fL (80-100); Mean Platelet Volume 9.7 fL (7.4-10.4); Platelet Count 195 K/uL (130-400); RDW Coefficient of Variation 17.4 % (11.5-14.5); RDW Standard Deviation 65.8 fL (36.4-46.3); Red Blood Count 2.67 M/uL (4.7-6.1); White Blood Count 59.62 K/uL (4.8-10.8)
[2020-05-11 06:57] LABS: BUN Creatinine Ratio 14.9 (10-20); Creatinine Clr Calc Pharmacy 24.8 ml/min; Est GFR (African American) 27.9; Est GFR (Non-African American) 24.1; Potassium 3.9 mmol/L (3.5-5.1)
[2020-05-11] MEDS: ATORVASTATIN 40 MG TAB PO SCH (07:45)
[2020-05-11] MEDS: allopurinoL 100 MG TAB PO SCH (07:45)
[2020-05-11] MEDS: FUROSEMIDE 40 MG TAB PO SCH (07:46)
[2020-05-11] MEDS: FLUTICASONE PROPIONATE NA SPR 16 GM BTL SCH (07:46)
[2020-05-11 08:39] LABS: Ferritin 338.6 ng/ml (8-388)
[2020-05-11] MEDS: METOPROLOL SUCC 25MG EXT REL TAB PO SCH (09:10)
[2020-05-11] MEDS: traMADol HCL 50 MG TABLET PO PRN (10:24)
[2020-05-11] MEDS ORDERED: IRON SUCROSE 300 MG in SODIUM CHLORIDE 0.9% 250 ML IV ONE (11:00)
[2020-05-11] MEDS: ACETAMINOPHEN 500 MG TAB PO PRN (16:27)
--- NOTE | 2020-05-11 17:32 | Hospitalist Progress Note ---
Date of Service May 11, 2020 Assessment & Plan (1) Fall: Presented with a mechanical fall resulting in left humerus fracture, left sided rib fracture and right great toe proximal phalanx fracture along with nasal abrasion Will need rehab (2) Humeral fracture: Impacted left humeral neck fracture with concern for possible hematoma given the fact that he is on Eliquis -explains his acute blood loss anemia. Orthopedics consult appreciated-sling to the left upper extremity, nonweightbearing to the left upper extremity, icing He may loosen the arm sling to do gentle range of motion at the left elbow and wrist Follow-up with orthopedic surgery Dr. Garland in 10 to 14 days for repeat x-rays Pain control as needed with tramadol, oxycodone or IV morphine (3) Rib fractures: Possible subtle acute nondisplaced fracture of the lateral left seventh rib No displaced fracture or pneumothorax seen on CT scan of the chest -Pain control as needed (4) Fracture of right great toe: Right great toe is fractured the proximal phalanx Appreciate orthopedic surgery consultation-no surgery and was given a firm cast shoe to the right foot. If he can maintain heel weightbearing that would be beneficial but not sure if he will be able to. He could possibly use a hemiwalker for the right side to assist with ambulation if needed Plan follow-up with Dr. Vasquez in 10 to 14 days for further x-rays (5) Chronic diastolic CHF (congestive heart failure): Patient's placed on a low-salt diet continues on his diuretic therapy of Lasix 40 twice daily and metoprolol succinate 25 (6) Atrial fibrillation: Patient is rate controlled with beta-grazyna Anticoagulation with Eliquis is held at this time given his acute blood loss anemia and acute fractures Plan to restart if hemoglobin remains stable tomorrow (7) CAD (coronary artery disease): patient had cardiac catheterization 2 years ago opting for medical management Patient is on atorvastatin and metoprolol Holding Eliquis (8) CLL (chronic lymphocytic leukemia): Patient's white blood cell count is 61,000 although he has been higher than this in the past. His hemoglobin does run in the 8 to 9 g range chronically but was lower at 7.6 upon admission secondary to acute blood loss anemia from fracture Appreciate oncology consultation He was to start chlorambucil for treatment on the day of his fall-this will be placed on hold for now as per oncology recommendation Follow CBC in the morning and transfuse as needed (9) Chronic kidney disease, stage III (moderate): CKD stage III-IV Creatinine slightly above baseline today at 2.07 Continue to orally hydrate Okay to continue home furosemide Continue calcitriol -Avoid nephrotoxins -renally dose meds when appropriate -follow BMP (10) CKD (chronic kidney disease) stage 4, GFR 15-29 ml/min: (11) Recurrent right pleural effusion: With Pleurx catheter in place 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 Ordered to drain Pleurx catheter for 500 mL every other day starting today Follows with pulmonology for this (12) Acute blood loss anemia: Hemoglobin dropped to 7.6 as above secondary to bleeding from hematoma from fracture in the shoulder while on Eliquis He has a chronic anemia secondary to CLL with baseline hemoglobin 8-9 Holding Eliquis Follow CBC Received 1 unit leukocyte reduced PRBCs on 05/09 (13) Aortic stenosis: Mild on echo from 05/2018 Moderate MR Follows with cardiology (14) DVT prophylaxis: Holding home apixaban for bleeding Disposition-continued stay for pain control and to monitor CBC PT/OT recommending acute rehab placement Case management consulted-needs referral for acute rehab Admission and Anticipated Discharge Date Admission Date: May 09, 2020 Physical Exam Constitutional: WD/WN, vitals as above Eyes: + anicteric sclerae ENMT: Nose: + external nose abnormality (Small superficial abrasion on the bridge of the nose) Neck: trachea midline, no thyromegaly Respiratory: normal respiratory effort; no cough Auscultation: + diminished lung sounds (At the bases bilaterally); no crackles and no wheezes Cardiovascular: Rate/Rhythm: regular rate and + irregularly irregular Heart Sounds: no murmur Extremities: no edema Chest (Breasts): Chest: normal inspection of chest Gastrointestinal (Abdomen): normal bowel sounds, soft, nontender, no hepatosplenomegaly Musculoskeletal: Extremities: + extremities abnormal to inspection (Left shoulder with large amount of edema and ecchymosis, positive tenderness palpation over the proximal humerus; right great toe with edema and ecchymosis, positive tenderness to palpation over the proximal phalanx), no cyanosis and no clubbing Skin: no rashes, warm and dry Neurologic: moves all extremities and awake; no focal motor deficits Psychiatric: A+Ox3, euthymic affect Lymphatic: no lymphedema Results & Data Results & Data ([facility]) Vital Signs (Past 12 Hours) Vital Signs Temp Pulse Resp BP Pulse Ox 05/11/20 15:31 36.6 C 98 H 17 129/71 96 05/11/20 08:12 36.5 C 83 18 121/68 94 PG Care Time/CCT Total # of Minutes Spent Total Time Spent with Patient: Total time spent is greater than 50% in coordination of care (as documented) at patient's floor/unit and/or counseling patient: Coding Diagnoses Fall W19.XXXA Encounter type: initial encounter Humeral fracture S42.215A Encounter type: initial encounter Fracture alignment: nondisplaced Fracture morphology: unspecified fracture morphology Fracture type: closed Humerus Location: surgical neck Laterality: left Rib fractures S22.32XA Encounter type: initial encounter Fracture type: closed Laterality: left Rib fracture type: single rib Fracture of right great toe S92.404A Encounter type: initial encounter Fracture alignment: nondisplaced Fracture type: closed Phalanx: unspecified phalanx Chronic diastolic CHF (congestive heart failure) I50.32 Atrial fibrillation I48.91 CAD (coronary artery disease) I25.10 CLL (chronic lymphocytic leukemia) C91.10 Chronic kidney disease, stage III (moderate) N18.30 CKD (chronic kidney disease) stage 4, GFR 15-29 ml/min N18.4 Recurrent right pleural effusion J90 Acute blood loss anemia D62 Aortic stenosis I35.0 Cardiac valve disease etiology: etiology unspecified DVT prophylaxis Z29.9 (1) Rib fractures Encounter type: initial encounter Fracture type: closed Laterality: left Rib fracture type: single rib Qualified Code(s): S22.32XA - Fracture of one rib, left side, initial encounter for closed fracture (2) Aortic stenosis Cardiac valve disease etiology: etiology unspecified Qualified Code(s): I35.0 - Nonrheumatic aortic (valve) stenosis (3) Fracture of right great toe Encounter type: initial encounter Fracture alignment: nondisplaced Fracture type: closed Phalanx: unspecified phalanx Qualified Code(s): S92.404A - Nondisplaced unspecified fracture of right great toe, initial encounter for closed fracture (4) Humeral fracture Encounter type: initial encounter Fracture alignment: nondisplaced Fracture morphology: unspecified fracture morphology Fracture type: closed Humerus Location: surgical neck Laterality: left Qualified Code(s): S42.215A - Unspecified nondisplaced fracture of surgical neck of left humerus, initial encounter for closed fracture (5) Fall Encounter type: initial encounter Qualified Code(s): W19.XXXA - Unspecified fall, initial encounter
--- NOTE | 2020-05-11 23:37 | Discharge Summary ---
Date of Service May 11, 2020 Admission HPI Per Admitting Provider Patient suffered a ground-level fall at home not quite sure the exact etiology. He does suffer from CLL and have a physical scheduled to begin chemotherapy today as he picked it up at the pharmacy. The patient fell at home striking his face fracturing his left humerus left rib and his right great toe proximal phalanx. He does have worsening anemia which could be acute blood loss anemia which was encouraged by his Eliquis for which he takes for his atrial fibrillation. Patient is slated to get 2 units of blood per the ER orthopedics was consulted and felt conservative management should be undertaken as he has no neurovascular compromise of his arm. Patient does have a history of pleural effusions and these are once again seen they seem to be mild to moderate per description by radiology. Patient's pain control is reasonable he is considering rehabilitation given his multiple fractures as he convalesces in the healing process. He requested speak with Dr. Clement or someone in oncology regarding the timing of his chemotherapy which she was anxious to be begin as his white blood cell count from his CLL is slightly higher than he has previously been comfortable with Principal Diagnosis Fall, left humerus fracture, right great toe fracture, left rib fractures, acute blood loss anemia Discharge Exam Constitutional WD/WN, vitals as above Eyes + anicteric sclerae ENMT Nose: + external nose abnormality (Small superficial abrasion on the bridge of the nose) Neck trachea midline, no thyromegaly Respiratory normal respiratory effort; no cough Auscultation: + diminished lung sounds (At the bases bilaterally); no crackles and no wheezes Cardiovascular Rate/Rhythm: regular rate and + irregularly irregular Heart Sounds: no murmur Extremities: no edema Chest (Breasts) Chest: normal inspection of chest Gastrointestinal (Abdomen) normal bowel sounds, soft, nontender, no hepatosplenomegaly Musculoskeletal Extremities: + extremities abnormal to inspection (Left shoulder with large amount of edema and ecchymosis, positive tenderness palpation over the proximal humerus; right great toe with edema and ecchymosis, positive tenderness to palpation over the proximal phalanx), no cyanosis and no clubbing Skin no rashes, warm and dry Neurologic moves all extremities and awake; no focal motor deficits Psychiatric A+Ox3, euthymic affect Lymphatic no lymphedema Discharge Data Allergies Allergy/AdvReac Type Severity Reaction Status Date / Time milk Allergy Mild GI SYMPTOMS Verified 05/09/20 12:53 Penicillins Allergy Mild Hives Verified 05/09/20 12:53 Sulfa (Sulfonamide Allergy Unknown UNKNOWN Verified 05/09/20 12:53 Antibiotics) Consultations 05/09/20 14:57 ED Decision to Admit Stat 05/09/20 17:58 Consult Case Management - Discharge Planning Routine Consult Oncology Routine Consult Orthopedic Surgery Stat 05/10/20 16:12 Consult Case Management - Discharge Planning Routine Ordered Studies 05/09/20 10:57 CT cervical spine wo con Stat CT head/brain wo con Stat 05/09/20 11:12 CT chest wo con Stat Left shoulder x-ray Pelvis x-ray Left humerus x-ray Foot x-ray-right Left femur x-ray Right ankle x-ray Hospital Course (1) Fall: Presented with a mechanical fall resulting in left humerus fracture, left sided rib fracture and right great toe proximal phalanx fracture along with nasal abrasion Will need rehab (2) Humeral fracture: Impacted left humeral neck fracture with concern for possible hematoma given the fact that he is on Eliquis -explains his acute blood loss anemia. Orthopedics consult appreciated-sling to the left upper extremity, nonweightbearing to the left upper extremity, icing He may loosen the arm sling to do gentle range of motion at the left elbow and wrist Follow-up with orthopedic surgery Dr. Garland in 10 to 14 days for repeat x-rays Pain control as needed with tramadol, oxycodone (3) Rib fractures: Possible subtle acute nondisplaced fracture of the lateral left seventh rib No displaced fracture or pneumothorax seen on CT scan of the chest -Pain control as needed with tramadol or oxycodone (4) Fracture of right great toe: Right great toe is fractured the proximal phalanx Appreciate orthopedic surgery consultation-no surgery and was given a firm cast shoe to the right foot. If he can maintain heel weightbearing that would be beneficial but not sure if he will be able to. He could possibly use a hemiwalker for the right side to assist with ambulation if needed Plan follow-up with Dr. Vasquez in 10 to 14 days for further x-rays (5) Chronic diastolic CHF (congestive heart failure): Patient's placed on a low-salt diet continues on his diuretic therapy of Lasix 40 twice daily and metoprolol succinate 25 (6) Atrial fibrillation: Patient is rate controlled with beta-grazyna Anticoagulation with Eliquis was held at this time given his acute blood loss anemia and acute fractures-can be restarted on discharge as hemoglobin is stable (7) CAD (coronary artery disease): patient had cardiac catheterization 2 years ago opting for medical management Patient is on atorvastatin and metoprolol (8) CLL (chronic lymphocytic leukemia): Patient's white blood cell count is 59,000 although he has been higher than this in the past. His hemoglobin does run in the 8 to 9 g range chronically but was lower at 7.6 upon admission secondary to acute blood loss anemia from fracture Appreciate oncology consultation He was to start chlorambucil for treatment on the day of his fall-this will be placed on hold for now as per oncology recommendation Follow CBC after discharge (9) Chronic kidney disease, stage III (moderate): CKD stage III-IV Creatinine slightly above baseline today at 2.33 Okay to continue home furosemide Continue calcitriol -Avoid nephrotoxins -renally dose meds when appropriate -follow BMP after discharge in 1 to 2 days at rehab (10) CKD (chronic kidney disease) stage 4, GFR 15-29 ml/min: As above (11) Recurrent right pleural effusion: With Pleurx catheter in place 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 Ordered to drain Pleurx catheter for 500 mL every other day Follows with pulmonology for this (12) Acute blood loss anemia: Hemoglobin dropped to 7.6 as above secondary to bleeding from hematoma from fracture in the shoulder while on Eliquis He has a chronic anemia secondary to CLL with baseline hemoglobin 8-9 Held Eliquis initially but can restart on discharge his hemoglobin is stable from previous Follow CBC in 1 to 2 days at rehab Received 1 unit leukocyte reduced PRBCs on 05/09 and hemoglobin came up and remained stable at 8.4 -Iron studies were checked and showed low serum iron-was given Venofer 300 mg IV x1 Follow-up with hematology/oncology (13) Aortic stenosis: Mild on echo from 05/2018 Moderate MR Follows with cardiology (14) DVT prophylaxis: Held home apixaban for bleeding Disposition-stable for discharge to acute rehab Total Time Total Time Spent Total Time Spent (In Minutes): 35 minutes Total Time Includes: Examination of the Patient, Discharge Planning, Medication Reconciliation and Communication With Other Providers (Hematology/oncology) Discharge Plan Discharge Items Patient Disposition: Transfer Inpatient Rehab Fac Reason For Visit: FALL, SHOULDER PAIN Discharge Diagnosis: Fall,Left humerus fracture, right great toe fracture, left rib fracture Condition on Discharge: Fair Activity: As commented below Lifting: Gradually increase as tolerated Bathing: No limitations Exercise/Sports: Gradually increase as tolerated Weightbearing: Left weightbearing and Right weightbearing Weightbearing Comment: Right heel weight bearing in post-op shoe; LUE in sling Non-emergency contact: Primary Care Provider and Surgeon Call non-emergency contact if: you have any medication questions, your symptoms worsen, your pain is not controlled, your pain is worsening, your pain is unusual for you, your pain is concerning for you, you have a fever and your temperature is above 101 Follow-up/Referrals: Héctor Vasquez DO [Surgeon] - (Follow up in 2 weeks for right great toe fracture ) Zach Garland MD [Surgeon] - (Follow up in 2 weeks for left humerus fracture ) Lani Donato MD [Primary Care Provider] - Diet: Heart Healthy and Low Potassium (2gm) Addtl Attending Provider Instructions: Continue LUE shoulder sling, right post-op shoe and pain control as needed. Check renal function in 1-2 days. Baseline creatinine around 2.0 and was 2.3 on day of discharge. Continue drainage of PleurX catheter every other day for about 500mL of pleural fluid. Next drainage due 05/12/20. Follow CBC in 1-2 days and needs follow up appointment with oncology. Pending Studies at Discharge: No Stand-Alone Forms: My [facility] Skilled Items Patient informed of condition?: Yes DNR: No Discharge Level of Care: Acute rehab Communicable Disease: No Discharge Prognosis: Improving Lines: None Urinary Catheter: No Medications and DC Order Prescriptions: New lidocaine 5 % Adhesive Patch,Medicated 1 patch transdermal DAILY@1900 Qty: 1 RF: 0 Continued metoprolol succinate [Toprol XL] 25 mg tablet extended release 24 hr 25 mg PO DAILY RF: 0 Eliquis 2.5 mg tablet 2.5 mg PO BID RF: 0 cyanocobalamin (vitamin B-12) 1,000 mcg/mL solution 1,000 mcg SUBCUT MONTHLY RF: 0 famotidine 40 mg tablet 40 mg PO HS RF: 0 fluticasone propionate [Flonase Allergy Relief] 50 mcg/actuation spray,susp ension 1 spray INTRANASAL DAILY RF: 0 oxycodone 5 mg tablet 5 mg PO Q6H PRN (Reason: pain) Qty: 14 RF: 0 sennosides [Senokot] 8.6 mg tablet 8.6 mg PO HS Qty: 30 RF: 0 atorvastatin 40 mg tablet 40 mg PO BID RF: 0 allopurinol 100 mg tablet 200 mg PO DAILY RF: 0 ondansetron 4 mg tablet,disintegrating 4 mg PO Q4H PRN (Reason: Nausea) RF: 0 diclofenac sodium 1 % gel 1 ea TOPICAL QID PRN (Reason: joint pain/ soreness) RF: 0 calcitriol [Rocaltrol] 0.25 mcg capsule 0.25 mcg PO Q OTHER DAY RF: 0 acetaminophen [Tylenol 8 Hour] 650 mg Tablet Extended Release 650 mg PO Q8H PRN (Reason: Pain) RF: 0 bicalutamide [Casodex] 50 mg Tablet 50 mg PO QPM RF: 0 montelukast [Singulair] 10 mg Tablet 10 mg PO QPM RF: 0 cranberry 500 mg Capsule 0 mg PO DAILY RF: 0 nitroglycerin [Nitrostat] 0.4 mg Tablet, Sublingual 0.4 mg Sublingual UD PRN (Reason: Chest Pain) RF: 0 omeprazole 40 mg Capsule,Delayed Release(Dr/Ec) 40 mg PO QPM RF: 0 zolpidem [Ambien] 10 mg tablet 10 mg PO HS RF: 0 albuterol sulfate [Ventolin HFA] 90 mcg/actuation HFA aerosol inhaler 2 puff INHALATION Q4H PRN (Reason: Wheezing and SOB) RF: 0 furosemide 40 mg tablet 40 mg PO BID RF: 0 tramadol 50 mg Tablet 50 mg PO Q6H MDD 200mg PRN (Reason: Pain) RF: 0 Discontinued ibuprofen 800 mg Tablet 800 mg PO TID RF: 0 naproxen 500 mg Tablet,Delayed Release (Dr/Ec) 500 mg PO Q12H PRN (Reason: Pain) RF: 0 Discharge Orders: Discharge Order (Routine); Ordered 05/11/20 Ordered By: Denise Mcleod/Other Patient Handouts: Fall Prevention Assessing Risk, Preventing Falls Moving Safely ..., Exercises to Prevent Falls Admission Data Admit Date/Time: 10/21/20 14:43 Attending Provider: Denise Mendes Admit Provider: Adam Monte Primary Care Provider: Lani Donato Other Providers: Adam Monte ; Tang Renteria ; Ean Walker V. ; [place] ; [facility] Other Interventions: Discharge Summary Assessment (RN) Last Done: 05/11/20 17:33 Coding Level of Care Code D/C Day Management >30 mins Diagnoses Fall W19.XXXA Encounter type: initial encounter Humeral fracture S42.215A Encounter type: initial encounter Fracture alignment: nondisplaced Fracture morphology: unspecified fracture morphology Fracture type: closed Humerus Location: surgical neck Laterality: left Rib fractures S22.32XA Encounter type: initial encounter Fracture type: closed Laterality: left Rib fracture type: single rib Fracture of right great toe S92.404A Encounter type: initial encounter Fracture alignment: nondisplaced Fracture type: closed Phalanx: unspecified phalanx Chronic diastolic CHF (congestive heart failure) I50.32 Atrial fibrillation I48.91 CAD (coronary artery disease) I25.10 CLL (chronic lymphocytic leukemia) C91.10 Chronic kidney disease, stage III (moderate) N18.30 CKD (chronic kidney disease) stage 4, GFR 15-29 ml/min N18.4 Recurrent right pleural effusion J90 Acute blood loss anemia D62 Aortic stenosis I35.0 Cardiac valve disease etiology: etiology unspecified DVT prophylaxis Z29.9
== END 2020-05-11 18:13 | DRG 563 ==
LOC: ED 10:29 → 3N 14:43 → SUATTDRO 14:43 → 3N 16:23

== ENCOUNTER 2020-07-31 12:40 | Inpatient (IN) ==
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
[2020-07-31] MEDS: METOPROLOL TARTRATE 1 MG/ML VIAL IV PRN ×3 (14:10→14:30)
[2020-07-31 14:31] LABS: Mean Corpuscular Hgb Conc 31.6 g/dL (32-36); Mean Platelet Volume 10.8 fL (7.4-10.4); Platelet Count 192 K/uL (130-400)
[2020-07-31 14:33] LABS: Hematocrit (blood only) 32.9 % (42-52); Hemoglobin 10.4 g/dL (14.0-18.0); Mean Corpuscular Hemoglobin 31.9 pg (25-34); Mean Corpuscular Volume 100.9 fL (80-100); RDW Coefficient of Variation 14.9 % (11.5-14.5); RDW Standard Deviation 53.6 fL (36.4-46.3); Red Blood Count 3.26 M/uL (4.7-6.1); White Blood Count 78.33 K/uL (4.8-10.8)
[2020-07-31 14:41] LABS: INR 1.3 (0.9-1.1); Partial Thromboplastin Ratio 0.9; Partial Thromboplastin Time 26.4 Seconds (21.0-31.0); Prothrombin Time 13.4 Seconds (9.0-12.0)
--- NOTE | 2020-07-31 14:41 | XRay Report ---
XR chest 1V portable HISTORY: Resp sx c/w COVID-19 COMPARISON: Chest 06/08/2020. FINDINGS: Multifocal airspace opacities seen within the lungs, right greater than left. This is consi stent with a multifocal pneumonia. Trace right pleural effusion has decreased in size. Right-sided ch est tube is unchanged in position. The heart remains mildly enlarged. Diffuse interstitial thickening persists. No pneumothorax. IMPRESSION: 1. Interval development of multifocal bilateral airspace opacities, right greater than left. This fav ors a multifocal pneumonia. 2. Right-sided chest tube is unchanged in position. Decrease in size in the trace right pleural effus ion. 3. No pneumothorax. ACT 112: Negative or not required by law. Electronically signed by: Jeor Knight M.D. 07/31/2020 2:40 PM
[2020-07-31 14:45] LABS: Albumin Level 2.9 gm/dl (3.4-5.0); BUN Creatinine Ratio 19.4 (10-20); Creatinine Clr Calc Pharmacy 24.8 ml/min; Est GFR (African American) 27.5; Est GFR (Non-African American) 23.7; Potassium 4.6 mmol/L (3.5-5.1)
[2020-07-31 14:56] LABS: Basophils # (auto) 0.12 K/uL (0-0.2); Basophils % (auto) 0.2 %; Eosinophils # (auto) 0.01 K/uL (0-0.5); Immature Granulocytes # (auto) 0.23 K/uL (0.00-0.02); Immature Granulocytes % (auto) 0.3 %; Lymphocytes % (auto) 91.9 %; Monocytes # (auto) 0.59 K/uL (0.11-0.59); Monocytes % (auto) 0.8 %; Neutrophils # (auto) 5.38 K/uL (1.4-6.5); Neutrophils % (auto) 6.8 %; Ovalocytes 1+; Poikilocytosis Present; Smudge Cells Present
[2020-07-31 15:06] LABS: Base Excess VBG -0.6 mEq/L; Oxygen Saturation VBG 63.6 %; pH VBG 7.42 (7.36-7.41)
[2020-07-31 15:10] LABS: Albumin Globulin Ratio 0.8 (0.9-2); Bilirubin,Total 0.5 mg/dl (0.2-1); Globulin 3.4 gm/dl (2.5-4.0); Total Protein 6.3 gm/dl (6.4-8.2); Troponin I 0.133 ng/ml (0-0.045)
[2020-07-31] MEDS ORDERED: DEXAMETHASONE SOD INJ 10 MG/ML VIAL ONE (15:33)
--- NOTE | 2020-07-31 15:35 | Electrocardiogram Report ---
Test Reason : Blood Pressure : / mmHG Vent. Rate : 119 BPM Atrial Rate : 144 BPM P-R Int : 000 ms QRS Dur : 110 ms QT Int : 336 ms P-R-T Axes : 000 -61 -07 degrees QTc Int : 472 ms Atrial fibrillation with rapid ventricular response Left anterior fascicular block Possible Old Anterior infarct (cited on or before 01-JUN-2020) Abnormal ECG When compared with ECG of 01-JUN-2020 16:08, No significant change was found Confirmed by Zac Stuart [id number]) on 07/31/2020 3:35:15 PM Referred By: REFERRED SELF Confirmed By:Zac Stuart
[2020-07-31] MEDS: dexAMETHasone 6 MG in SYRINGE 0 ML IV SCH (15:37)
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
[2020-07-31] MEDS ORDERED: ACETAMINOPHEN 325 MG TAB PO PRN (22:06)
[2020-07-31] MEDS ORDERED: NITROGLYCERIN SL 0.4 MG/TAB TAB SL PRN (22:06)
[2020-07-31] MEDS ORDERED: DICLOFENAC SOD 1% GEL 100 GM TUBE EXT PRN (22:06)
[2020-07-31] MEDS ORDERED: ATORVASTATIN 40 MG TAB PO SCH (22:06)
[2020-07-31] MEDS ORDERED: FUROSEMIDE 40 MG TAB PO SCH ×2 (22:06→22:30)
[2020-07-31] MEDS ORDERED: ALBUTEROL HFA 8 GM INHALER INH PRN (22:06)
[2020-07-31] MEDS ORDERED: ONDANSETRON 4 MG OD TAB PO PRN (22:12)
[2020-07-31] MEDS ORDERED: POTASSIUM CHLORIDE CRTAB 20 MEQ TABCR PO SCH (22:30)
[2020-07-31] MEDS: ALBUT/IPRATROP 3MG/0.5MG NEB 3 ML VIAL NEB SCH (23:03)
[2020-08-01] MEDS: SENNA 8.6 MG TAB PO SCH ×2 (00:17→21:28)
[2020-08-01] MEDS: ZINC SULFATE 220 MG CAPSULE PO SCH ×2 (00:17→08:46)
[2020-08-01] MEDS: MONTELUKAST SODIUM 10 MG TABLET PO SCH ×2 (00:17→21:28)
[2020-08-01] MEDS: PANTOprazole 40 MG TAB PO SCH ×2 (00:17→21:28)
[2020-08-01] MEDS: BICALUTAMIDE 50 MG TAB PO SCH ×2 (00:17→21:28)
[2020-08-01] MEDS: FAMOTIDINE 40 MG TABLET PO SCH ×2 (00:18→21:29)
[2020-08-01] MEDS: guaiFENesin 600 MG TABCR PO SCH ×3 (00:18→21:28)
[2020-08-01] MEDS: ATORVASTATIN 40 MG TAB PO SCH ×2 (00:18→21:28)
[2020-08-01] MEDS: DOCUSATE SODIUM 100 MG CAP PO SCH ×3 (00:19→21:28)
[2020-08-01] MEDS: APIXABAN 2.5 MG TAB PO SCH ×3 (00:19→21:28)
[2020-08-01] MEDS: ZOLPIDEM TARTRATE 10 MG TAB PO SCH ×2 (00:26→21:28)
[2020-08-01] MEDS: ALBUT/IPRATROP 3MG/0.5MG NEB 3 ML VIAL NEB SCH (07:11)
[2020-08-01] MEDS: dexAMETHasone 6 MG in SYRINGE 0 ML IV SCH (08:46)
[2020-08-01] MEDS: METOPROLOL SUCC 25MG EXT REL TAB PO SCH (08:46)
[2020-08-01] MEDS: CALCITRIOL 0.25 MCG CAPSULE PO SCH (08:46)
[2020-08-01] MEDS: FLUTICASONE PROPIONATE NA SPR 16 GM BTL SCH (08:46)
[2020-08-01] MEDS: allopurinoL 100 MG TAB PO SCH (08:47)
[2020-08-01] MEDS: ASPIRIN 81 MG ECTAB PO SCH (08:47)
[2020-08-01] MEDS ORDERED: NON-FORMULARY MEDICATION (Cranberry 500 mg Capsule) PO SCH (09:00)
[2020-08-01 09:35] LABS: Hematocrit (blood only) 33.3 % (42-52); Hemoglobin 10.3 g/dL (14.0-18.0); Mean Corpuscular Hemoglobin 31.4 pg (25-34); Mean Corpuscular Hgb Conc 30.9 g/dL (32-36); Mean Corpuscular Volume 101.5 fL (80-100); Mean Platelet Volume 11.1 fL (7.4-10.4); Platelet Count 169 K/uL (130-400); RDW Coefficient of Variation 14.7 % (11.5-14.5); RDW Standard Deviation 53.8 fL (36.4-46.3); Red Blood Count 3.28 M/uL (4.7-6.1); White Blood Count 72.34 K/uL (4.8-10.8)
[2020-08-01 09:49] LABS: BUN Creatinine Ratio 24.4 (10-20); Calcium 8.6 mg/dl (8.5-10.1); Est GFR (African American) 30.4; Est GFR (Non-African American) 26.2
[2020-08-01 10:14] LABS: Basophils # (auto) 0.08 K/uL (0-0.2); Basophils % (auto) 0.1 %; Echinocytes 1+; Immature Granulocytes # (auto) 0.15 K/uL (0.00-0.02); Immature Granulocytes % (auto) 0.2 %; Lymphocytes % (auto) 90.8 %; Monocytes # (auto) 0.16 K/uL (0.11-0.59); Monocytes % (auto) 0.2 %; Neutrophils # (auto) 6.25 K/uL (1.4-6.5); Neutrophils % (auto) 8.7 %; Ovalocytes 1+; Poikilocytosis Present; Smudge Cells Present
--- NOTE | 2020-08-01 16:00 | Hospitalist Progress Note ---
Date of Service August 01, 2020 Assessment & Plan (1) COVID-19: Covid-19 pneumonia. - Dexamethasone 6 mg IV daily (End date: 08/10/2019) - Remdesivir is contraindicated due to CKD. - Do not feel convalescent plasma would be of benefit especially with a history of pleural effusions and CHF-May be risk of worsening pulmonary edema - Incentive spirometry with flutter valve t.i.d. - Supplemental O2 to keep SpO2 > 94% -> Presently needing 2L NC. (2) CAD (coronary artery disease): No chest pain. EKG without acute ischemic changes (stable from prior). Troponin on admission was 0.133 and stable at 12 hours at 0.11. - Continue ASA, statin, beta-grazyna - No further inpatient investigation (3) Chronic diastolic CHF (congestive heart failure): Presently appears hypovolemic on exam. - Hold home furosemide - Monitor I&Os, weights (4) CLL (chronic lymphocytic leukemia): WBC count elevated chronically. Prior evaluations in and out of the hospital. - He is off of CLL treatment for the past several months. - No inpatient needs (5) Recurrent right pleural effusion: Presumably due to CLL as he reports prior leukemic cells in it. Typically drains about 600 mL. - Drain every other day beginning on 08/02/2020. (6) Atrial fibrillation: Permanent. - Continue metoprolol succinate 25 mg once daily - Continue apixaban, renally dosed (7) HTN (hypertension): Blood pressures are controlled today at 140/70. - Continue metoprolol (8) Prostate carcinoma: No acute needs. - Continue Casodex (9) Chronic kidney disease, stage III (moderate): With acute kidney injury in the setting of CKD stage III-IV. Baseline Cr 1.7 - 1.8. - Creatinine was 2.36 on admission. Likely pre-renal from cough, illness from Covid. - Follow BMP in the morning - Renally dose other medications as needed (10) DVT prophylaxis: Eliquis Admission and Anticipated Discharge Date Admission Date: July 31, 2020 Subjective Reports he is breathing "much better" than yesterday. Reports no fevers/chills, chest pain, abdominal pain, nausea, or vomiting. Physical Exam Constitutional: WD/WN, vitals as above Eyes: EOM intact bilaterally; no conjunctival abnormality ENMT: external ear and nose normal, oropharynx normal Neck: trachea midline, no thyromegaly normal visual inspection Respiratory: normal respiratory effort, lungs clear to auscultation no respiratory distress Cardiovascular: RRR, no murmur, no edema Gastrointestinal (Abdomen): Inspection/Auscultation: abdomen normal to inspection; abdomen not distended Musculoskeletal: no cyanosis or clubbing, extremities motor strength 5/5 Skin: no rashes, warm and dry Neurologic: moves all extremities and awake Psychiatric: Orientation: alert, oriented to person and cooperative Results & Data Results & Data ([facility]) Vital Signs (Past 12 Hours) Vital Signs Temp Pulse Pulse Resp BP Pulse Ox 08/01/20 15:45 36.5 C 124 H 25 H 138/72 100 08/01/20 11:43 36.6 C 104 H 18 117/75 98 08/01/20 07:20 36.5 C 89 20 119/70 98 08/01/20 07:11 88 17 96 08/01/20 04:25 102 H PG Care Time/CCT Total # of Minutes Spent Total Time Spent with Patient: Total time spent is greater than 50% in coordination of care (as documented) at patient's floor/unit and/or counseling patient: Coding Level of Care Code 74142 Subseq Hosp Care Lvl 2 Diagnoses COVID-19 U07.1 CAD (coronary artery disease) I25.10 Chronic diastolic CHF (congestive heart failure) I50.32 CLL (chronic lymphocytic leukemia) C91.10 Recurrent right pleural effusion J90 Atrial fibrillation I48.91 HTN (hypertension) I10 Prostate carcinoma C61 Chronic kidney disease, stage III (moderate) N18.30 DVT prophylaxis Z29.9
[2020-08-01] MEDS: traMADol HCL 50 MG TABLET PO PRN (21:27)
[2020-08-01] MEDS ORDERED: METOPROLOL TARTRATE 1 MG/ML VIAL IV STA (22:37)
[2020-08-02 07:57] LABS: Hematocrit (blood only) 30.3 % (42-52); Hemoglobin 9.4 g/dL (14.0-18.0); Mean Corpuscular Hemoglobin 31.2 pg (25-34); Mean Corpuscular Volume 100.7 fL (80-100); Mean Platelet Volume 10.4 fL (7.4-10.4); Platelet Count 182 K/uL (130-400); RDW Coefficient of Variation 14.8 % (11.5-14.5); RDW Standard Deviation 53.5 fL (36.4-46.3); Red Blood Count 3.01 M/uL (4.7-6.1)
[2020-08-02 08:21] LABS: Basophils # (auto) 0.09 K/uL (0-0.2); Basophils % (auto) 0.1 %; Immature Granulocytes # (auto) 0.26 K/uL (0.00-0.02); Immature Granulocytes % (auto) 0.3 %; Lymphocytes # (auto) 75.84 K/uL (1.2-3.4); Lymphocytes % (auto) 89.5 %; Monocytes # (auto) 0.67 K/uL (0.11-0.59); Monocytes % (auto) 0.8 %; Neutrophils # (auto) 7.84 K/uL (1.4-6.5); Neutrophils % (auto) 9.3 %; Ovalocytes 1+; Smudge Cells Present
[2020-08-02] MEDS: allopurinoL 100 MG TAB PO SCH (08:23)
[2020-08-02] MEDS: FLUTICASONE PROPIONATE NA SPR 16 GM BTL SCH (08:23)
[2020-08-02] MEDS: dexAMETHasone 6 MG in SYRINGE 0 ML IV SCH (08:23)
[2020-08-02] MEDS: APIXABAN 2.5 MG TAB PO SCH ×2 (08:24→20:17)
[2020-08-02] MEDS: guaiFENesin 600 MG TABCR PO SCH ×2 (08:24→20:17)
[2020-08-02] MEDS: METOPROLOL SUCC 25MG EXT REL TAB PO SCH (08:24)
[2020-08-02] MEDS: ASPIRIN 81 MG ECTAB PO SCH (08:24)
[2020-08-02] MEDS: DOCUSATE SODIUM 100 MG CAP PO SCH ×3 (08:24→20:23)
[2020-08-02 08:34] LABS: BUN Creatinine Ratio 26.2 (10-20); Calcium 8.8 mg/dl (8.5-10.1); Creatinine Clr Calc Pharmacy 23.4 ml/min; Est GFR (African American) 25.6; Est GFR (Non-African American) 22.1; Potassium 4.5 mmol/L (3.5-5.1)
[2020-08-02] MEDS: ALBUT/IPRATROP 3MG/0.5MG NEB 3 ML VIAL NEB PRN (10:06)
--- NOTE | 2020-08-02 14:33 | Hospitalist Progress Note ---
Date of Service August 02, 2020 Assessment & Plan (1) COVID-19: Covid-19 pneumonia. - Dexamethasone 6 mg IV daily (End date: 08/10/2019) - Remdesivir is contraindicated due to CKD. - Do not feel convalescent plasma would be of benefit especially with a history of pleural effusions and CHF-May be risk of worsening pulmonary edema - Incentive spirometry with flutter valve t.i.d. - Supplemental O2 to keep SpO2 > 94% -> Presently needing 2L NC. Stable from yesterday O2 need, but he seems more tired. Did DuoNeb which helped. (2) CAD (coronary artery disease): No chest pain. EKG without acute ischemic changes (stable from prior). Troponin on admission was 0.133 and stable at 12 hours at 0.11. - Continue ASA, statin, beta-grazyna - No further inpatient investigation (3) Chronic diastolic CHF (congestive heart failure): Presently appears euvolemic on exam. No swelling. No JVD. - Hold home furosemide - Will give gentle IV fluids today. - Monitor I&Os, weights (4) CLL (chronic lymphocytic leukemia): WBC count elevated chronically. Prior evaluations in and out of the hospital. - He is off of CLL treatment for the past several months. - No inpatient needs (5) Recurrent right pleural effusion: Presumably due to CLL as he reports prior leukemic cells in it. Typically drains about 600 mL. - Drain every other day beginning on 08/02/2020. - Drained 300 mL on 08/02. Improved his shortness of breath. (6) Atrial fibrillation: Permanent. - Continue metoprolol succinate 25 mg once daily - Continue apixaban, renally dosed (7) HTN (hypertension): Blood pressures are controlled today at 120/75. - Continue metoprolol (8) Prostate carcinoma: No acute needs. - Continue Casodex (9) Chronic kidney disease, stage III (moderate): With acute kidney injury in the setting of CKD stage III-IV. Baseline Cr 1.7 - 1.8. - Creatinine was 2.36 on admission. Likely pre-renal from cough, illness from Covid. - Renally dose other medications as needed - Follow BMP in the morning -> Worse today. Will give gentle IV fluids. (10) DVT prophylaxis: Eliquis Admission and Anticipated Discharge Date Admission Date: July 31, 2020 Subjective Looking more tired today. He reports some extra wheezing and shortness of breath. Reports no fevers/chills, chest pain, abdominal pain, nausea, or vomiting. Physical Exam Constitutional: WD/WN, vitals as above Eyes: EOM intact bilaterally; no conjunctival abnormality ENMT: external ear and nose normal, oropharynx normal Neck: trachea midline, no thyromegaly normal visual inspection Respiratory: normal respiratory effort, lungs clear to auscultation no respiratory distress Cardiovascular: RRR, no murmur, no edema Gastrointestinal (Abdomen): Inspection/Auscultation: abdomen normal to inspection; abdomen not distended Musculoskeletal: no cyanosis or clubbing, extremities motor strength 5/5 Skin: no rashes, warm and dry Neurologic: moves all extremities and awake Psychiatric: Orientation: alert, oriented to person and cooperative Results & Data Results & Data ([facility]) Vital Signs (Past 12 Hours) Vital Signs Temp Pulse Resp BP Pulse Ox 08/02/20 12:00 36.5 C 105 H 18 117/76 95 08/02/20 10:07 103 H 18 95 08/02/20 08:00 36.5 C 118 H 15 124/72 94 08/02/20 04:00 37.1 C 120 H 22 117/75 91 PG Care Time/CCT Total # of Minutes Spent Total Time Spent with Patient: Total time spent is greater than 50% in coordination of care (as documented) at patient's floor/unit and/or counseling patient: Coding Level of Care Code 22339 Subseq Hosp Care Lvl 3 Diagnoses COVID-19 U07.1 CAD (coronary artery disease) I25.10 Chronic diastolic CHF (congestive heart failure) I50.32 CLL (chronic lymphocytic leukemia) C91.10 Recurrent right pleural effusion J90 Atrial fibrillation I48.91 HTN (hypertension) I10 Prostate carcinoma C61 Chronic kidney disease, stage III (moderate) N18.30 DVT prophylaxis Z29.9
[2020-08-02] MEDS ORDERED: NORMOSOL-R 1,000 ML IV SCH (14:45)
[2020-08-02] MEDS: PANTOprazole 40 MG TAB PO SCH (20:17)
[2020-08-02] MEDS: FAMOTIDINE 40 MG TABLET PO SCH (20:17)
[2020-08-02] MEDS: ZOLPIDEM TARTRATE 10 MG TAB PO SCH (20:17)
[2020-08-02] MEDS: MONTELUKAST SODIUM 10 MG TABLET PO SCH (20:17)
[2020-08-02] MEDS: SENNA 8.6 MG TAB PO SCH ×2 (20:17→20:23)
[2020-08-02] MEDS: BICALUTAMIDE 50 MG TAB PO SCH (20:17)
[2020-08-02] MEDS: ATORVASTATIN 40 MG TAB PO SCH (20:17)
[2020-08-03] MEDS ORDERED: dilTIAZem HCl 5 MG/ML 5 ML VIAL IV STA (03:33)
[2020-08-03] MEDS ORDERED: dilTIAZem HCl 5 MG/ML 5 ML VIAL IV ONE (03:37)
[2020-08-03] MEDS: ALBUT/IPRATROP 3MG/0.5MG NEB 3 ML VIAL NEB PRN (03:37)
[2020-08-03] MEDS: traMADol HCL 50 MG TABLET PO PRN (04:13)
[2020-08-03] MEDS ORDERED: FUROSEMIDE 20 MG in SYRINGE 0 ML IV ONE (04:16)
[2020-08-03] MEDS ORDERED: FUROSEMIDE 40 MG/4 ML VIAL IV ONE ×3 (04:30→13:45)
--- NOTE | 2020-08-03 07:10 | XRay Report ---
XR chest 1V portable HISTORY: 89 years-old Male covid, hx RVR acute sepsis with pneumonia COMPARISON: Chest radiograph 07/31/2020 TECHNIQUE: Portable AP view of the chest FINDINGS: Right-sided chest tube is in unchanged positioning. Cardiac silhouette is enlarged. Diffuse interstit ial thickening. Small pleural effusions. No pneumothorax. Moderate to extensive bilateral airspace op acities, right greater than left has mildly progressed. Degenerative changes of the shoulders and spi ne with remote fracture deformity of the proximal left humerus. IMPRESSION: 1. Progressively worsened right greater than left airspace opacities suggestive of multifocal pneumon ia. 2. Cardiomegaly with small pleural effusions. 3. Unchanged positioning of the right-sided chest tube. 4. No pneumothorax. ACT 112: Negative or not required by law. The above report was generated using voice recognition software. It may contain grammatical, syntax o r spelling errors. Electronically signed by: Jann Lombardo M.D. 08/03/2020 7:08 AM
[2020-08-03] MEDS: APIXABAN 2.5 MG TAB PO SCH ×2 (07:54→20:30)
[2020-08-03] MEDS: CALCITRIOL 0.25 MCG CAPSULE PO SCH (07:54)
[2020-08-03] MEDS: METOPROLOL SUCC 25MG EXT REL TAB PO SCH (07:54)
[2020-08-03] MEDS: ASPIRIN 81 MG ECTAB PO SCH (07:55)
[2020-08-03] MEDS: guaiFENesin 600 MG TABCR PO SCH ×2 (07:55→20:30)
[2020-08-03] MEDS: FLUTICASONE PROPIONATE NA SPR 16 GM BTL SCH (07:55)
[2020-08-03] MEDS: allopurinoL 100 MG TAB PO SCH (07:55)
[2020-08-03] MEDS: DOCUSATE SODIUM 100 MG CAP PO SCH ×2 (07:56→20:25)
[2020-08-03] MEDS: dexAMETHasone 6 MG in SYRINGE 0 ML IV SCH (08:05)
[2020-08-03 08:06] LABS: Hematocrit (blood only) 29.9 % (42-52); Hemoglobin 9.3 g/dL (14.0-18.0); Mean Corpuscular Hemoglobin 31.2 pg (25-34); Mean Corpuscular Hgb Conc 31.1 g/dL (32-36); Mean Corpuscular Volume 100.3 fL (80-100); Mean Platelet Volume 10.8 fL (7.4-10.4); Platelet Count 196 K/uL (130-400); RDW Standard Deviation 53.5 fL (36.4-46.3); Red Blood Count 2.98 M/uL (4.7-6.1); White Blood Count 89.93 K/uL (4.8-10.8)
[2020-08-03 08:27] LABS: Albumin Level 2.8 gm/dl (3.4-5.0); BUN Creatinine Ratio 26.9 (10-20); Calcium 8.7 mg/dl (8.5-10.1); Creatinine Clr Calc Pharmacy 22.2 ml/min; Est GFR (Non-African American) 20.7; Magnesium 2.6 mg/dl (1.8-2.4); Potassium 4.1 mmol/L (3.5-5.1)
[2020-08-03 08:30] LABS: Albumin Globulin Ratio 0.9 (0.9-2); Bilirubin,Total 0.7 mg/dl (0.2-1); Globulin 3.1 gm/dl (2.5-4.0); Total Protein 5.9 gm/dl (6.4-8.2)
[2020-08-03 08:49] LABS: Basophils # (auto) 0.12 K/uL (0-0.2); Basophils % (auto) 0.1 %; Immature Granulocytes # (auto) 0.31 K/uL (0.00-0.02); Immature Granulocytes % (auto) 0.3 %; Lymphocytes # (auto) 79.36 K/uL (1.2-3.4); Lymphocytes % (auto) 88.2 %; Monocytes # (auto) 0.64 K/uL (0.11-0.59); Monocytes % (auto) 0.7 %; Neutrophils % (auto) 10.7 %; Ovalocytes 1+; Smudge Cells Present; Toxic Vacuolation 1+
[2020-08-03] MEDS ORDERED: FUROSEMIDE 40 MG in SYRINGE 0 ML IV ONE (11:04)
--- NOTE | 2020-08-03 13:30 | Hospitalist Progress Note ---
Date of Service August 03, 2020 Assessment & Plan (1) COVID-19: Covid-19 pneumonia. - Dexamethasone 6 mg IV daily (End date: 08/10/2019) - Remdesivir is contraindicated due to CKD. - Do not feel convalescent plasma would be of benefit especially with a history of pleural effusions and CHF - May be risk of worsening pulmonary edema - Incentive spirometry with flutter valve t.i.d. - Supplemental O2 to keep SpO2 > 94% -> Presently needing 6L NC which is up from 2L yesterday. (2) Chronic diastolic CHF (congestive heart failure): Presently appears slightly hypervolemic on exam. No swelling, but does have JVD. - Hold home furosemide - Gave Lasix 40 mg IV x 1 on 08/03 - Monitor I&Os, weights (3) CLL (chronic lymphocytic leukemia): WBC count elevated chronically. Prior evaluations in and out of the hospital. He is off of CLL treatment for the past several months. - Up to 90k on 08/03. Discussed with oncology and also reviewed UpToDate - Likely not much effect as long as WBC < 400k. No present needs. (4) Recurrent right pleural effusion: Presumably due to CLL as he reports prior leukemic cells in it. Typically drains about 600 mL. - Drain every other day beginning on 08/02/2020. - Drained 300 mL on 08/02. Improved his shortness of breath. (5) Chronic kidney disease, stage III (moderate): With acute kidney injury in the setting of CKD stage III-IV. Baseline Cr 1.7 - 1.8. - Creatinine was 2.36 on admission. - Follow BMP in the morning -> Worse today. Think this may be cardiorenal. Will continue to monitor. (6) CAD (coronary artery disease): No chest pain. EKG without acute ischemic changes (stable from prior). Troponin on admission was 0.133 and stable at 12 hours at 0.11. - Continue ASA, statin, beta-grazyna - No further inpatient investigation (7) Atrial fibrillation: Permanent. - Continue metoprolol succinate 25 mg once daily - Rates ~100 bpm presently. - Continue apixaban, renally dosed (8) HTN (hypertension): Blood pressures are controlled today at 120/80. - Continue metoprolol (9) Prostate carcinoma: No acute needs. - Continue Casodex (10) DVT prophylaxis: Eliquis Admission and Anticipated Discharge Date Admission Date: July 31, 2020 Subjective Reports more shortness of breath today. Reports no fevers/chills, chest pain, abdominal pain, nausea, or vomiting. Physical Exam Constitutional: WD/WN, vitals as above Eyes: EOM intact bilaterally; no conjunctival abnormality ENMT: external ear and nose normal, oropharynx normal Neck: trachea midline, no thyromegaly normal visual inspection Respiratory: + labored breathing; no respiratory distress Auscultation: lungs clear to auscultation bilaterally Cardiovascular: Rate/Rhythm: + tachycardic and + irregularly irregular Heart Sounds: normal S1 and normal S2 Vessels: + JVD Extremities: no edema Gastrointestinal (Abdomen): Inspection/Auscultation: abdomen normal to inspection; abdomen not distended Musculoskeletal: no cyanosis or clubbing, extremities motor strength 5/5 Skin: no rashes, warm and dry Neurologic: moves all extremities and awake Psychiatric: Orientation: alert, oriented to person and cooperative Results & Data Results & Data ([facility]) Vital Signs (Past 12 Hours) Vital Signs Temp Pulse Pulse Resp BP BP Pulse Ox 08/03/20 11:07 37.2 C 95 H 18 118/78 99 08/03/20 07:41 122 H 08/03/20 07:18 37.9 C H 112 H 20 115/74 96 08/03/20 05:25 110 H 22 140/74 94 08/03/20 05:24 37.2 C 08/03/20 04:14 39.6 C H 156 H 40 H 155/76 H 90 08/03/20 03:45 36.4 C L 159 H 26 H 142/87 H 93 08/03/20 03:38 119 H 22 98 PG Care Time/CCT Total # of Minutes Spent Total Time Spent with Patient: Total time spent is greater than 50% in coordination of care (as documented) at patient's floor/unit and/or counseling patient: Coding Level of Care Code 45917 Subseq Hosp Care Lvl 3 Diagnoses COVID-19 U07.1 Chronic diastolic CHF (congestive heart failure) I50.32 CLL (chronic lymphocytic leukemia) C91.10 Recurrent right pleural effusion J90 Chronic kidney disease, stage III (moderate) N18.30 CAD (coronary artery disease) I25.10 Atrial fibrillation I48.91 HTN (hypertension) I10 Prostate carcinoma C61 DVT prophylaxis Z29.9
[2020-08-03] MEDS: ZOLPIDEM TARTRATE 10 MG TAB PO SCH (20:28)
[2020-08-03] MEDS: ATORVASTATIN 40 MG TAB PO SCH (20:29)
[2020-08-03] MEDS: PANTOprazole 40 MG TAB PO SCH (20:29)
[2020-08-03] MEDS: FAMOTIDINE 40 MG TABLET PO SCH (20:29)
[2020-08-03] MEDS: MONTELUKAST SODIUM 10 MG TABLET PO SCH (20:29)
[2020-08-03] MEDS: SENNA 8.6 MG TAB PO SCH (20:29)
[2020-08-03] MEDS: BICALUTAMIDE 50 MG TAB PO SCH (20:57)
[2020-08-04] MEDS ORDERED: LORazepam 0.5 MG/1 ML VIAL IV STA ×2 (01:49→05:25)
[2020-08-04] MEDS: METOPROLOL TARTRATE 1 MG/ML VIAL IV PRN (06:16)
[2020-08-04 06:47] LABS: Hematocrit (blood only) 30.7 % (42-52); Hemoglobin 9.9 g/dL (14.0-18.0); Mean Corpuscular Hemoglobin 31.7 pg (25-34); Mean Corpuscular Hgb Conc 32.2 g/dL (32-36); Mean Corpuscular Volume 98.4 fL (80-100); Mean Platelet Volume 10.9 fL (7.4-10.4); Platelet Count 209 K/uL (130-400); RDW Standard Deviation 53.6 fL (36.4-46.3); Red Blood Count 3.12 M/uL (4.7-6.1); White Blood Count 118.69 K/uL (4.8-10.8)
[2020-08-04 07:13] LABS: BUN Creatinine Ratio 28.7 (10-20); Blood Urea Nitrogen 75 mg/dl (7-18); Calcium 8.2 mg/dl (8.5-10.1); Carbon Dioxide 24 mmol/L (21-32); Chloride 98 mmol/L (98-107); Creatinine Clr Calc Pharmacy 22.5 ml/min; Est GFR (African American) 24.4; Est GFR (Non-African American) 21.1; Glucose 117 mg/dl (70-99); Potassium 4.2 mmol/L (3.5-5.1); Sodium 132 mmol/L (136-145)
[2020-08-04 07:18] LABS: NT Pro B Type Natriuretic Pept > 35000 pg/ml (0-1800)
[2020-08-04] MEDS: dexAMETHasone 6 MG in SYRINGE 0 ML IV SCH (07:36)
[2020-08-04] MEDS: METOPROLOL SUCC 25MG EXT REL TAB PO SCH (07:37)
[2020-08-04] MEDS: guaiFENesin 600 MG TABCR PO SCH ×2 (07:37→20:43)
[2020-08-04] MEDS: ASPIRIN 81 MG ECTAB PO SCH (07:37)
[2020-08-04] MEDS: allopurinoL 100 MG TAB PO SCH (07:37)
[2020-08-04] MEDS: APIXABAN 2.5 MG TAB PO SCH ×2 (07:37→20:42)
[2020-08-04] MEDS: DOCUSATE SODIUM 100 MG CAP PO SCH ×2 (07:38→20:42)
[2020-08-04] MEDS: FLUTICASONE PROPIONATE NA SPR 16 GM BTL SCH (07:41)
--- NOTE | 2020-08-04 08:02 | XRay Report ---
XR chest 1V portable CLINICAL HISTORY: Hypervolemia? COMPARISON STUDY: Chest radiograph August 03, 2020. FINDINGS: Right pleural catheter remains in place. There are small bilateral pleural effusions. There is no pneumothorax. Cardiomegaly is unchanged. Extensive bilateral airspace opacities have slightly progressed. IMPRESSION: 1. Mild progression of extensive bilateral airspace opacities which favor multifocal pneumonia. 2. Small bilateral pleural effusions. Right pleural catheter in place. No pneumothorax. ACT 112: Negative or not required by law. Electronically signed by: Jun Link M.D. 08/04/2020 8:00 AM
--- NOTE | 2020-08-04 13:05 | Hospitalist Progress Note ---
Date of Service August 04, 2020 Assessment & Plan (1) COVID-19: Covid-19 pneumonia. - Dexamethasone 6 mg IV daily (End date: 08/10/2019) - Remdesivir is contraindicated due to CKD. - Do not feel convalescent plasma would be of benefit especially with a history of pleural effusions and CHF - May be risk of worsening pulmonary edema - Incentive spirometry with flutter valve t.i.d. - Supplemental O2 to keep SpO2 > 94% -> Presently needing 6L NC which is up from 2L on 08/02. Work of breathing increased. CXR worsened. Not subjectively short of breath and without much cough. - Discussed with daughter today. Did give a fairly somber assessment as he appears to be tired out. (2) Chronic diastolic CHF (congestive heart failure): Presently appears slightly hypervolemic on exam. No swelling, but does hav e JVD. - Hold home furosemide - Gave Lasix 40 mg IV x 1 on 08/03 - Monitor I&Os, weights - He appears fairly euvolemic today. I don't see any JVD on careful examination. Labs would point toward pre-renal, but I'm not sure if it's cardiorenal or true pre-renal. Will defer any IV fluids or Lasix today. (3) CLL (chronic lymphocytic leukemia): WBC count elevated chronically. Prior evaluations in and out of the hospital. He is off of CLL treatment for the past several months. - Up to 120k on 08/04. Discussed with oncology and also reviewed UpToDate - Likely not much effect as long as WBC < 400k. No present needs. (4) Recurrent right pleural effusion: Presumably due to CLL as he reports prior leukemic cells in it. Typically drains about 600 mL. - Drain every other day beginning on 08/02/2020. - Drained 300 mL on 08/02 & 750 mL on 08/04. (5) Chronic kidney disease, stage III (moderate): With acute kidney injury in the setting of CKD stage III-IV. Baseline Cr 1.7 - 1.8. - Creatinine was 2.36 on admission. - Follow BMP in the morning (6) CAD (coronary artery disease): No chest pain. EKG without acute ischemic changes (stable from prior). Troponin on admission was 0.133 and stable at 12 hours at 0.11. - Continue ASA, statin, beta-grazyna - No further inpatient investigation (7) Atrial fibrillation: Permanent. - Continue metoprolol succinate 25 mg once daily - Rates ~100 bpm presently. - Continue apixaban, renally dosed (8) HTN (hypertension): Blood pressures are controlled today at 120/80. - Continue metoprolol (9) Prostate carcinoma: No acute needs. - Continue Casodex (10) DVT prophylaxis: Eliquis Admission and Anticipated Discharge Date Admission Date: July 31, 2020 Subjective More tired today. Falls asleep quickly, but denies pain or shortness of breath. Reports no fevers/chills, chest pain, shortness of breath, abdominal pain, nausea, or vomiting. Physical Exam Constitutional: WD/WN, vitals as above + acute distress Eyes: EOM intact bilaterally; no conjunctival abnormality ENMT: external ear and nose normal, oropharynx normal Neck: trachea midline, no thyromegaly normal visual inspection Respiratory: normal respiratory effort, lungs clear to auscultation + labored breathing; no respiratory distress Auscultation: lungs clear to auscultation bilaterally Cardiovascular: RRR, no murmur, no edema Rate/Rhythm: + tachycardic and + irregularly irregular Heart Sounds: normal S1 and normal S2 Vessels: + JVD Extremities: no edema Gastrointestinal (Abdomen): Inspection/Auscultation: abdomen normal to inspection; abdomen not distended Musculoskeletal: no cyanosis or clubbing, extremities motor strength 5/5 Skin: no rashes, warm and dry Neurologic: moves all extremities and awake Psychiatric: Orientation: alert, oriented to person and cooperative Results & Data Results & Data ([facility]) Vital Signs (Past 12 Hours) Vital Signs Temp Pulse Pulse Resp BP BP BP 08/04/20 08:00 119 H 08/04/20 07:46 37.0 C 61 24 118/88 08/04/20 06:16 129 H 147/77 H 08/04/20 02:59 36.6 C 123 H 30 H 128/77 Pulse Ox 08/04/20 08:00 08/04/20 07:46 93 08/04/20 06:16 08/04/20 02:59 93 PG Care Time/CCT Total # of Minutes Spent Total Time Spent with Patient: Total time spent is greater than 50% in coordinat ion of care (as documented) at patient's floor/unit and/or counseling patient: Coding Level of Care Code 19364 Subseq Hosp Care Lvl 3 Diagnoses COVID-19 U07.1 Chronic diastolic CHF (congestive heart failure) I50.32 CLL (chronic lymphocytic leukemia) C91.10 Recurrent right pleural effusion J90 Chronic kidney disease, stage III (moderate) N18.30 CAD (coronary artery disease) I25.10 Atrial fibrillation I48.91 HTN (hypertension) I10 Prostate carcinoma C61 DVT prophylaxis Z29.9
[2020-08-04] MEDS: MoRPHine SULFATE 2 MG/ML CARP IV PRN ×2 (14:27→17:52)
[2020-08-04] MEDS: ATORVASTATIN 40 MG TAB PO SCH (20:42)
[2020-08-04] MEDS: BICALUTAMIDE 50 MG TAB PO SCH (20:42)
[2020-08-04] MEDS: SENNA 8.6 MG TAB PO SCH (20:43)
[2020-08-04] MEDS: FAMOTIDINE 40 MG TABLET PO SCH (20:43)
[2020-08-04] MEDS: PANTOprazole 40 MG TAB PO SCH (20:43)
[2020-08-04] MEDS: MONTELUKAST SODIUM 10 MG TABLET PO SCH (20:44)
[2020-08-04] MEDS: ZOLPIDEM TARTRATE 10 MG TAB PO SCH (22:04)
[2020-08-05] MEDS: MoRPHine SULFATE 2 MG/ML CARP IV PRN ×3 (00:19→09:22)
[2020-08-05 05:50] LABS: Hematocrit (blood only) 34.5 % (42-52); Hemoglobin 10.6 g/dL (14.0-18.0); Mean Corpuscular Hemoglobin 31.1 pg (25-34); Mean Corpuscular Hgb Conc 30.7 g/dL (32-36); Mean Corpuscular Volume 101.2 fL (80-100); Mean Platelet Volume 11.2 fL (7.4-10.4); Platelet Count 228 K/uL (130-400); RDW Coefficient of Variation 15.6 % (11.5-14.5); RDW Standard Deviation 51.9 fL (36.4-46.3); Red Blood Count 3.41 M/uL (4.7-6.1)
[2020-08-05 06:08] LABS: BUN Creatinine Ratio 28.8 (10-20); Calcium 7.6 mg/dl (8.5-10.1); Creatinine Clr Calc Pharmacy 21.8 ml/min; Est GFR (African American) 23.5; Est GFR (Non-African American) 20.3; Magnesium 2.6 mg/dl (1.8-2.4); Potassium 5.2 mmol/L (3.5-5.1)
[2020-08-05] MEDS: METOPROLOL TARTRATE 1 MG/ML VIAL IV PRN (06:38)
[2020-08-05] MEDS: APIXABAN 2.5 MG TAB PO SCH (07:29)
[2020-08-05] MEDS: guaiFENesin 600 MG TABCR PO SCH (07:29)
[2020-08-05] MEDS: CALCITRIOL 0.25 MCG CAPSULE PO SCH (07:29)
[2020-08-05] MEDS: DOCUSATE SODIUM 100 MG CAP PO SCH (07:29)
[2020-08-05] MEDS: ASPIRIN 81 MG ECTAB PO SCH (07:29)
[2020-08-05] MEDS: METOPROLOL SUCC 25MG EXT REL TAB PO SCH (07:30)
[2020-08-05] MEDS: allopurinoL 100 MG TAB PO SCH (07:30)
[2020-08-05] MEDS: FLUTICASONE PROPIONATE NA SPR 16 GM BTL SCH (07:30)
[2020-08-05] MEDS: dexAMETHasone 6 MG in SYRINGE 0 ML IV SCH (08:07)
--- NOTE | 2020-08-05 08:27 | XRay Report ---
XR chest 1V portable HISTORY: COVID + , worsening O2 requirement COMPARISON: Chest 08/04/2020. FINDINGS: Diffuse bilateral airspace opacities, right greater than left. This is not significantly ch anged. Right chest tube is unchanged in position. Trace right pleural effusion persists. No pneumotho rax. The heart remains mildly enlarged. Old, healed left humeral neck fracture. IMPRESSION: 1. Diffuse bilateral airspace opacities, right greater than left. This is similar to the prior study. 2. Small right pleural effusion and right pleural catheter remain unchanged. ACT 112: Negative or not required by law. Electronically signed by: Jero Knight M.D. 08/05/2020 8:26 AM
--- NOTE | 2020-08-05 12:22 | Death Pronouncement Note ---
Date of Service August 05, 2020 Pronouncement Note Admission Date Admission Date: July 31, 2020 Date and Time of Date of : 08/05/20 Time of : 11:45 Contributing Factors (1) COVID-19: (2) Chronic diastolic CHF (congestive heart failure): (3) CLL (chronic lymphocytic leukemia): (4) Recurrent right pleural effusion: (5) Chronic kidney disease, stage III (moderate): (6) CAD (coronary artery disease): (7) Atrial fibrillation: (8) HTN (hypertension): (9) Prostate carcinoma: (10) DVT prophylaxis: Hospital Course Hospital Course: As noted in discharge summary Family updated. Summary Additional details: Patient from COVID-19 pneumonia, Additional Data Confirmation of : no pulse, no respirations and no heart sounds Family: contacted Attending physician: Steve Seaman Was code activated?: No Autopsy requested?: No silk examiner notified?: No Advance directives: Yes
--- NOTE | 2020-08-05 12:22 | Discharge Summary ---
Date of Service August 05, 2020 Admission HPI Per Admitting Provider Mr. Eddy is an 89-year-old male with history of CAD s/p Proximal LAD Bare Metal Stent, Cardiomyopathy, Chronic Diastolic CHF, Permanent Atrial Fibrillation, Hypertension, Dyslipidemia, CLL, Prostate Cancer s/p XRT and Casodex, CKD, Mild Aortic Stenosis, Moderate Mitral Regurgitation, Asthma, and Pleural Effusion s/p Pleurx Chest Tube -- who presents today complaining of a non-productive and worsening SOB over the past 4 days and has now tested positive for SARS CoV 2.. He denies loss of taste, or loss of smell. He has not had any fevers, chills, myalgias, or arthralgias. He denies any headache or stiff neck. He denies any angina pectoris or chest discomfort with his current illness. He denies syncope, near-syncope, palpitations, or bleeding. He has not been exposed to anyone with COVID 19 that he is aware of. He and his have basically been under quarantine for the past few months per their report. He has been tested for COVID on 2 separate occasions, more recently in June and testing has been negative, until today. Home health nurse from [facility] has been coming to the home every other day to drain his PleurX catheter. He states that there was a home health nurse visited him today and drained about 600 cc off of his right lung. The patient was sent here due to ongoing shortness of breath. He does not use home oxygen. [facility] ambulance was called to transport the patient here for continued shortness of breath after the pleural fluid was drained. They reported oxygen saturation of 90% on room air. He weighs himself daily and reports stable weights. He maintains a low- sodium diet. HISTORICAL BACKGROUND: In October 2017 he was hospitalized for NSTEMI (peak troponin 8.67) and was found to have significantly reduced LV systolic function. He underwent cardiac catheterization and PCI of LAD. Symptoms improved LV systolic function normalized. Over time he once again developed significant dyspnea with exertion and was found to have in stent restenoses, prompting repeat PCI on 03/29/2018. Initially, stage PCI of RCA was planned however symptoms improved and he has opted for medical therapy. He has had the following studies/procedures: 1. Holter 12/25/2016: Sinus rhythm with average heart rate 63, ranging 41-103. Frequent PACs and PVCs. Occasional SVT up to 9 beats in duration. Isolated nonsustained episodes of VT/AIVR up to 4 beats. Patient events correlate with PVCs, ventricular couplets, and 1 PAC. 2. Dobutamine stress echo 12/30/2016: Negative at 109% MPHR. Negative ECG. Frequent PVCs, PACs, ventricular couplets, and nonsustained atrial tachycardia during dobutamine. No chest pain. Baseline EF 60-65%. Normal wall motion. Mild LVH. Type 1 diastolic dysfunction. Mild MR. Sclerotic aortic valve without stenosis. 3. Cardiac catheterization 11/10/2017: Proximal LAD 95%. Mid LAD 50-60%. Large OM1 40-50% proximal. Proximal RCA 80-90%. Distal RCA 30-40%. Mid PDA 50-60%. Dominant RCA. LVEDP 16. Proximal LAD underwent 3.5 x 15 mm integrity bare metal stent post dilated with 3.5 noncompliant balloon. 4. Echo 11/10/2017: LVEF 25%-30%. Type 1 diastolic dysfunction. Akinesis of the entire apex. Moderate left atrial dilation. Mild AI. Mild MR. RVSP 40- 50. 5. Echo 11/25/2017: Normal LV size and systolic function. EF 55%. Hypokinesis involving the apex, distal lateral, distal anterior, distal inferior, distal septal wall segments. Mild LVH. Type 1 diastolic dysfunction. Mild MR. Sclerotic aortic valve. RVSP 23. 6. Echo 03/09/2018: Normal LV size. EF 50-55%. Frequent ectopy. Mild LVH. Mild MR. Type 1 diastolic dysfunction. Normal RVSP. Ascending aorta 4.1 cm. 7. Cardiac catheterization 03/29/2018: Proximal LAD 80-90% in stent restenoses. Mid LAD sequential 40-50%. Small caliber Ostial D1 60%. OM1 mid 50-60%. Proximal RCA 90%. Distal RCA 40-50%. Mid PDA 50-60%. LVEDP 20. Proximal LAD in stent stenosis underwent PCI with 3.5 x 15 mm Xience MARGARET post dilated with 3.5 noncompliant balloon. 8. Echo 06/07/2019: Mildly reduced LV systolic function. EF 40%-45%. Global hypokinesis. Mild left atrial dilation. Mild right ventricular dilation. Mild . Moderate MR. RVSP 30-40. Principal Diagnosis COVID 19 Discharge Exam exam noted on note Discharge Data Allergies Allergy/AdvReac Type Severity Reaction Status Date / Time lactose Allergy Mild Gastrointestinal Verified 08/03/20 15:00 Upset Penicillins Allergy Mild Hives Verified 07/31/20 14:59 Sulfa (Sulfonamide Allergy Unknown UNKNOWN Verified 07/31/20 14:59 Antibiotics) Consultations 07/31/20 15:24 ED Decision to Admit Stat Hospital Course (1) COVID-19: Covid-19 pneumonia. - Dexamethasone 6 mg IV daily (End date: 08/10/2019) - Remdesivir is contraindicated due to CKD. - Do not feel convalescent plasma would be of benefit especially with a history of pleural effusions and CHF - May be risk of worsening pulmonary edema - Incentive spirometry with flutter valve t.i.d. -overnight, patient required more oxygen and detriorated quickly. He was comofrtable and resting. Patient at 11:45 on 08/05/20 (2) Chronic diastolic CHF (congestive heart failure): Presently appears slightly hypervolemic on exam. No swelling, but does have JVD. - Hold home furosemide - Gave Lasix 40 mg IV x 1 on 08/03 - Monitor I&Os, weights (3) CLL (chronic lymphocytic leukemia): WBC count elevated chronically. Prior evaluations in and out of the hospital. He is off of CLL treatment for the past several months. - Up to 120k on 08/04. Discussed with oncology and also reviewed UpToDate - Likely not much effect as long as WBC < 400k. No present needs. (4) Recurrent right pleural effusion: Presumably due to CLL as he reports prior leukemic cells in it. Typically drains about 600 mL. - Drain every other day beginning on 08/02/2020. - Drained 300 mL on 08/02 & 750 mL on 08/04. (5) Chronic kidney disease, stage III (moderate): With acute kidney injury in the setting of CKD stage III-IV. Baseline Cr 1.7 - 1.8. - Creatinine was 2.36 on admission. - Followed BMP (6) CAD (coronary artery disease): No chest pain. EKG without acute ischemic changes (stable from prior). Troponin on admission was 0.133 and stable at 12 hours at 0.11. - Continue ASA, statin, beta-grazyna (7) Atrial fibrillation: Permanent. - Continue metoprolol succinate 25 mg once daily - Rates ~100 bpm presently. - Continue apixaban, renally dosed (8) HTN (hypertension): Blood pressures are controlled today at 120/80. - Continue metoprolol (9) Prostate carcinoma: No acute needs. - Continue Casodex (10) DVT prophylaxis: Eliquis Total Time Total Time Spent Total Time Spent (In Minutes): 25 Discharge Plan Discharge Items Patient Disposition: Coding Level of Care Code D/C Day Management <30 mins Diagnoses COVID-19 U07.1 Chronic diastolic CHF (congestive heart failure) I50.32 CLL (chronic lymphocytic leukemia) C91.10 Recurrent right pleural effusion J90 Chronic kidney disease, stage III (moderate) N18.30 CAD (coronary artery disease) I25.10 Atrial fibrillation I48.91 HTN (hypertension) I10 Prostate carcinoma C61 DVT prophylaxis Z29.9
--- NOTE | 2020-08-16 09:56 | Coding Query ---
To promote full compliance with coding requirements relating to patient care, provider participation is requested in all cases of operations inspector uncertainty. Please assist us with the question(s) below: Coding Question(s): The diagnosis(es) below was documented in the (operations inspector fill out source document ie H&P, progress notes, etc.) then subsequently fell off all further documentation. Please indicate if it is still a possible diagnosis or ruled out. Physician's Response(s): ACUTE RESPIRATORY FAILURE (documented by Supervising Physician on H&P) ( x ) Diagnosed and POA ( ) Diagnosed and not POA ( ) Ruled out ( ) Other (please specify) MTDD
== END 2020-08-05 13:29 | disposition expired | DRG 177 ==
LOC: ED 12:40 → SUATTDRO 16:33 → 2S 16:33